=== PATIENT | female | born 1960 | race Caucasian/White ===

== ENCOUNTER 2020-05-20 10:55 | Outpatient (CLI) | payer OTHER, MEDICARE, SELFPAY ==
--- NOTE | ~2020-05-20 | XR_ITS ---
EXAMINATION: HAND-MADAY ARTHRITIS 3+VIEWS DATE: 05/20/2020 11:45 INDICATION: Rheumatoid arthritis TECHNIQUE: Posteroanterior, lateral, and oblique views of the left and of the right hands as well as a ballcatchers view of both hands were obtained. COMPARISON: None. FINDINGS: Bone alignment is normal. No fracture. Mild polyarticular osteoarthritis characterized by nonuniform joint space narrowing and/or small marginal osteophytes at the bilateral triscaphe, first carpometaca rpal and multiple metacarpophalangeal and interphalangeal joints. Subarticular lucency with thin scle rotic margins likely osteoarthritis related degenerative subchondral cyst at the left trapezium. No p eriarticular erosions to suggest an inflammatory arthritis such as rheumatoid. Soft tissues are unrem arkable. IMPRESSION: 1. Typical distribution of mild polyarticular osteoarthritis in both hands. Reviewed, dictated and finalized at location B. UX WEB DEVELOPER
--- NOTE | ~2020-05-20 | XR_ITS ---
EXAMINATION: XR knee LT 3V DATE: 05/20/2020 11:45 INDICATION: Rheumatoid arthritis with rheumatoid factor of multiple sites. TECHNIQUE: 3 views of left knee were obtained. COMPARISON: Left knee radiographs 08/06/2010 FINDINGS: Bone alignment is normal. No fracture. There is moderate osteoarthritis of medial compartme nt and mild osteoarthritis of lateral and patellofemoral compartments. No knee joint effusion. IMPRESSION: 1. Moderate left knee osteoarthritis. Reviewed, dictated and finalized at location A. ICE ATTENDANT
--- NOTE | ~2020-05-20 | XR_ITS ---
EXAMINATION: XR foot RT standing 2V, XR foot LT standing 2V DATE: 05/20/2020 11:45 INDICATION: Rheumatoid arthritis TECHNIQUE: 1. Standing dorsal plantar and lateral views of the right foot were obtained. 2. Standing dorsal plantar and lateral views of the left foot were obtained. COMPARISON: None. FINDINGS: Normal alignment at the bilateral feet. No fractures. Bilateral large Achilles and plantar calcaneal spurs. Additional smaller enthesophytes along the dorsal aspect of the bilateral mid feet. Minimal to mild polyarticular osteoarthritis characterized by nonuniform joint space narrowing and/or tiny eliot inal osteophytes at the left ankle, bilateral first metatarsophalangeal and several tarsal metatarsal and interphalangeal joints. No erosions to suggest an inflammatory arthritis such as rheumatoid. IMPRESSION: 1. Minimal to mild polyarticular osteoarthritis at the bilateral feet and right ankle. No erosions to suggest an inflammatory arthritis such as rheumatoid. 2. Large bilateral Achilles and plantar calcaneal enthesophytes. Reviewed, dictated and finalized at location B. OR SHAREPOINT ARCHITECT IMPRESSION: 1. Minimal to mild polyarticular osteoarthritis at the bilateral feet and right ankle. No erosions to suggest an inflammatory arthritis such as rheumatoid. 2. Large bilateral Achilles and plantar calcaneal enthesophytes.
--- NOTE | ~2020-05-20 | XR_ITS ---
EXAMINATION: XR knee RT 3V DATE: 05/20/2020 11:45 INDICATION: Rheumatoid arthritis with rheumatoid factor of multiple sites. TECHNIQUE: 3 views of right knee were obtained. COMPARISON: None. FINDINGS: Bone alignment is normal. No fracture. There is moderate osteoarthritis of medial compartme nt and mild osteoarthritis of lateral and patellofemoral compartments. There is a small knee joint ef fusion. IMPRESSION: 1. Moderate right knee osteoarthritis. 2. Small right knee joint effusion. Reviewed, dictated and finalized at location A. STRIAL CONVEYOR BELT REPAIRER
--- NOTE | ~2020-05-20 | XR_ITS ---
EXAMINATION: XR hip BI 2V w AP pelvis DATE: 05/20/2020 11:45 INDICATION: Rheumatoid arthritis TECHNIQUE: Anteroposterior view of the pelvis and anteroposterior and frog-leg lateral views of the l eft hip and anteroposterior and frog-leg lateral views of the right hip and were obtained. COMPARISON: None. FINDINGS: Alignment is normal. No fracture or suspected avascular necrosis. Minimal nonuniform joint space narr owing at both hips with marginal osteophytes about the acetabula consistent with mild osteoarthritis. Additional mild osteoarthritis at the bilateral sacral iliac joints. Moderate lumbar spondylosis. No erosions to suggest an inflammatory arthritis such as rheumatoid. Enthesophytes at the bilateral ant erior iliac spines and greater trochanters. Heterotopic ossicle likely at the right buttock projectin g over the soft tissues superolateral to the right hip. Cholecystectomy clips in right upper quadrant . IMPRESSION: 1. Mild bilateral hip and sacroiliac osteoarthritis. No findings to suggest an inflammatory arthritis such as rheumatoid. 2. Moderate lumbar spondylosis. Reviewed, dictated and finalized at location B. L POURER HELPER
== END 2020-05-20 10:56 | disposition home or self-care (01) ==
LOC: ANHIMG 11:04
PROVIDERS: PCP Physician Assistant; Visit Provider Internal Medicine
DX: E55.9 Vitamin D deficiency, unspecified (principal); M05.79 Rheumatoid arthritis with rheumatoid factor of multiple sites without organ or systems involvement; Z11.59 Encounter for screening for other viral diseases; M17.0 Bilateral primary osteoarthritis of knee; M25.461 Effusion, right knee; M19.072 Primary osteoarthritis, left ankle and foot; M19.071 Primary osteoarthritis, right ankle and foot; M77.32 Calcaneal spur, left foot; M77.31 Calcaneal spur, right foot; M19.042 Primary osteoarthritis, left hand; M19.041 Primary osteoarthritis, right hand; M16.0 Bilateral primary osteoarthritis of hip; M47.816 Spondylosis without myelopathy or radiculopathy, lumbar region
CPT/HCPCS: 73130; 73521; 73562; 73620

== ENCOUNTER 2024-05-03 10:00 | Outpatient (CLI) | payer MEDICARE, SELFPAY ==
--- NOTE | ~2024-05-03 | CT_ITS ---
EXAMINATION: CT lung screening DATE: 05/03/2024 10:28 INDICATION: NICOTINE DEPENDENCE TECHNIQUE: Computed tomography (CT) of the chest was performed without intravenous contrast. Addition al 3D reconstructions utilizing coronal maximum intensity projection (MIP) were performed. Automated exposure control and iterative reconstruction technique were employed. The dose-length product was 54 8.89 mGy-cm. COMPARISON: 10/22/2015 FINDINGS: Unilateral left-sided calcified pleural plaques which suggests prior exudative effusion. There is unc hanged chronic linear atelectasis/scarring at the left lower lung. Mild emphysema. Small calcite left upper and lower lobe nodules consistent with old granulomatous disease. No other suspicious pulmonar y nodules, pneumonia, pulmonary edema or pleural effusion. Heart size normal. Atherosclerotic coronar y artery calcific lesion. Thoracic aorta is normal in caliber. No pathologically enlarged thoracic ly mphadenopathy. Change of prior left thyroidectomy. Cholecystectomy clips the gallbladder fossa. Visua lized upper abdomen is otherwise unremarkable. Moderate thoracic spondylosis with bridging osteophyte s at multiple levels consistent with diffuse idiopathic skeletal hyperostosis (DISH). IMPRESSION: 1. Lung-RADS category 1: Negative. Continue annual screening with noncontrast low-dose chest CT in 12 months. Reviewed, dictated and finalized at location A. [employer] IMPRESSION: 1. Lung-RADS category 1: Negative. Continue annual screening with noncontrast l ow-dose chest CT in 12 months.
--- OUTSIDE RECORDS SUMMARY | 2024-05-03 10:17 | XMS_ITS | Referral Summary ---
Author Organization [facility] Address [address] [place] [id number] Care Team Providers Care Laborer Rags Name Role Phone Deandre Fonseca Primary Care Provider + Allergies Active Allergy Reactions Criticality Noted Date Comments Codeine Vomiting Low 05/30/2019 Venlafaxine Other (See comments) Low 05/30/2019 Medications traMADoL (ULTRAM) 50 mg tablet 2 020 Active rivaroxaban (Xarelto) 20 mg tablet daily Active rosuvastatin (CRESTOR) 5 mg tablet rosuvastatin 5 mg tablet TAKE ONE TABLET BY MOUTH EVERY DAY Active potassium chloride ER (potassium chloride ER) 20 mEq CR tablet potassium chloride ER 20 mEq tablet,extended release TAKE ONE CAPSULE BY MOUTH ONCE DAILY Active PARoxetine mesylate,menop. sym, (Brisdelle) 7.5 mg capsule daily Active PARoxetine (PaxiL) 10 mg tablet daily Active pantoprazole DR (PROTONIX) 40 mg EC tablet daily Active losartan-hydroC HLOROthiazide (HYZAAR) 50-12.5 mg per tablet losartan 50 mg-hydrochlorothiazide 12.5 mg tablet Active levothyroxine (SYNTHROID) 175 mcg tablet daily Active levoFLOXacin (LEVAQUIN) 500 mg tablet daily Active hydroCHLOROthia zide (MICROZIDE) 12.5 mg capsule hydrochlorothiazide 12.5 mg capsule Active furosemide (LASIX) 40 mg tablet furosemide 40 mg tablet Take 1 tablet(s) every day by oral route in the morning for 10 days. Active fluticasone propion-salmete roL (Advair Diskus) 250-50 mcg/dose diskus inhaler Advair Diskus 250 mcg-50 mcg/dose powder for inhalation INHALE ONE DOSE BY MOUTH TWICE DAILY RINSE MOUTH Active fluconazole (DIFLUCAN) 150 mg tablet fluconazole 150 mg tablet Take 1 tablet every 72 hours by oral route for 7 days. Active docusate sodium (COLACE) 100 mg capsule every 12 hours Activ e budesonide/form oterol fumarate (SYMBICORT INHAL) Symbicort Active betamethasone dipropionate (DIPROLENE) 0.05 % ointment betamethasone dipropionate 0.05 % topical ointment Active albuterol HFA (Ventolin HFA) 90 mcg/actuation inhaler Ventolin HFA 90 mcg/actuation aerosol inhaler INHALE TWO PUFFS BY MOUTH THREE TIMES DAILY Active adalimumab (Humira) 40 mg/0.8 mL pen injector kit 0.8 mL Active acetaminophen (TYLENOL) 500 mg tablet Take 500 mg by mouth every 6 (six) hours as needed for pain Active Active Problems Problem Noted Date Diagnosed Date Leukopenia 05/28/2019 Immunizations Name Administration Dates Next Due Influenza, Quadrivalent, Split, Intramuscular ,01/03/2017 Influenza, Quadrivalent, Spl it, Preservative Free, Intramuscular 01/09/2018 Social History Tobacco Use Types Packs/Day Years Used Date Smoking Tobacco: Former Cigarettes 1 4 0 04/16/2011 - 04/16/2015 Alcohol Use Standard Drinks/Week Comments Never 0 (1 standard drink = 0.6 oz pur e alcohol) AUDIT-C Answer Date Recorded Q1: How often do you have a drink containing alc ohol? 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 Not on file Not on file Last Filed Vital Signs Vital Sign Reading Time Taken Comments Blood Pressure 142/72 05/30/2019 2:38 PM CDT Pulse 82 05/30/2019 2:38 PM CDT Temperature 36.6 C (97.9 F) 05/30/2019 2:38 PM CDT Respiratory Rate 16 05/30/2019 2:38 PM CDT Oxygen Saturation 98% 05/30/2019 2:38 PM CDT Inhaled Oxygen Concentration - - Weight 156.6 kg (345 lb 3.2 oz) 05/30/2019 2:38 PM CDT Height 168 cm (5' 6.14 ) 05/30/2019 2:38 PM CDT Body Mass Index 55.48 05/30/2019 2:38 PM CDT Plan of Treatment Not on file Insurance MEDICARE [facility] Address: [facility] [address] [place] [address] [facility] Care Teams Laborer Rags Relationship Specialty Start Date End Date Deandre Fonseca PA [address] [place] [address] PCP - General Internal Medicine 05/30/19
--- OUTSIDE RECORDS SUMMARY | 2024-05-03 10:17 | XMS_ITS | Clinical Summary ---
Author Organization [facility] Address [address] [place] [id number] Care Team Providers Care Glass Blower Helper Name Role Phone Deandre Fonseca Primary Care [...] Quadrivalent, Spl it, Preservative Free, Intramuscular 01/09/2018 Surgical History Surgery Date Site/Laterality Comments COLONOSCOPY THYROID SURGERY CHOLECYSTECTOMY TUBAL LIGATION Medical History Medical History Date Comments Hypertension Tuberculosis Hypothyroidism (acquired) Thyroid neoplasm Factor 5 Leiden mutation, heterozygous (HCC) COPD (chronic obstructive pulmonary disease) (HC C) GERD (gastroesophageal reflux disease) Rheumatoid arthritis (HCC) Pulmonary embolus (HCC) DVT (deep venous thrombosis) (CMS/HCC) (HCC) Family History Medical History Relation Name Comments No Known Problems Father No Known Problems Mother Relation Name Status Comments Father Mother Social History Tobacco Use Types Packs/Day Years Used Date Smoking Tobacco: Former Cigarettes 1 4 0 04/16/2011 - 04/16/2015 Alcohol Use Standard Drinks/Week Comments Never 0 (1 standard drink = 0.6 oz pur e alcohol) AUDIT-C Answer Date Recorded Q1: How often do you have a drink containing alc ohol? 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
--- OUTSIDE RECORDS SUMMARY | 2024-05-03 10:17 | XMS_ITS | Data Portability ---
Author Organization [facility] [employer] Main Office Address [address] [place] [address] Assessment No assessment recorded. Plan of Treatment Reminders Order Date Submit Date Provider Last Modified By Organization Details Last Modified Time Details Appointments None recorded. Lab None recorded. Referral None recorded. Procedures cystoscopy (PROC) 2022 023 Not available 4 08:10:00 Surgeries None recorded. Imaging US, bladder 2022 023 [email or web address] [facility] [place], [address] [place] [address], [address], [place], [address], 3 11:16:12 Medication Orders Cipro 500 mg tablet 2022 023 [email or web address] Not available 3 12:45:26 Patient TargetsNo targets recorded. Patient InstructionsNo instructions recorded. Reason for Referral None Reported. Results Created Date Observation Date Name Description Value Unit Range Abnormal Flag Note LastModifiedBy Organization Detail LastModifiedTime 10/05/19 22 10/11/2021 MISCE LLANE OUS TEST misc test see commen t SENT TO REFER ENCE LAB; SEE SEPAR ATE REPOR T Not Available [facility] (Lab) [address] [place] [address], [address], 10/11/2021 09:35:06 10/05/19 22 10/05/2021 THYRO ID PEROX IDASE (TPO) AB thyroid peroxidase (tpo) Ab 15 IU/mL 0-34 Perfo rmed at: CB - [facility] [address] [address] Lab Direc tor: Marciano camarillo PhD, Phone : [phone] Not Available [facility] (Lab) [address] [place], [address], 10/05/2021 09:11:43 10/05/19 22 10/04/2021 HEMOG LOBIN A1C HA1C 5.6 % 4.0-6. 0 Diabe geetha Scree philipp Crite monae: <5.7% Consi stent with absen ce of diabe geetha 5.7-6 .4% Consi stent with incre ased risk for diabe geetha (pred iabet es) >OR=6 .5% Consi stent with diabe geetha REFER ENCE: Diabe geetha Care 2016, 39(Avery ppl.1 ):s13 -s22 Not Available [facility] (Lab) [address] [place], [address], 10/04/2021 21:32:38 10/05/19 22 10/04/2021 FOLAT E, SERUM /PLAS MA folate >20.0 NG/mL 2.76-2 0.0 Not Available [facility] (Lab) [address] [place], [address], 10/04/2021 15:22:49 10/05/19 22 10/04/2021 VITAM IN B12 (SE CON ) vb12 617 pg/mL 239-93 1 Not Available [facility] (Lab) [address] [place], [address], 10/04/2021 15:22:48 10/05/19 22 10/04/2021 TSH thyroid-stim ulating hormone 0.216 uIU/m L 0.465- 4.680 low Not Available [facility] (Lab) [address] [place], [address], 10/04/2021 14:49:15 10/05/19 22 10/04/2021 T3 FREE free T3 3.3 pg/mL 2.77-5 .27 Not Available [facility] (Lab) [address] [place], [address], 10/04/2021 14:36:48 10/05/19 22 10/04/2021 T4 FREE free T4 1.57 NG/dL 0.78-2 .19 Not Available [facility] (Lab) [address] [place], [address], 10/04/2021 14:36:42 10/05/19 22 10/04/2021 VITAM IN D 25-HY DROXY vd25oh 56.7 NG/mL 30-100 Vitam in D Statu s: Defic ient: <20 ng/mL Insuf ficie nt: 20-29 ng/mL Suffi cient : 30-10 0 ng/mL Not Available [facility] (Lab) [address] [place], [address], 10/04/2021 14:33:24 10/05/19 22 10/04/2021 IRON/ TIBC PANEL total iron binding capacity 308 mcg/d L 265-47 5 Not Available [facility] (Lab) [address] [place], [address], 10/04/2021 14:25:50 10/05/19 22 10/04/2021 IRON/ TIBC PANEL % transferrin saturation 30 % 20-55 Not Available [facility] (Lab) [address] [place], [address], 10/04/2021 14:25:50 10/05/19 22 10/04/2021 IRON/ TIBC PANEL unsaturated iron bind capacity 216 mcg/d L 126-38 2 Not Available [facility] (Lab) [address] [place], [address], 10/04/2021 14:25:50 10/05/19 22 10/04/2021 IRON/ TIBC PANEL iron 92 mcg/d L 42-175 Not Available [facility] (Lab) [address] [place], [address], 10/04/2021 14:25:50 10/05/19 22 10/04/2021 LIPID PANEL cholesterol 181 mg/dL 140-19 9 NIH LUMA NSUS RECOM MENDA TION FOR ETHAN STERO L: ADULT CHILD LOW RISK: <200 <170 BORDE RLINE : <200- 239 ----- HIGH RISK: >240 >200 Not Available [facility] (Lab) [address] [place], [address], 10/04/2021 14:20:18 10/05/19 22 10/04/2021 LIPID PANEL triglyceride s 160 mg/dL 0-150 high NIH LUMA NSUS REPOR T RECOM MENDA TION FOR TRIGL YCERI ELIZABETH: ADULT CHILD LOW RISK: <150 ----- BODER LINE: 150-1 99 ----- HIGH RISK: >200 ----- Not Available [facility] (Lab) [address] [place], [address], 10/04/2021 14:20:18 10/05/19 22 10/04/2021 LIPID PANEL HDL cholesterol 51 mg/dL 40- Not Available [facility] (Lab) [address] [place], [address], 10/04/2021 14:20:18 10/05/19 22 10/04/2021 LIPID PANEL LDL cholesterol, calculated 98 mg/dL 0-130 NIH LUMA NSUS REPOR T RECOM MENDA TIONS FOR LDL: ADULT CHILD LOW RISK <130 <110 (OPTI MAL LDL) <100 ----- BORDE RLINE : 130-1 59 ----- HIGH RISK: >160 >130 A TRIGL YCERI DE RESUL T >400 INVAL IDATE S THE CALCU LATIO N FOR LDL FRACT IONAT ION - THE LDL RESUL T WILL NOT BE REPOR MYRNA. Not Available [facility] (Lab) [address] [place], [address], 10/04/2021 14:20:18 10/05/19 22 10/04/2021 COMPR EHENS MAYDA METAB OLIC PANEL sodium 139 mmol/ L 137-14 5 Not Available [facility] (Lab) [address] [place], [address], 10/04/2021 14:20:15 10/05/19 22 10/04/2021 COMPR EHENS MAYDA METAB OLIC PANEL potassium 3.9 mmol/ L 3.5-5. 1 Not Available [facility] (Lab) [address] [place], [address], 10/04/2021 14:20:15 10/05/19 22 10/04/2021 COMPR EHENS MAYDA METAB OLIC PANEL chloride 107 mmol/ L 98-107 Not Available [facility] (Lab) [address] [place], [address], 10/04/2021 14:20:15 10/05/19 22 10/04/2021 COMPR EHENS MAYDA METAB OLIC PANEL carbon dioxide 27 mmol/ L 22-30 Not Available [facility] (Lab) [address] [place], [address], 10/04/2021 14:20:15 10/05/19 22 10/04/2021 COMPR EHENS MAYDA METAB OLIC PANEL anion gap 8.9 mmol/ L 14-22 low Not Available [facility] (Lab) [address] [place], [address], 10/04/2021 14:20:15 10/05/19 22 10/04/2021 COMPR EHENS MAYDA METAB OLIC PANEL glucose 101 mg/dL 70-99 high Not Available [facility] (Lab) [address] [place], [address], 10/04/2021 14:20:15 10/05/19 22 10/04/2021 COMPR EHENS MAYDA METAB OLIC PANEL BUN 11 mg/dL 8-19 Not Available [facility] (Lab) [address] [place], [address], 10/04/2021 14:20:15 10/05/19 22 10/04/2021 COMPR EHENS MAYDA METAB OLIC PANEL creatinine 0.69 mg/dL 0.66-1 .25 Not Available [facility] (Lab) [address] [place], [address], 10/04/2021 14:20:15 10/05/19 22 10/04/2021 COMPR EHENS MAYDA METAB OLIC PANEL GFR >60 Refer ence Range : [place] ge GFR Healt hy Adult : >60 mL/mi n/1.7 3 m2 Chron ic Kidne y Disea se: 15-60 mL/mi n/1.7 3 m2 Kidne y Failu re: <15/m L/min /1.73 m2 www.n iddk. nih.g ov The MDRD study equat ion has not been valid ated in child brayan <18 years of age; pregn ant women ; the elder ly >85 years of age; or in some racia l or ethni c subgr oups, such as Histamy nics. Outsi de the valid ated mena eters , estim ated GFR is less accur ate, requi ring clini alvin judgm ent on a case- by-ca se basis . Clini alvin inter preta tion for other races and ages must be made by the clini cait. The MDRD study equat ion has not been valid ated for the evalu ation of serum creat inine relat ed to nutri benny l statu s or medic ation usage . For perso ns <18 years of age, a pedia tric GFR calcu lator is avail able on the F websi te: https ://adolfo w.javier hahn.o rg/pr ofess ional s/kdo qi/gf r_cal culat or Not Available [facility] (Lab) [address] [place], [address], 10/04/2021 14:20:15 10/05/19 22 10/04/2021 COMPR EHENS MAYDA METAB OLIC PANEL alkaline phosphatase 81 U/L 38-126 Not Available [facility] (Lab) [address] [place], [address], 10/04/2021 14:20:15 10/05/19 22 10/04/2021 COMPR EHENS MAYDA METAB OLIC PANEL alanine aminotransfe rase 26 U/L 0-35 Not Available [facility] (Lab) [address] [place], [address], 10/04/2021 14:20:15 10/05/19 22 10/04/2021 COMPR EHENS MAYDA METAB OLIC PANEL aspartate aminotransfe rase 31 U/L 15-37 Not Available [facility] (Lab) [address] [place], [address], 10/04/2021 14:20:15 10/05/19 22 10/04/2021 COMPR EHENS MAYDA METAB OLIC PANEL bilirubin, total 0.80 mg/dL 0.20-1 .30 Not Available [facility] (Lab) [address] [place], [address], 10/04/2021 14:20:15 10/05/19 22 10/04/2021 COMPR EHENS MAYDA METAB OLIC PANEL calcium 9.1 mg/dL 8.4-10 .2 Not Available [facility] (Lab) [address] [place], [address], 10/04/2021 14:20:15 10/05/19 22 10/04/2021 COMPR EHENS MAYDA METAB OLIC PANEL total protein 6.9 g/dL 6.3-8. 2 Not Available [facility] (Lab) [address] [place], [address], 10/04/2021 14:20:15 10/05/19 22 10/04/2021 COMPR EHENS MAYDA METAB OLIC PANEL albumin 4.1 g/dL 3.4-5. 0 Not Available [facility] (Lab) [address] [place], [address], 10/04/2021 14:20:15 10/05/19 22 10/04/2021 COMPR EHENS MAYDA METAB OLIC PANEL globulin 2.8 g/dL 2.6-4. 2 Not Available [facility] (Lab) [address] [place], [address], 10/04/2021 14:20:15 10/05/19 22 10/04/2021 COMPR EHENS MAYDA METAB OLIC PANEL A/G ratio 1.5 ratio 1.0-2. 0 Not Available [facility] (Lab) [address] [place], [address], 10/04/2021 14:20:15 10/05/19 22 10/04/2021 CBC/C OMPLE TE BLD COUNT W/DIF F white blood cells 3.4 x10'3 /uL 4.2-10 .8 low Not Available [facility] (Lab) [address] [place], [address], 10/04/2021 13:56:21 10/05/19 22 10/04/2021 CBC/C OMPLE TE BLD COUNT W/DIF F red blood cells 4.75 x10'6 /uL 3.80-5 .20 Not Available [facility] (Lab) [address] [place], [address], 10/04/2021 13:56:21 10/05/19 22 10/04/2021 CBC/C OMPLE TE BLD COUNT W/DIF F hemoglobin 13.8 g/dL 12.0-1 5.6 Not Available [facility] (Lab) [address] [place], [address], 10/04/2021 13:56:21 10/05/19 22 10/04/2021 CBC/C OMPLE TE BLD COUNT W/DIF F hematocrit 42.8 % 35.7-4 5.7 Not Available [facility] (Lab) [address] [place], [address], 10/04/2021 13:56:21 10/05/19 22 10/04/2021 CBC/C OMPLE TE BLD COUNT W/DIF F mean red cell volume 90.1 fL 82.0-9 9.0 Not Available [facility] (Lab) [address] [place], [address], 10/04/2021 13:56:21 10/05/19 22 10/04/2021 CBC/C OMPLE TE BLD COUNT W/DIF F mean red cell hemoglobin 29.1 pg 27.0-3 3.0 Not Available [facility] (Lab) [address] [place], [address], 10/04/2021 13:56:21 10/05/19 22 10/04/2021 CBC/C OMPLE TE BLD COUNT W/DIF F mean RBC HGB concentratio n 32.2 g/dL 31.0-3 6.0 Not Available [facility] (Lab) [address] [place], [address], 10/04/2021 13:56:21 10/05/19 22 10/04/2021 CBC/C OMPLE TE BLD COUNT W/DIF F red cell distribution width 13.2 % 11.8-1 5.5 Not Available [facility] (Lab) [address] [place], [address], 10/04/2021 13:56:21 10/05/19 22 10/04/2021 CBC/C OMPLE TE BLD COUNT W/DIF F platelets 171 x10'3 /uL 150-40 0 Not Available [facility] (Lab) [address] [place], [address], 10/04/2021 13:56:21 10/05/19 22 10/04/2021 CBC/C OMPLE TE BLD COUNT W/DIF F mean platelet volume 10.5 fL 9.0-12 .4 Not Available [facility] (Lab) [address] [place], [address], 10/04/2021 13:56:21 10/05/19 22 10/04/2021 CBC/C OMPLE TE BLD COUNT W/DIF F neutrophils 42.0 % 39.0-7 2.0 Not Available [facility] (Lab) [address] [place], [address], 10/04/2021 13:56:21 10/05/19 22 10/04/2021 CBC/C OMPLE TE BLD COUNT W/DIF F lymphocytes 41.3 % 16.0-4 7.0 Not Available [facility] (Lab) [address] [place], [address], 10/04/2021 13:56:21 10/05/19 22 10/04/2021 CBC/C OMPLE TE BLD COUNT W/DIF F monocytes 10.8 % 5.0-12 .0 Not Available [facility] (Lab) [address] [place], [address], 10/04/2021 13:56:21 10/05/19 22 10/04/2021 CBC/C OMPLE TE BLD COUNT W/DIF F eosinophils 4.7 % 1.0-7. 0 Not Available [facility] (Lab) [address] [place], [address], 10/04/2021 13:56:21 10/05/19 22 10/04/2021 CBC/C OMPLE TE BLD COUNT W/DIF F basophils 0.9 % 0.0-2. 0 Not Available [facility] (Lab) [address] [place], [address], 10/04/2021 13:56:21 10/05/19 22 10/04/2021 CBC/C OMPLE TE BLD COUNT W/DIF F immature granulocytes 0.3 % 0.00-0 .50 Not Available [facility] (Lab) [address] [place], [address], 10/04/2021 13:56:21 10/05/19 22 10/04/2021 CBC/C OMPLE TE BLD COUNT W/DIF F neutrophils, absolute count 1.45 x10'3 /uL 1.5-8. 0 low Not Available [facility] (Lab) [address] [place], [address], 10/04/2021 13:56:21 10/05/19 22 10/04/2021 CBC/C OMPLE TE BLD COUNT W/DIF F lymphocytes, absolute count 1.42 x10'3 /uL 1.07-3 .43 Not Available [facility] (Lab) [address] [place], [address], 10/04/2021 13:56:21 10/05/19 22 10/04/2021 CBC/C OMPLE TE BLD COUNT W/DIF F monocytes, absolute count 0.37 x10'3 /uL 0.29-0 .99 Not Available [facility] (Lab) [address] [place], [address], 10/04/2021 13:56:21 10/05/19 22 10/04/2021 CBC/C OMPLE TE BLD COUNT W/DIF F eosinophils, absolute count 0.16 x10'3 /uL 0.02-0 .53 Not Available [facility] (Lab) [address] [place], [address], 10/04/2021 13:56:21 10/05/19 22 10/04/2021 CBC/C OMPLE TE BLD COUNT W/DIF F basophils, absolute count 0.03 x10'3 /uL 0.01-0 .08 Not Available [facility] (Lab) [address] [place], [address], 10/04/2021 13:56:21 10/05/19 22 10/04/2021 CBC/C OMPLE TE BLD COUNT W/DIF F immature granulocytes ,absolute 0.01 x10'3 /uL 0.00-0 .05 Not Available [facility] (Lab) [address] [place], [address], 10/04/2021 13:56:21 10/05/19 22 10/04/2021 CBC/C OMPLE TE BLD COUNT W/DIF F nucleated red blood cells 0.0 % -0 Not Available [facility] (Lab) [address] [place], [address], 10/04/2021 13:56:21 10/05/19 22 10/04/2021 CBC/C OMPLE TE BLD COUNT W/DIF F NRBC# 0.00 x10'3 /uL Not Available [facility] (Lab) [address] [place], [address], 10/04/2021 13:56:21 01/26/20 22 01/31/2022 MISCE LLANE OUS TEST misc test see commen t SENT TO REFER ENCE LAB; SEE SEPAR ATE REPOR T Not Available [facility] (Lab) [address] [place], [address], 01/31/2022 09:47:27 01/26/20 22 01/25/2022 HEMOG LOBIN A1C HA1C 5.3 % 4.0-6. 0 Diabe geetha Scree philipp Crite monae: <5.7% Consi stent with absen ce of diabe geetha 5.7-6 .4% Consi stent with incre ased risk for diabe geetha (pred iabet es) >OR=6 .5% Consi stent with diabe geetha REFER ENCE: Diabe geetha Care 2016, 39(Avery ppl.1 ):s13 -s22 Not Available [facility] (Lab) [address] [place], [address], 01/25/2022 14:43:43 01/26/20 22 01/25/2022 TSH thyroid-stim ulating hormone 5.260 uIU/m L 0.465- 4.680 high Not Available [facility] (Lab) [address] [place], [address], 01/25/2022 12:07:14 01/26/20 22 01/25/2022 T3 FREE free T3 3.0 pg/mL 2.77-5 .27 Not Available [facility] (Lab) [address] [place], [address], 01/25/2022 11:51:13 01/26/20 22 01/25/2022 T4 FREE free T4 1.39 NG/dL 0.78-2 .19 Not Available [facility] (Lab) [address] [place], [address], 01/25/2022 11:51:09 01/26/20 22 01/25/2022 COMPR EHENS MAYDA METAB OLIC PANEL aspartate aminotransfe rase 26 U/L 15-37 Not Available [facility] (Lab) [address] [place], [address], 01/25/2022 11:50:00 01/26/20 22 01/25/2022 COMPR EHENS MAYDA METAB OLIC PANEL bilirubin, total 0.80 mg/dL 0.20-1 .30 Not Available [facility] (Lab) [address] [place], [address], 01/25/2022 11:50:00 01/26/20 22 01/25/2022 COMPR EHENS MAYDA METAB OLIC PANEL calcium 9.5 mg/dL 8.4-10 .2 Not Available [facility] (Lab) [address] [place], [address], 01/25/2022 11:50:00 01/26/20 22 01/25/2022 COMPR EHENS MAYDA METAB OLIC PANEL total protein 7.2 g/dL 6.3-8. 2 Not Available [facility] (Lab) [address] [place], [address], 01/25/2022 11:50:00 01/26/20 22 01/25/2022 COMPR EHENS MAYDA METAB OLIC PANEL albumin 4.2 g/dL 3.4-5. 0 Not Available [facility] (Lab) [address] [place], [address], 01/25/2022 11:50:00 01/26/20 22 01/25/2022 COMPR EHENS MAYDA METAB OLIC PANEL globulin 3.0 g/dL 2.6-4. 2 Not Available [facility] (Lab) [address] [place], [address], 01/25/2022 11:50:00 01/26/20 22 01/25/2022 COMPR EHENS MAYDA METAB OLIC PANEL A/G ratio 1.4 ratio 1.0-2. 0 Not Available [facility] (Lab) [address] [place], [address], 01/25/2022 11:50:00 01/26/20 22 01/25/2022 COMPR EHENS MAYDA METAB OLIC PANEL sodium 140 mmol/ L 137-14 5 Not Available [facility] (Lab) [address] [place], [address], 01/25/2022 11:50:00 01/26/20 22 01/25/2022 COMPR EHENS MAYDA METAB OLIC PANEL potassium 4.4 mmol/ L 3.5-5. 1 Not Available [facility] (Lab) [address] [place], [address], 01/25/2022 11:50:00 01/26/20 22 01/25/2022 COMPR EHENS MAYDA METAB OLIC PANEL chloride 104 mmol/ L 98-107 Not Available [facility] (Lab) [address] [place], [address], 01/25/2022 11:50:00 01/26/20 22 01/25/2022 COMPR EHENS MAYDA METAB OLIC PANEL carbon dioxide 29 mmol/ L 22-30 Not Available [facility] (Lab) [address] [place], [address], 01/25/2022 11:50:00 01/26/20 22 01/25/2022 COMPR EHENS MAYDA METAB OLIC PANEL anion gap 11.4 mmol/ L 14-22 low Not Available [facility] (Lab) [address] [facility] [place], [address], 01/25/2022 11:50:00 01/26/20 22 01/25/2022 COMPR EHENS MAYDA METAB OLIC PANEL glucose 92 mg/dL 70-99 Not Available [facility] (Lab) [address] [facility] [place], [address], 01/25/2022 11:50:00 01/26/20 22 01/25/2022 COMPR EHENS MAYDA METAB OLIC PANEL BUN 10 mg/dL 8-19 Not Available [facility] (Lab) [address] [place], [address], 01/25/2022 11:50:00 01/26/20 22 01/25/2022 COMPR EHENS MAYDA METAB OLIC PANEL creatinine 0.74 mg/dL 0.66-1 .25 Not Available [facility] (Lab) [address] [place], [address], 01/25/2022 11:50:00 01/26/20 22 01/25/2022 COMPR EHENS MAYDA METAB OLIC PANEL GFR >60 Refer ence Range : [place] ge GFR Healt hy Adult : >60 mL/mi n/1.7 3 m2 Chron ic Kidne y Disea se: 15-60 mL/mi n/1.7 3 m2 Kidne y Failu re: <15/m L/min /1.73 m2 www.n iddk. nih.g ov The MDRD study equat ion has not been valid ated in child brayan <18 years of age; pregn ant women ; the elder ly >85 years of age; or in some racia l or ethni c subgr oups, such as Hispa nics. Outsi de the valid ated mena eters , estim ated GFR is less accur ate, requi ring clini alvin judgm ent on a case- by-ca se basis . Clini alvin inter preta tion for other races and ages must be made by the clini cait. The MDRD study equat ion has not been valid ated for the evalu ation of serum creat inine relat ed to nutri benny l statu s or medic ation usage . For perso ns <18 years of age, a pedia tric GFR calcu lator is avail able on the [facility] websi te: https ://adolfo w.javier hahn.o rg/pr ofess ional s/kdo qi/gf r_cal culat or Not Available [facility] (Lab) [address] [place], [address], 01/25/2022 11:50:00 01/26/20 22 01/25/2022 COMPR EHENS MAYDA METAB OLIC PANEL alkaline phosphatase 84 U/L 38-126 Not Available [facility] (Lab) [address] [place], [address], 01/25/2022 11:50:00 01/26/20 22 01/25/2022 COMPR EHENS MAYDA METAB OLIC PANEL alanine aminotransfe rase 19 U/L 0-35 Not Available [facility] (Lab) [address] [place], [address], 01/25/2022 11:50:00 09/02/19 23 09/01/2022 US, blahector er No observ ation record ed. [email or web address] [place] [address] [place] [address], [address], [place], [address], 09/08/2022 08:27:41 Result Notes None recorded. Problems Name Problem SNOMED Code Status Onset Date Resolution Date Notes Provider Name and Address Organization Details Recorded Time Dyspnea 440189397 Active Not Available [facility] 3 18:20:43 Vitamin D deficiency 06178746 Active 2021 Not Available [facility] 3 18:20:43 Hypothyroidis m 12733915 Active 2021 Not Available [facility] 3 18:20:43 Pulmonary embolism 78186932 Active Not Available [facility] 3 18:20:44 Prediabetes 689440670 Active 2021 Not Available [facility] 3 18:20:44 Obstructive sleep apnea syndrome 67236690 Active Not Available [facility] 3 18:20:44 Urinary incontinence 824847332 Active 2022 Marilyn Coronado MA [facility], [facility] [employer] [facility] 10:49:04 Problem Notes None recorded. Procedures Surgical History Date Name Laterality Status Provider Name and Address Organization Details Recorded Time 11/11/19 Cystoscopy (female) completed Andrzej Ayala MD [address] [place] [address], [place] [address], [place], [address], [facility] [place] [employer] [facility] 11/10/2022 10:44:05 06/24/19 Colonoscopy completed Not Available [facility] 05/19/19 18:20:10 thyroidectomy completed Not Available [facility] 05/18/2022 18:20:10 Imaging Results Imaging Date Name Status LastModified by Organiz ation Details LastModified Time 09/01/2022 US, bladder completed [email or web address] [place] [address] [facility], [address], [place], [address], 09/08/2022 08:27:41 Procedure Notes None recorded. Medical Equipment None Reported. Allergies Allergen ID Allergen Name Allergen Category Reaction Reaction Severity Criticality Documentation Date Start Date Code Code System Note Provider Name and Address Organization Details Recorded Time 87944 codeine medicatio n vomiting Not available Not available 05/18/2022 2670 RxNorm Not Available [facility] 3 18:22:18 Medications Name Sig Start Date Stop Date Status Note LastModified by Organization Details LastModified Time losartan 50 mg tablet TAKE 1 TABLET BY MOUTH EVERY DAY IN THE MORNING active Not Available Not Available No t Available furosemide 40 mg tablet Take 1 tablet every day by oral route for 30 days. 09/01 completed Not Available Not Available Not Available levothyroxin e 175 mcg tablet 07/08 completed Not Available Not Available Not Available levothyroxin e 137 mcg tablet TAKE 1 TABLET BY MOUTH EVERY DAY IN THE MORNING active Not Available Not Available No t Available doxycycline hyclate 100 mg capsule TAKE 1 CAPSULE TWICE A DAY BY ORAL ROUTE AFTER MEALS FOR 10 DAYS. 09/01 completed Not Available Not Available Not Available sulfasalazin e 500 mg tablet 09/01 completed Not Available Not Available Not Available albuterol sulfate 2.5 mg/3 mL (0.083 %) solution for nebulization active Not Available Not Available Not Available atorvastatin 10 mg tablet TAKE 1 TABLET BY MOUTH EVERY DAY active Not Available Not Available No t Available Q-Dryl 25 mg capsule TK ONE C PO Q 4 H PRN 07/04 completed Not Available Not Available Not Available phenazopyrid ine 200 mg tablet 09/01 completed Not Available Not Available Not Available prednisone 5 mg tablet 1 po qd 09/01 completed Not Available Not Available Not Available leflunomide 10 mg tablet active Not Available Not Available Not Available metronidazol e 500 mg tablet 09/01 completed Not Available Not Available Not Available leflunomide 20 mg tablet TAKE 1 TABLET BY MOUTH DAILY active Not Available Not Available No t Available tramadol 50 mg tablet TAKE 1 TABLET BY MOUTH TWICE DAILY active Not Available Not Available No t Available triamcinolon e acetonide 0.1 % topical cream 09/01 completed Not Available Not Available Not Available spironolacto ne 25 mg tablet TAKE 1 TABLET BY MOUTH EVERY DAY active Not Available Not Available No t Available acyclovir 800 mg tablet active Not Available Not Available Not Available potassium chloride ER 20 mEq tablet,exten ded release(part /cryst) 09/01 completed Not Available Not Available Not Available methotrexate sodium 2.5 mg tablet 09/01 completed Not Available Not Available Not Available hydrocodone 7.5 mg-acetamino phen 325 mg tablet active Not Available Not Available Not Available pantoprazole 40 mg tablet,delay ed release TAKE 1 TABLET BY MOUTH EVERY DAY active Not Available Not Available No t Available biotin 10,000 mcg capsule Take 1 capsule every day by oral route. 2021 active Not Available Not Available Not Avai lable Cipro 500 mg tablet Take 1 tablet every 12 hours by oral route. 2022 active Not Available Not Available Not Avai lable warfarin 2 mg tablet active Not Available Not Available No t Available warfarin 5 mg tablet active Not Available Not Available No t Available levothyroxin e 150 mcg tablet Take 1 tablet every day by oral route. 10/12 completed Not Available Not Available Not Available docusate sodium 100 mg capsule TAKE 1 CAPSULE BY MOUTH TWICE DAILY NEEDED active Not Available Not Available No t Available diltiazem CD 120 mg capsule,exte nded release 24 hr TAKE 1 CAPSULE BY MOUTH EVERY DAY active Not Available Not Available No t Available folic acid 1 mg tablet 09/01 completed Not Available Not Available Not Available levothyroxin e 200 mcg tablet 07/08 completed Not Available Not Available Not Available warfarin 1 mg tablet active Not Available Not Available No t Available hydroxychlor oquine 200 mg tablet 09/01 completed Not Available Not Available Not Available losartan 50 mg-hydrochlo rothiazide 12.5 mg tablet active Not Available Not Available Not Available losartan 100 mg tablet 09/01 completed Not Available Not Available Not Available metformin ER 500 mg tablet,exten ded release 24 hr Take 1 tablet every day by oral route at dinner for 90 days. active Not Available Not Available No t Available Ventolin HFA 90 mcg/actuatio n aerosol inhaler active Not Available Not Available Not Available ezetimibe 10 mg tablet TAKE 1 TABLET BY MOUTH EVERY DAY IN THE MORNING active Not Available Not Available No t Available Advair HFA 115 mcg-21 mcg/actuatio n aerosol inhaler INHALE TWO puffs BY MOUTH TWICE DAILY active Not Available Not Available No t Available Xarelto 20 mg tablet TAKE 1 TABLET BY MOUTH EVERY DAY active Not Available Not Available No t Available Humira(CF) 40 mg/0.4 mL subcutaneous syringe kit 09/01 completed Not Available Not Available Not Available Humira(CF) Pen 40 mg/0.4 mL subcutaneous kit active Not Available Not Available Not Available Vitals Date Recorded Body mass index (BMI) Body height Oxygen saturation Oxygen saturation in Arterial blood by Pulse oximetry Heart rate Body temperature Body weight Systolic blood pressure Diastolic blood pressure Provider Name and Address Organization Details Last Updated DateTime 3 59.5 kg/m2 160.02 cm 100 % 100 % 84 /min 98 [degF] 838585. 04 g 150 mm[Hg] 100 mm[Hg] Not Available [facility] 3 18:20:15 Date Recorded Body height Heart rate Body temperature Oxygen saturation Oxygen saturation in Arterial blood by Pulse oximetry Systolic blood pressure Diastolic blood pressure Provider Name and Address Organization Details Last Updated DateTime 3 167.64 cm 80 /min 98.7 [degF] 96 % 96 % 173 mm[Hg] 105 mm[Hg] Marilyn Coronado MA [employer] 3 10:44:52 Date Recorded Body weight Provider Name an d Address Organization Details Last Updated DateTime 09/01/2022 695266.38 g ROMMEL Campbell [employer] 09/01/2022 10:47:10 Date Recorded Body height Provider Name an d Address Organization Details Last Updated DateTime 11/10/2022 167.64 cm Marilyn Coronado MA [employer] 11/10/2022 10:05:31 Social History Question Answer Notes LastModified by Organizat ion Details LastModified Time Tobacco Smoking Status Former Smoker Quit 5 yrs ago Not Available [facility] 05/18/2022 18:20:04 What Is Your Level Of Alcohol Consumption? None [id number] Information not available 05/18/2022 What Is Your Level Of Caffeine Consumption? Heavy [id number] Information not available 05/18/2022 What Is Your Occupation? [employer] [id number] Information not available 05/18/2022 When Did You Quit Smoking? 1-5yearssince lastcigarette Information not available 09/01/2022 What Is Your Relationship Status? [id number] Information not available 05/18/2022 Do You Use Any Illicit Or Recreational Drugs? No Information not available 09/01/2022 Has Tobacco Cessation Counseling Been Provided? No Information not available 09/01/2022 Do You Or Have You Ever Used Any Other Forms Of Tobacco Or Nicotine? No Information not available 09/01/2022 Sex: Female Functional Status None recorded. Mental Status None recorded. Family History Relationship Description Onset Age of this Age Resolved Age Notes LastModified by Organization Details LastModified Time Unspecified Relation Heart disease Not available 2022 10:46:14 Unspecified Relation Hypertensive disorder Not available 2022 10:46:27 Unspecified Relation Malignant neoplasm of urinary bladder Not available 2022 10:46:37 Medical History Condition Response DIABETES, TYPE Y HEADACHES/MIGRAINES Y OBESITY Y BLOOD CLOTS Y HYPERTENSION Y HIGH CHOLESTEROL / HYPERLIPIDEMIA Y Gynecological HistoryNo gynecological history recorded. Obstetrics History GPAL:G 0 P 0 0 0 0 Past Encounters Encounter ID Performer Location Encounter Start Date Encounter Closed Date Diagnosis/Indication Diagnosis SNOMED-CT Code Diagnosis ICD10 Code Diagnosis Note [id number] _ATHENA_M IGRATION_ DEFAULT_1 _1 , 07/08/2021 00:00:00 07/08/2021 09:45:34 [id number] [facility] [address] [place] [address] 10/12/2021 00:00:00 10/12/2021 10:08:29 [id number] Andrzej Ayala MD [facility] [address] [address] 09/01/2022 10:09:56 09/01/2022 11:16:12 Urinary incontinence 947023360 R32 Patient given informatio n on urinary incontinen ce and treatment. Will proceed with testing. cysto and Urodynamic s. [id number] Andrzej Ayala MD [facility] [address] [address] 11/10/2022 09:53:30 11/10/2022 10:46:00 Urinary incontinence 633623596 R32 findings c/w OABtrial of Mirabegron .follow up Health Concerns Section Related Observation LastModified by Organization Detai ls LastModified Time None Recorded Concern Status LastModified by Organization Details LastModified Time None Recorded Advance Directives Directive None Recorded Payers Encounter Date Sequence Insurance Name Policy Number Policy Vivas Covered Member ID Vivas Member ID Guarantor Name 09/01/2022 1 [facility] (MEDICARE REPLACEMENT/A DVANTAGE - HMO) [id number] Nory Johansen [id number] Nory Johansen 11/10/2022 1 [facility] (MEDICARE REPLACEMENT/A DVANTAGE - HMO) [id number] Nory Johansen [id number] Nory Johansen Notes Date Note Type Note Provider Name and Address Organization Details Recorded Time 09/01/2022 text/html 61 yo female wit h urinary incontinence both stress and urge. She wears depends. She has one daughter born vaginally. No retention, recurrent uti's or kidney problems. Has multiple medical problems with morbid obesity, DM, recurrent PE s, hypothyroid, lung disease. Andrzej Ayala MD [address] [place] [address], [place], [address], [facility] 09/01/2022 11:14:56 OBGyn Episode No OBEpisode recorded.
== END 2024-05-03 10:01 | disposition home or self-care (01) ==
PROVIDERS: PCP Family Medicine; Visit Provider Family Medicine
DX: Z12.2 Encounter for screening for malignant neoplasm of respiratory organs (principal); Z87.891 Personal history of nicotine dependence
CPT/HCPCS: 71271

== ENCOUNTER 2024-06-20 08:00 | Outpatient (CLI) | payer MEDICARE, SELFPAY ==
--- NOTE | ~2024-06-20 | CT_ITS ---
Clinical Indication: Aortic aneurysm CT Scan of the Chest, Abdomen, and Pelvis with Contrast: Technique: Contiguous sections were acquired throughout the chest, abdomen, and pelvis after intraven ous administration of 100 cc of Omnipaque 350. Dose reduction technique was used on this scan by fridea mcarthuring automated exposure control and iterative reconstruction technique. The dose-length product (DL P) was 1964.67 mGy-cm. Comparison: 05/03/2024 Findings: There is no evidence of any significant mediastinal, hilar or axillary lymphadenopathy. The mediastin al soft tissues appear normal. Ascending aorta measures 4.4 cm in diameter. No aortic dissection. No large central pulmonary embolus identified. There is no evidence of pleural or pericardial effusion. Left calcified pleural plaques are present. The lungs are clear. No pulmonary nodules or infiltrates are noted. There is diffuse hepatic steatosis. Cholecystectomy clips are present. The spleen, pancreas, adrenals and kidneys are within normal limits. No evidence of aortic aneurysm or dissection. There are ather osclerotic calcifications of the aorta. . No lymphadenopathy. No bowel obstruction or bowel wall thickening. There is no evidence to suggest acute appendicitis. There is mild diffuse urinary bladder wall thickening with small bubble of air in the urinary bladder . There is a exophytic left-sided fibroid or left ovarian mass, measuring 3.9 cm in diameter. No asci geetha.. Impression: Ascending aortic aneurysm measures 4.4 cm in diameter. No aortic dissection. Diffuse hepatic steatosis. Cystitis. Exophytic left-sided fibroid versus left ovarian mass. Pelvic ultrasound advised to further evaluate. Calcified left pleural plaques. Reviewed, dictated and finalized at location . Impression: Ascending aortic aneurysm measures 4.4 cm in diameter. No aortic dissection. Diffuse hepatic steatosis. Cystitis. Exophytic left-sided fibroid versus left ovarian mass. Pelvic ultrasound advise d to further evaluate. Calcified left pleural plaques.
--- OUTSIDE RECORDS SUMMARY | 2024-06-20 08:11 | XMS_ITS | Data Portability ---
Author Organization [facility], Main Office Address [address] [place] [address] Assessment No assessment recorded. Plan of Treatment Reminders Order Date Submit Date Provider Last Modified By Organization Details Last Modified Time Details Appointments None recorded. Lab None recorded. Referral None recorded. Procedures cystoscopy (PROC) 2022 023 [email or web address] Not available 4 08:10:00 Surgeries None recorded. Imaging US, bladder 2022 023 [email or web address] [facility], [address] [address], [place], [address], 3 11:16:12 Medication Orders Cipro 500 mg tablet 2022 023 [email or web address] Not available 3 12:45:26 Patient TargetsNo targets [...] [facility] (Lab) [address] [place], [address], 10/11/2021 09:35:06 10/05/19 22 10/05/2021 THYRO ID PEROX IDASE (TPO) AB thyroid peroxidase (tpo) Ab 15 IU/mL 0-34 Perfo rmed at: [facility] [address] [address] Lab Direc tor: Marciano camarillo PhD, Phone : [phone] Not Available [facility] (Lab) [address] [place], [address], 10/05/2021 09:11:43 10/05/19 22 10/04/2021 HEMOG LOBIN [...] [facility] (Lab) [address] [place], [address], 10/04/2021 21:32:38 10/05/19 22 10/04/2021 FOLAT E, SERUM /PLAS MA folate >20.0 NG/mL 2.76-2 0.0 Not Available [facility] (Lab) [address] [place], [address], 10/04/2021 15:22:49 10/05/19 22 10/04/2021 VITAM IN B12 (SE CON ) vb12 617 pg/mL 239-93 1 Not Available [facility] (Lab) [address] [place], [address], 10/04/2021 15:22:48 10/05/19 22 10/04/2021 TSH thyroid-stim ulating hormone 0.216 uIU/m L 0.465- 4.680 low Not Available [facility] (Lab) [address] [place], [address], 10/04/2021 14:49:15 10/05/19 22 10/04/2021 T3 FREE free T3 3.3 pg/mL 2.77-5 .27 Not Available [facility] (Lab) [address] [place], [address], 10/04/2021 14:36:48 10/05/19 22 10/04/2021 T4 FREE free T4 1.57 NG/dL 0.78-2 .19 Not Available [facility] (Lab) [address] [place], [address], 10/04/2021 14:36:42 10/05/19 22 10/04/2021 VITAM IN D 25-HY DROXY vd25oh 56.7 NG/mL 30-100 Vitam in D Statu s: Defic ient: <20 ng/mL Insuf ficie nt: 20-29 ng/mL Suffi cient : 30-10 0 ng/mL Not Available [facility] (Lab) [address] [place], [address], 10/04/2021 14:33:24 10/05/19 22 10/04/2021 IRON/ TIBC PANEL total iron binding capacity 308 mcg/d L 265-47 5 Not Available [facility] (Lab) [address] [place], [address], 10/04/2021 14:25:50 10/05/19 22 10/04/2021 IRON/ TIBC PANEL % transferrin saturation 30 % 20-55 Not Available [facility] (Lab) [address] [place], [address], 10/04/2021 14:25:50 10/05/19 22 10/04/2021 IRON/ TIBC PANEL unsaturated iron bind capacity 216 mcg/d L 126-38 2 Not Available [facility] (Lab) [address] [place], [address], 10/04/2021 14:25:50 10/05/19 22 10/04/2021 IRON/ TIBC PANEL iron 92 mcg/d L 42-175 Not Available [facility] (Lab) [address] [place], [address], 10/04/2021 14:25:50 10/05/19 22 10/04/2021 LIPID PANEL cholesterol 181 mg/dL 140-19 9 NIH LUMA NSUS RECOM MENDA TION FOR ETHAN STERO L: ADULT CHILD LOW RISK: <200 <170 BORDE RLINE : <200- 239 ----- HIGH RISK: >240 >200 Not Available [facility] (Lab) [address] [place], [address], 10/04/2021 14:20:18 10/05/19 22 10/04/2021 LIPID PANEL triglyceride s 160 mg/dL 0-150 high NIH LUMA NSUS REPOR T RECOM MENDA TION FOR TRIGL YCERI ELIZABETH: ADULT CHILD LOW RISK: <150 ----- BODER LINE: 150-1 99 ----- HIGH RISK: >200 ----- Not Available [facility] (Lab) [address] [place], [address], 10/04/2021 14:20:18 10/05/19 22 10/04/2021 LIPID PANEL HDL cholesterol 51 mg/dL 40- Not Available [facility] (Lab) [address] [place], [address], 10/04/2021 14:20:18 10/05/19 22 10/04/2021 LIPID PANEL [...] [facility] (Lab) [address] [place], [address], 10/04/2021 14:20:18 10/05/19 22 10/04/2021 COMPR EHENS MAYDA METAB OLIC PANEL sodium 139 mmol/ L 137-14 5 Not Available [facility] (Lab) [address] [place], [address], 10/04/2021 14:20:15 10/05/19 22 10/04/2021 COMPR EHENS MAYDA METAB OLIC PANEL potassium 3.9 mmol/ L 3.5-5. 1 Not Available [facility] (Lab) [address] [place], [address], 10/04/2021 14:20:15 10/05/19 22 10/04/2021 COMPR EHENS MAYDA METAB OLIC PANEL chloride 107 mmol/ L 98-107 Not Available [facility] (Lab) [address] [place], [address], 10/04/2021 14:20:15 10/05/19 22 10/04/2021 COMPR EHENS MAYDA METAB OLIC PANEL carbon dioxide 27 mmol/ L 22-30 Not Available [facility] (Lab) [address] [place], [address], 10/04/2021 14:20:15 10/05/19 22 10/04/2021 COMPR EHENS MAYDA METAB OLIC PANEL anion gap 8.9 mmol/ L 14-22 low Not Available [facility] (Lab) [address] [place], [address], 10/04/2021 14:20:15 10/05/19 22 10/04/2021 COMPR EHENS MAYDA METAB OLIC PANEL glucose 101 mg/dL 70-99 high Not Available [facility] (Lab) [address] [place], [address], 10/04/2021 14:20:15 10/05/19 22 10/04/2021 COMPR EHENS MAYDA METAB OLIC PANEL BUN 11 mg/dL 8-19 Not Available [facility] (Lab) [address] [place], [address], 10/04/2021 14:20:15 10/05/19 22 10/04/2021 COMPR EHENS MAYDA METAB OLIC PANEL creatinine 0.69 mg/dL 0.66-1 .25 Not Available [facility] (Lab) [address] [place], [address], 10/04/2021 14:20:15 10/05/19 22 10/04/2021 COMPR EHENS MAYDA METAB OLIC PANEL GFR >60 Refer ence Range : [place] GFR Healt hy Adult : >60 [...] or ethni c subgr oups, such as Hishi nics. Outsi de the valid ated mena [...] calcu lator is avail able on the [employer] websi te: https ://adolfo w.kid selma.o rg/pr ofess ional s/kdo qi/gf r_cal culat or Not Available [facility] (Lab) [address] [place], [address], 10/04/2021 14:20:15 10/05/19 22 10/04/2021 COMPR EHENS MAYDA METAB OLIC PANEL alkaline phosphatase 81 U/L 38-126 Not Available [facility] (Lab) [address] [place], [address], 10/04/2021 14:20:15 10/05/19 22 10/04/2021 COMPR EHENS MAYDA METAB OLIC PANEL alanine aminotransfe rase 26 U/L 0-35 Not Available [facility] (Lab) [address] [place], [address], 10/04/2021 14:20:15 10/05/19 22 10/04/2021 COMPR EHENS MAYDA METAB OLIC PANEL aspartate aminotransfe rase 31 U/L 15-37 Not Available [facility] (Lab) [address] [place], [address], 10/04/2021 14:20:15 10/05/19 22 10/04/2021 COMPR EHENS MAYDA METAB OLIC PANEL bilirubin, total 0.80 mg/dL 0.20-1 .30 Not Available [facility] (Lab) [address] [place], [address], 10/04/2021 14:20:15 10/05/19 22 10/04/2021 COMPR EHENS MAYDA METAB OLIC PANEL calcium 9.1 mg/dL 8.4-10 .2 Not Available [facility] (Lab) [address] [place], [address], 10/04/2021 14:20:15 10/05/19 22 10/04/2021 COMPR EHENS MAYDA METAB OLIC PANEL total protein 6.9 g/dL 6.3-8. 2 Not Available [facility] (Lab) [address] [place], [address], 10/04/2021 14:20:15 10/05/19 22 10/04/2021 COMPR EHENS MAYDA METAB OLIC PANEL albumin 4.1 g/dL 3.4-5. 0 Not Available [facility] (Lab) [address] [place], [address], 10/04/2021 14:20:15 10/05/19 22 10/04/2021 COMPR EHENS MAYDA METAB OLIC PANEL globulin 2.8 g/dL 2.6-4. 2 Not Available [facility] (Lab) [address] [place], [address], 10/04/2021 14:20:15 10/05/19 22 10/04/2021 COMPR EHENS MAYDA METAB OLIC PANEL A/G ratio 1.5 ratio 1.0-2. 0 Not Available [facility] (Lab) [address] [place], [address], 10/04/2021 14:20:15 10/05/19 22 10/04/2021 CBC/C OMPLE TE BLD COUNT W/DIF F white blood cells 3.4 x10'3 /uL 4.2-10 .8 low Not Available [facility] (Lab) [address] [place], [address], 10/04/2021 13:56:21 10/05/19 22 10/04/2021 CBC/C OMPLE TE BLD COUNT W/DIF F red blood cells 4.75 x10'6 /uL 3.80-5 .20 Not Available [facility] (Lab) [address] [place], [address], 10/04/2021 13:56:21 10/05/19 22 10/04/2021 CBC/C OMPLE TE BLD COUNT W/DIF F hemoglobin 13.8 g/dL 12.0-1 5.6 Not Available [facility] (Lab) [address] [place], [address], 10/04/2021 13:56:21 10/05/19 22 10/04/2021 CBC/C OMPLE TE BLD COUNT W/DIF F hematocrit 42.8 % 35.7-4 5.7 Not Available [facility] (Lab) [address] [place], [address], 10/04/2021 13:56:21 10/05/19 22 10/04/2021 CBC/C OMPLE TE BLD COUNT W/DIF F mean red cell volume 90.1 fL 82.0-9 9.0 Not Available [facility] (Lab) [address] [place], [address], 10/04/2021 13:56:21 10/05/19 22 10/04/2021 CBC/C OMPLE TE BLD COUNT W/DIF F mean red cell hemoglobin 29.1 pg 27.0-3 3.0 Not Available [facility] (Lab) [address] [place], [address], 10/04/2021 13:56:21 10/05/19 22 10/04/2021 CBC/C OMPLE TE BLD COUNT W/DIF F mean RBC HGB concentratio n 32.2 g/dL 31.0-3 6.0 Not Available [facility] (Lab) [address] [place], [address], 10/04/2021 13:56:21 10/05/19 22 10/04/2021 CBC/C OMPLE TE BLD COUNT W/DIF F red cell distribution width 13.2 % 11.8-1 5.5 Not Available [facility] (Lab) [address] [place], [address], 10/04/2021 13:56:21 10/05/19 22 10/04/2021 CBC/C OMPLE TE BLD COUNT W/DIF F platelets 171 x10'3 /uL 150-40 0 Not Available [facility] (Lab) [address] [place], [address], 10/04/2021 13:56:21 10/05/19 22 10/04/2021 CBC/C OMPLE TE BLD COUNT W/DIF F mean platelet volume 10.5 fL 9.0-12 .4 Not Available [facility] (Lab) [address] [place], [address], 10/04/2021 13:56:21 10/05/19 22 10/04/2021 CBC/C OMPLE TE BLD COUNT W/DIF F neutrophils 42.0 % 39.0-7 2.0 Not Available [facility] (Lab) [address] [place], [address], 10/04/2021 13:56:21 10/05/19 22 10/04/2021 CBC/C OMPLE TE BLD COUNT W/DIF F lymphocytes 41.3 % 16.0-4 7.0 Not Available [facility] (Lab) [address] [place], [address], 10/04/2021 13:56:21 10/05/19 22 10/04/2021 CBC/C OMPLE TE BLD COUNT W/DIF F monocytes 10.8 % 5.0-12 .0 Not Available [facility] (Lab) [address] [place], [address], 10/04/2021 13:56:21 10/05/19 22 10/04/2021 CBC/C OMPLE TE BLD COUNT W/DIF F eosinophils 4.7 % 1.0-7. 0 Not Available [facility] (Lab) [address] [place], [address], 10/04/2021 13:56:21 10/05/19 22 10/04/2021 CBC/C OMPLE TE BLD COUNT W/DIF F basophils 0.9 % 0.0-2. 0 Not Available [facility] (Lab) [address] [place], [address], 10/04/2021 13:56:21 10/05/19 22 10/04/2021 CBC/C OMPLE TE BLD COUNT W/DIF F immature granulocytes 0.3 % 0.00-0 .50 Not Available [facility] (Lab) [address] [place], [address], 10/04/2021 13:56:21 10/05/19 22 10/04/2021 CBC/C OMPLE TE BLD COUNT W/DIF F neutrophils, absolute count 1.45 x10'3 /uL 1.5-8. 0 low Not Available [facility] (Lab) [address] [place], [address], 10/04/2021 13:56:21 10/05/19 22 10/04/2021 CBC/C OMPLE TE BLD COUNT W/DIF F lymphocytes, absolute count 1.42 x10'3 /uL 1.07-3 .43 Not Available [facility] (Lab) [address] [place], [address], 10/04/2021 13:56:21 10/05/19 22 10/04/2021 CBC/C OMPLE TE BLD COUNT W/DIF F monocytes, absolute count 0.37 x10'3 /uL 0.29-0 .99 Not Available [facility] (Lab) [address] [place], [address], 10/04/2021 13:56:21 10/05/19 22 10/04/2021 CBC/C OMPLE TE BLD COUNT W/DIF F eosinophils, absolute count 0.16 x10'3 /uL 0.02-0 .53 Not Available [facility] (Lab) [address] [place], [address], 10/04/2021 13:56:21 10/05/19 22 10/04/2021 CBC/C OMPLE TE BLD COUNT W/DIF F basophils, absolute count 0.03 x10'3 /uL 0.01-0 .08 Not Available [facility] (Lab) [address] [place], [address], 10/04/2021 13:56:21 10/05/19 22 10/04/2021 CBC/C OMPLE TE BLD COUNT W/DIF F immature granulocytes ,absolute 0.01 x10'3 /uL 0.00-0 .05 Not Available [facility] (Lab) [address] [place], [address], 10/04/2021 13:56:21 10/05/19 22 10/04/2021 CBC/C OMPLE TE BLD COUNT W/DIF F nucleated red blood cells 0.0 % -0 Not Available [facility] (Lab) [address] [place], [address], 10/04/2021 13:56:21 10/05/19 22 10/04/2021 CBC/C OMPLE TE BLD COUNT W/DIF F NRBC# 0.00 x10'3 /uL Not Available [facility] (Lab) [address] [place], [address], 10/04/2021 13:56:21 01/26/20 22 01/31/2022 MISCE LLANE OUS TEST misc test see commen t SENT TO REFER ENCE LAB; SEE SEPAR ATE REPOR T Not Available [facility] (Lab) [address] [place], [address], 01/31/2022 09:47:27 01/26/20 22 01/25/2022 HEMOG LOBIN A1C HA1C 5.3 % 4.0-6. 0 Diabe geetha Scree philipp Crite monae: <5.7% Consi stent with absen ce of diabe geetha 5.7-6 .4% Consi stent with incre ased risk for diabe geetha (pred iabet es) >OR=6 .5% Consi stent with diabe geetha REFER ENCE: Diabe geetha Care 2015, 39(Avery ppl.1 ):s13 -s22 Not Available [facility] (Lab) [address] [place], [address], 01/25/2022 14:43:43 01/26/20 22 01/25/2022 TSH thyroid-stim ulating hormone 5.260 uIU/m L 0.465- 4.680 high Not Available [facility] (Lab) [address] [place], [address], 01/25/2022 12:07:14 01/26/20 22 01/25/2022 T3 FREE free T3 3.0 pg/mL 2.77-5 .27 Not Available [facility] (Lab) [address] [place], [address], 01/25/2022 11:51:13 01/26/20 22 01/25/2022 T4 FREE free T4 1.39 NG/dL 0.78-2 .19 Not Available [facility] (Lab) [address] [place], [address], 01/25/2022 11:51:09 01/26/20 22 01/25/2022 COMPR EHENS MAYDA METAB OLIC PANEL aspartate aminotransfe rase 26 U/L 15-37 Not Available [facility] (Lab) [address] [place], [address], 01/25/2022 11:50:00 01/26/20 22 01/25/2022 COMPR EHENS MAYDA METAB OLIC PANEL bilirubin, total 0.80 mg/dL 0.20-1 .30 Not Available [facility] (Lab) [address] [place], [address], 01/25/2022 11:50:00 01/26/20 22 01/25/2022 COMPR EHENS MAYDA METAB OLIC PANEL calcium 9.5 mg/dL 8.4-10 .2 Not Available [facility] (Lab) [address] [place], [address], 01/25/2022 11:50:00 01/26/20 22 01/25/2022 COMPR EHENS MAYDA METAB OLIC PANEL total protein 7.2 g/dL 6.3-8. 2 Not Available [facility] (Lab) [address] [place], [address], 01/25/2022 11:50:00 01/26/20 22 01/25/2022 COMPR EHENS MAYDA METAB OLIC PANEL albumin 4.2 g/dL 3.4-5. 0 Not Available [facility] (Lab) [address] [facility], [address], 01/25/2022 11:50:00 01/26/20 22 01/25/2022 COMPR EHENS MAYDA METAB OLIC PANEL globulin 3.0 g/dL 2.6-4. 2 Not Available [facility] (Lab) [address] [place], [address], 01/25/2022 11:50:00 01/26/20 22 01/25/2022 COMPR EHENS MAYDA METAB OLIC PANEL A/G ratio 1.4 ratio 1.0-2. 0 Not Available [facility] (Lab) [address] [place], [address], 01/25/2022 11:50:00 01/26/20 22 01/25/2022 COMPR EHENS MAYDA METAB OLIC PANEL sodium 140 mmol/ L 137-14 5 Not Available [facility] (Lab) [address] [place], [address], 01/25/2022 11:50:00 01/26/20 22 01/25/2022 COMPR EHENS MAYDA METAB OLIC PANEL potassium 4.4 mmol/ L 3.5-5. 1 Not Available [facility] (Lab) [address] [place], [address], 01/25/2022 11:50:00 01/26/20 22 01/25/2022 COMPR EHENS MAYDA METAB OLIC PANEL chloride 104 mmol/ L 98-107 Not Available [facility] (Lab) [address] [place], [address], 01/25/2022 11:50:00 01/26/20 22 01/25/2022 COMPR EHENS MAYDA METAB OLIC PANEL carbon dioxide 29 mmol/ L 22-30 Not Available [facility] (Lab) [address] [place], [address], 01/25/2022 11:50:00 01/26/20 22 01/25/2022 COMPR EHENS MAYDA METAB OLIC PANEL anion gap 11.4 mmol/ L 14-22 low Not Available [facility] (Lab) [address] [place], [address], 01/25/2022 11:50:00 01/26/20 22 01/25/2022 COMPR EHENS MAYDA METAB OLIC PANEL glucose 92 mg/dL 70-99 Not Available [facility] (Lab) [address] [place], [address], 01/25/2022 11:50:00 01/26/20 22 01/25/2022 COMPR EHENS MAYDA METAB OLIC PANEL BUN 10 mg/dL 8-19 Not Available [facility] (Lab) [address] [place], [address], 01/25/2022 11:50:00 01/26/20 22 01/25/2022 COMPR EHENS MAYDA METAB OLIC PANEL creatinine 0.74 mg/dL 0.66-1 .25 Not Available [facility] (Lab) [address] [place], [address], 01/25/2022 11:50:00 01/26/20 22 01/25/2022 COMPR EHENS MAYDA METAB OLIC PANEL GFR >60 Refer ence Range : [place] GFR Healt hy Adult : >60 [...] calcu lator is avail able on the [facility] websi te: https ://adolfo w.javier hahn.o rg/pr ofess ional s/kdo qi/gf r_cal culat or Not Available [facility] (Lab) [address] [place], [address], 01/25/2022 11:50:00 01/26/20 22 01/25/2022 COMPR EHENS MAYDA METAB OLIC PANEL alkaline phosphatase 84 U/L 38-126 Not Available [facility] (Lab) [address] [place], [address], 01/25/2022 11:50:00 01/26/20 22 01/25/2022 COMPR EHENS MAYDA METAB OLIC PANEL alanine aminotransfe rase 19 U/L 0-35 Not Available [facility] (Lab) [address] [place], [address], 01/25/2022 11:50:00 09/02/19 23 09/01/2022 US, bladd er No observ ation record ed. [email or web address] [facility] [place] [address] [facility] [address], [place], [address], 09/08/2022 08:27:41 Result Notes None recorded. Problems Name Problem SNOMED Code Status Onset Date Resolution Date Notes Provider Name and Address Organization Details Recorded Time Dyspnea 025146111 Active Not Available [facility] 3 18:20:43 Vitamin D deficiency 12955068 Active 2021 Not Available [facility] 3 18:20:43 Hypothyroidis m 09626775 Active 2021 Not Available [facility] 3 18:20:43 Pulmonary embolism 17375398 Active Not Available [facility] 3 18:20:44 Prediabetes 186675111 Active 2021 Not Available [facility] 3 18:20:44 Obstructive sleep apnea syndrome 60930301 Active Not Available [facility] 3 18:20:44 Urinary incontinence 076035455 Active 2022 Marilyn Coronado MA null, [facility] [employer] 10:49:04 Problem Notes None recorded. Procedures Surgical History Date Name Laterality Status Provider Name and Address Organization Details Recorded Time 11/11/19 Cystoscopy (female) completed Andrzej Ayala MD [address] [facility], [facility] [address], [place], [address], [facility] 11/10/2022 10:44:05 06/24/19 Colonoscopy completed Not Available [facility] 05/19/19 18:20:10 thyroidectomy completed Not Available [facility] 05/18/2022 18:20:10 Imaging Results Imaging Date Name Status LastModified by Organiz ation Details LastModified Time 09/01/2022 US, bladder completed [email or web address] [facility] [place] [address] [facility] [address], [place], [address], 09/08/2022 08:27:41 Procedure Notes None recorded. Medical Equipment None Reported. Allergies Allergen ID Allergen Name Allergen Category Reaction Reaction Severity Criticality Documentation Date Start Date Code Code System Note Provider Name and Address Organization Details Recorded Time 73599 codeine medicatio n vomiting Not available Not available 05/18/2022 2670 RxNorm Not Available [facility] 3 18:22:18 Medications Name Sig Start Date [...] and Address Organization Details Last Updated DateTime 2 59.5 kg/m2 160.02 cm 100 % 100 % 84 /min 98 [degF] 189799. 04 g 150 mm[Hg] 100 mm[Hg] Not Available [facility] 3 18:20:15 Date Recorded Body height Heart rate Body temperature Oxygen saturation Oxygen saturation in Arterial blood by Pulse oximetry Systolic blood pressure Diastolic blood pressure Provider Name and Address Organization Details Last Updated DateTime 3 167.64 cm 80 /min 98.7 [degF] 96 % 96 % 173 mm[Hg] 105 mm[Hg] Marilyn Coronado MA [facility] 3 10:44:52 Date Recorded Body weight Provider Name an d Address Organization Details Last Updated DateTime 09/01/2022 049084.38 g Sal Gomez Jocelyn [facility] 09/01/2022 10:47:10 Date Recorded Body height Provider Name an d Address Organization Details Last Updated DateTime 11/10/2022 167.64 cm Marilyn Coronado MA [employer] 11/10/2022 10:05:31 Social History Question Answer Notes LastModified by Organizat ion Details LastModified Time Tobacco Smoking Status Former Smoker Quit 5 yrs ago Not Available [facility] 05/18/2022 18:20:04 What Is Your Level Of Alcohol Consumption? None [id number] Information not available 05/18/2022 What Is Your Level Of Caffeine Consumption? 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 1-5yearssince lastcigarette Information not available 09/01/2022 What Is Your Relationship Status? [id number] Information not available 05/18/2022 Do You Use [...] SNOMED-CT Code Diagnosis ICD10 Code Diagnosis Note [id number] _ATHENA_M IGRATION_ DEFAULT_1 _1 , 07/08/2021 00:00:00 07/08/2021 09:45:34 [id number] [facility] [address] [place] [address] 10/12/2021 00:00:00 10/12/2021 10:08:29 [id number] Andrzej Ayala MD [facility] [address] [place] [address] 09/01/2022 10:09:56 09/01/2022 11:16:12 Urinary incontinence [id number] R32 Patient given informatio n on urinary incontinen ce and treatment. Will proceed with testing. cysto and Urodynamic s. [id number] Andrzej Ayala MD [facility] [address] [place] [id number] 11/10/2022 09:53:30 11/10/2022 10:46:00 Urinary incontinence [id number] R32 findings c/w OABtrial of Mirabegron .follow up Health Concerns Section Related Observation LastModified by Organization Detai ls LastModified Time None Recorded Concern Status LastModified by Organization Details LastModified Time None Recorded Advance Directives Directive None Recorded Payers Encounter Date Sequence Insurance Name Policy Number Policy Vivas Covered Member ID Vivas Member ID Guarantor Name 09/01/2022 1 [facility] (MEDICARE REPLACEMENT/A DVANTAGE - HMO) [id number] Nory Eleno [id number] Nory Johansen 11/10/2022 1 [facility] (MEDICARE REPLACEMENT/A DVANTAGE - HMO) [id number] Nory Johansen [id number] Nory Johansen Notes Date Note Type Note Provider Name and Address Organization Details Recorded Time 09/01/2022 text/html 61 yo female wit h urinary incontinence both stress and urge. She wears depends. She has one daughter born vaginally. No retention, recurrent uti's or kidney problems. Has multiple medical problems with morbid obesity, DM, recurrent PE s, hypothyroid, lung disease. Andrzej Ayala MD [address] [place] [address], [facility] [address], [place], [address], [facility] 09/01/2022 11:14:56 OBGyn Episode No OBEpisode recorded.
--- OUTSIDE RECORDS SUMMARY | 2024-06-20 08:11 | XMS_ITS | Referral Summary ---
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
--- OUTSIDE RECORDS SUMMARY | 2024-06-20 08:12 | XMS_ITS | Clinical Summary ---
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
[2024-06-20 08:43] LABS: Estimated Glomerular Filt Rate > 60
== END 2024-06-20 08:01 | disposition home or self-care (01) ==
PROVIDERS: PCP Family Medicine; Visit Provider Internal Medicine Cardiovascular Disease
DX: I71.21 Aneurysm of the ascending aorta, without rupture (principal); K76.0 Fatty (change of) liver, not elsewhere classified; N30.90 Cystitis, unspecified without hematuria; J92.9 Pleural plaque without asbestos
CPT/HCPCS: 71275; 74174; Q9967

== ENCOUNTER 2024-08-09 14:37 | Outpatient (CLI) | payer MEDICARE, SELFPAY ==
--- NOTE | ~2024-08-09 | US_ITS ---
EXAMINATION: US pelvic complete w TV INDICATION: Pelvic swelling Comparison:No prior studies for comparison. TECHNIQUE: Multiple transabdominal and endovaginal sonographic images of the pelvis performed. FINDINGS: The uterus measures 4.8 x 4.2 x 3.3 cm. The endometrial complex measures 3 mm. The right ovary is not visualized. Left ovary measures 5.4 x 3.6 x 2.6 cm and contains a large septat ed cyst measuring 5.4 x 2.8 x 2.3 cm. There is no free fluid in the pelvis. There are no abnormal ma sses seen on either side. IMPRESSION: 1. Large septated left ovarian cyst measuring 5.4 cm. Differential diagnosis includes functional cyst s, paraovarian cyst and ovarian malignancy. Reviewed, dictated and finalized at location A. IMPRESSION: 1. Large septated left ovarian cyst measuring 5.4 cm. Differential diagnosis in cludes functional cysts, paraovarian cyst and ovarian malignancy.
--- OUTSIDE RECORDS SUMMARY | 2024-08-09 14:42 | XMS_ITS | Referral Summary ---
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
--- OUTSIDE RECORDS SUMMARY | 2024-08-09 14:42 | XMS_ITS | Data Portability ---
Author Organization [facility] Address [address] [facility] [place] [address] Care Team Providers Care Grocery Sacker Name Role Phone BIRGIT JEFFERSON Family Medicine Unavailable Assessment No assessment recorded. Plan of Treatment Reminders Order Date Submit Date Provider Last Modified By Organization Details Last Modified Time Details Appointments ANY 15 2024 08:30A M BIRGIT JEFFERSON MD Not available Not available Not available Lab urinalys is, dipstick 2024 025 [email or web address] In-Office Order, Internal Use Only DO Not Attach Compendium DO Not Attach Compendium, Do Not Delete/merge, [id number] 07/19/2024 12:43:03 HbA1c (hemoglo bin A1c), blood 2023 024 [facility], [address] [facility], [facility], [place], [address], 03/02/2024 10:36:54 albumin/ creatini ne, mass ratio, urine 2023 024 [facility], [address] [facility] [address], [place], [address], 03/02/2024 10:36:49 CMP, serum or plasma 2023 024 [facility], [address] [facility] [address], [place], [address], 03/02/2024 10:36:51 urinalys is, dipstick 2023 024 [email or web address] In-Office Order, Internal Use Only DO Not Attach Compendium DO Not Attach Compendium, Do Not Delete/merge, [id number] 03/01/2024 09:53:37 lipid panel, serum 2023 024 [facility], [address] [place] [address] 2, [place], [address], 03/02/2024 10:36:50 TSH, ultra-se nsitive, serum 2023 024 [facility], [address] [place] [address] 2, [place], [address], 03/02/2024 10:36:52 Hepatiti s C IgG Ab, qual, serum 2023 024 [facility], [address] [place] [address] 2, [place], [address], 04/19/2024 09:40:06 influenz a virus A + B + SARS-CoV -2 (COVID19 ) Ag panel, rapid IA, upper respirat ory specimen 2023 024 CHASSELL In-Office Order, Internal Use Only DO Not Attach Compendium DO Not Attach Compendium, Do Not Delete/merge, [id number] 07/14/2023 12:46:22 Referral None recorded . Procedures None recorded . Surgeries None recorded . Imaging US, pelvis, complete - CT scan showed possible uterine fibroid vs left ovarian mass, about 3.9 cm in diameter 2024 025 [facility] (Imaging), [address] [place] [address] [address], [place], [address], 08/02/2024 04:23:55 LDCT, chest, for lung cancer screenin g - former smoker with about 39-40 pack-yea rs; quit about 7 years ago 2023 024 [facility], [address] [place] [address] [address], [place], [address], 05/22/2024 02:47:47 Medication Orders estradio l 0.01% (0.1 mg/gram) vaginal cream 2024 025 [facility][id number], [address] [place], [place], [id number], 07/19/2024 13:25:31 losartan 50 mg tablet 2023 024 [facility] #73426, [address] [place], [place], [id number], 03/01/2024 09:53:43 tramadol 50 mg tablet 2023 024 [facility] #58946, [address] [place], [place], [id number], 03/01/2024 09:53:46 ezetimib e 10 mg tablet 2023 024 [facility] #63616, [address] [place], [place], [id number], 03/01/2024 09:53:45 atorvast atin 10 mg tablet 2023 025 [facility] #41885, [address] [place], [place], [id number], 05/30/2024 10:10:30 levothyr oxine 137 mcg tablet 2023 024 [facility] #45390, [address] [place], [place], [id number], 03/01/2024 09:53:43 docusate sodium 100 mg capsule 2023 024 [facility] #24345, [address] [place], [place], [id number], 08/31/2023 08:54:19 tramadol 50 mg tablet 2023 024 [facility] #01459, [address] [place], [place], [id number], 08/31/2023 08:54:18 amoxicil mirella 875 mg-potas sium clavulan ate 125 mg tablet 2023 024 [facility] #92163, [address] [place], [place], [id number], 08/31/2023 08:29:23 fluticas one propiona te 50 mcg/actu ation nasal spray,bunn spension 2023 024 [id number], [address] [place], [place], [id number], 07/14/2023 13:22:42 Patient TargetsNo targets recorded. Patient Instructions Encounter Date Encounter Id Patient Instructions Last Modified By Organization Details Last Modified Time 07/14/2023 [id number] upper respirator y infection (cold): care instructions [email or web address] Not available 07/14/2023 12:19:37 08/31/2023 [id number] A healthy lifestyle: care instructions [email or web address] Not available 08/31/2023 16:31:42 03/01/2024 [id number] advance care planning: care instructions Not available 03/01/2024 09:53:37 preventing falls : care instructions [email or web address] Not available 03/01/2024 09:53:36 A healthy lifestyle: care instructions [email or web address] Not available 03/01/2024 09:53:37 AD8 Dementia Screening Interview [email or web address] Not available 03/01/2024 09:53:37 eating healthy foods: care instructions [email or web address] Not available 03/01/2024 09:53:36 Reason for Referral None Reported. Results Created Date Observation Date Name Description Value Unit Range Abnormal Flag Note LastModifiedBy Organization Detail LastModifiedTime 07/14/19 24 07/14/2023 influ evangelina virus A + B + SARS- CoV-2 (COVI D19) Ag panel , rapid IA, upper respi rator y speci men Flu A negati ve Not Available In-Office Order Internal Use Only DO Not Attach Compendium DO Not Attach Compendium, Do Not Delete/merge, [id number] 07/14/2023 12:19:31 07/14/19 24 07/14/2023 influ evangelina virus A + B + SARS- CoV-2 (COVI D19) Ag panel , rapid IA, upper respi rator y speci men Flu B negati ve Not Available In-Office Order Internal Use Only DO Not Attach Compendium DO Not Attach Compendium, Do Not Delete/merge, [id number] 07/14/2023 12:19:31 07/14/19 24 07/14/2023 influ evangelina virus A + B + SARS- CoV-2 (COVI D19) Ag panel , rapid IA, upper respi rator y speci men Rapid SARS CoV 2 Ag, QL IA, respiratory specimen negati ve Not Available In-Office Order Internal Use Only DO Not Attach Compendium DO Not Attach Compendium, Do Not Delete/merge, [id number] 07/14/2023 12:19:31 03/01/20 24 03/02/2024 ALBUM IN/CR EATIN INE RATIO ,URIN E creatinine, urine 13.8 mg/dL notest ab. Not Available [facility] ([facility]) [address] [facility], [place], [address], 03/02/2024 10:36:48 03/01/20 24 03/02/2024 ALBUM IN/CR EATIN INE RATIO ,URIN E albumin, urine 10.9 ug/mL notest ab. Not Available [facility] ([facility]) [address] [facility], [place], [address], 03/02/2024 10:36:48 03/01/20 24 03/02/2024 ALBUM IN/CR EATIN INE RATIO ,URIN E alb/creat ratio 79 mg/g_ creat 0-29 above high normal Fay l: 0 - 29 Moder ately incre ased: 30 - 300 Sever dayana incre ased: >300 Not Available [facility] ([facility]) [address] [facility], [place], [address], 03/02/2024 10:36:48 03/01/20 24 03/02/2024 LIPID PANEL cholesterol, total 180 mg/dL 100-19 9 Not Available [facility] ([facility]) [address] [place], [address], 03/02/2024 10:36:50 03/01/20 24 03/02/2024 LIPID PANEL triglyceride s 141 mg/dL 0-149 Not Available [facility] ([facility]) [address] [place], [address], 03/02/2024 10:36:50 03/01/20 24 03/02/2024 LIPID PANEL HDL cholesterol 48 mg/dL >39 Not Available [facility] ([facility]) [address] [place], [address], 03/02/2024 10:36:50 03/01/20 24 03/02/2024 LIPID PANEL VLDL cholesterol alvin 25 mg/dL 5-40 Not Available [facility] ([facility]) [address] [place], [address], 03/02/2024 10:36:50 03/01/20 24 03/02/2024 LIPID PANEL LDL chol calc ([facility]) 107 mg/dL 0-99 above high normal Not Available [facility] ([facility]) [address] [place], [address], 03/02/2024 10:36:50 03/01/20 24 03/02/2024 COMP. METAB OLIC PANEL (14) glucose 91 mg/dL 70-99 Not Available [facility] ([facility]) [address] [place], [address], 03/02/2024 10:36:51 03/01/20 24 03/02/2024 COMP. METAB OLIC PANEL (14) BUN 13 mg/dL 8-27 Not Available [facility] ([facility]) [address] [place], [address], 03/02/2024 10:36:51 03/01/20 24 03/02/2024 COMP. METAB OLIC PANEL (14) creatinine 0.80 mg/dL 0.57-1 .00 Not Available [facility] ([facility]) [address] [facility], [place], [address], 03/02/2024 10:36:51 03/01/20 24 03/02/2024 COMP. METAB OLIC PANEL (14) eGFR 83 mL/mi n/1.7 3 >59 Not Available [facility] ([facility]) [address] [facility], [place], [address], 03/02/2024 10:36:51 03/01/20 24 03/02/2024 COMP. METAB OLIC PANEL (14) BUN/creatini ne ratio 16 12-28 Not Available [facility] ([facility]) [address] [facility], [place], [address], 03/02/2024 10:36:51 03/01/20 24 03/02/2024 COMP. METAB OLIC PANEL (14) sodium 142 mmol/ L 134-14 4 Not Available [facility] ([facility]) [address] [facility], [place], [address], 03/02/2024 10:36:51 03/01/20 24 03/02/2024 COMP. METAB OLIC PANEL (14) potassium 4.6 mmol/ L 3.5-5. 2 Not Available [facility] ([facility]) [address] [facility], [place], [address], 03/02/2024 10:36:51 03/01/20 24 03/02/2024 COMP. METAB OLIC PANEL (14) chloride 103 mmol/ L 96-106 Not Available [facility] ([facility]) [address] [facility], [place], [address], 03/02/2024 10:36:51 03/01/20 24 03/02/2024 COMP. METAB OLIC PANEL (14) carbon dioxide, total 25 mmol/ L 20-29 Not Available [facility] ([facility]) [address] [facility], [place], [address], 03/02/2024 10:36:51 03/01/20 24 03/02/2024 COMP. METAB OLIC PANEL (14) calcium 9.6 mg/dL 8.7-10 .3 Not Available [facility] ([facility]) [address] [facility], [place], [address], 03/02/2024 10:36:51 03/01/20 24 03/02/2024 COMP. METAB OLIC PANEL (14) protein, total 7.1 g/dL 6.0-8. 5 Not Available [facility] ([facility]) [address] [facility], [place], [address], 03/02/2024 10:36:51 03/01/20 24 03/02/2024 COMP. METAB OLIC PANEL (14) albumin 4.4 g/dL 3.9-4. 9 Not Available [facility] ([facility]) [address] [place], [address], 03/02/2024 10:36:51 03/01/20 24 03/02/2024 COMP. METAB OLIC PANEL (14) globulin, total 2.7 g/dL 1.5-4. 5 Not Available [facility] ([facility]) [address] [facility], [place], [address], 03/02/2024 10:36:51 03/01/20 24 03/02/2024 COMP. METAB OLIC PANEL (14) bilirubin, total 0.7 mg/dL 0.0-1. 2 Not Available [facility] ([facility]) [address] [facility], [place], [address], 03/02/2024 10:36:51 03/01/20 24 03/02/2024 COMP. METAB OLIC PANEL (14) alkaline phosphatase 91 IU/L 44-121 Not Available [facility]) [address] [facility], [place], [address], 03/02/2024 10:36:51 03/01/20 24 03/02/2024 COMP. METAB OLIC PANEL (14) AST (SGOT) 21 IU/L 0-40 Not Available [facility] ([facility]) [address] [facility], [place], [address], 03/02/2024 10:36:51 03/01/20 24 03/02/2024 COMP. METAB OLIC PANEL (14) ALT (SGPT) 20 IU/L 0-32 Not Available [facility] ([facility]) [address] [facility], [place], [address], 03/02/2024 10:36:51 03/01/20 24 03/02/2024 TSH RFX ON ABNOR MAL TO FREE T4 TSH 2.240 uIU/m L 0.450- 4.500 Not Available [facility] ([facility]) [address] [facility], [place], [address], 03/02/2024 10:36:52 03/01/20 24 03/02/2024 HEMOG LOBIN A1C hemoglobin A1C 5.9 % 4.8-5. 6 above high normal Predi abete s: 5.7 - 6.4 Diabe geetha: >6.4 Glyce rachid contr ol for adult s with diabe geetha: <7.0 Not Available [facility] ([facility]) [address] [facility], [place], [address], 03/02/2024 10:36:54 03/01/20 24 03/01/2024 urina lysis , dipst ick Leukocytes Negati ve Not Available In-Office Order Internal Use Only DO Not Attach Compendium DO Not Attach Compendium, Do Not Delete/merge, [id number] 03/01/2024 09:27:58 03/01/20 24 03/01/2024 urina lysis , dipst ick Nitrite negati ve Not Available In-Office Order Internal Use Only DO Not Attach Compendium DO Not Attach Compendium, Do Not Delete/merge, 03/01/2024 09:27:58 03/01/20 24 03/01/2024 urina lysis , dipst ick Urobilinogen .2 Not Available In-Of fice Order Internal Use Only DO Not Attach Compendium DO Not Attach Compendium, Do Not Delete/merge, 03/01/2024 09:27:58 03/01/20 24 03/01/2024 urina lysis , dipst ick Protein Negati ve Not Available In-Office Order Internal Use Only DO Not Attach Compendium DO Not Attach Compendium, Do Not Delete/merge, 03/01/2024 09:27:58 03/01/20 24 03/01/2024 urina lysis , dipst ick pH 6.0 Not Available In-Office Order Internal Use Only DO Not Attach Compendium DO Not Attach Compendium, Do Not Delete/merge, 03/01/2024 09:27:58 03/01/20 24 03/01/2024 urina lysis , dipst ick Blood Negati ve Not Available In-Office Order Internal Use Only DO Not Attach Compendium DO Not Attach Compendium, Do Not Delete/merge, 03/01/2024 09:27:58 03/01/20 24 03/01/2024 urina lysis , dipst ick Specific [place] 1.005 Not Available In-Off ice Order Internal Use Only DO Not Attach Compendium DO Not Attach Compendium, Do Not Delete/merge, 03/01/2024 09:27:58 03/01/20 24 03/01/2024 urina lysis , dipst ick Ketone Negati ve Not Available In-Office Order Internal Use Only DO Not Attach Compendium DO Not Attach Compendium, Do Not Delete/merge, 03/01/2024 09:27:58 03/01/20 24 03/01/2024 urina lysis , dipst ick Bilirubin Negati ve Not Available In-Office Order Internal Use Only DO Not Attach Compendium DO Not Attach Compendium, Do Not Delete/merge, 03/01/2024 09:27:58 03/01/20 24 03/01/2024 urina lysis , dipst ick Glucose Negati ve Not Available In-Office Order Internal Use Only DO Not Attach Compendium DO Not Attach Compendium, Do Not Delete/merge, [id number] 03/01/2024 09:27:58 03/01/20 24 03/01/2024 urina lysis , dipst ick Appearance Clear Not Available In-Offi ce Order Internal Use Only DO Not Attach Compendium DO Not Attach Compendium, Do Not Delete/merge, [id number] 03/01/2024 09:27:58 03/01/20 24 03/01/2024 urina lysis , dipst ick Color Yellow Not Available In-Office Order Internal Use Only DO Not Attach Compendium DO Not Attach Compendium, Do Not Delete/merge, [id number] 03/01/2024 09:27:58 04/18/19 25 04/19/2024 INTER PRETA TION: interpretati on: Commen t Not infec bertram with HCV unles s early or acute infec tion is suspe cted (whic h may be delay ed in an immun ocomp romis ed indiv idual ), or other evide nce exist s to indic ate HCV infec tion. Not Available [facility] ([facility]) [address] [facility], [place], [address], 04/19/2024 09:40:05 04/18/19 25 04/19/2024 HCV ANTIB LILIAN RFX TO QUANT PCR HCV Ab NON REACTI VE nonrea ctive Not Available [facility] ([facility]) [address] [facility], [place], [address], 04/19/2024 09:40:06 07/20/19 25 07/19/2024 urina lysis , dipst ick Leukocytes Negati ve Not Available In-Office Order Internal Use Only DO Not Attach Compendium DO Not Attach Compendium, Do Not Delete/merge, [id number] 07/19/2024 12:30:53 07/20/19 25 07/19/2024 urina lysis , dipst ick Nitrite negati ve Not Available In-Office Order Internal Use Only DO Not Attach Compendium DO Not Attach Compendium, Do Not Delete/merge, 07/19/2024 12:30:53 07/20/1907/19/2024 urina lysis , dipst ick Urobilinogen .2 Not Available In-Of fice Order Internal Use Only DO Not Attach Compendium DO Not Attach Compendium, Do Not Delete/merge, 07/19/2024 12:30:53 07/20/19 25 07/19/2024 urina lysis , dipst ick Protein Negati ve Not Available In-Office Order Internal Use Only DO Not Attach Compendium DO Not Attach Compendium, Do Not Delete/merge, 07/19/2024 12:30:53 07/20/1907/19/2024 urina lysis , dipst ick pH 7.0 Not Available In-Office Order Internal Use Only DO Not Attach Compendium DO Not Attach Compendium, Do Not Delete/merge, 07/19/2024 12:30:53 07/20/19 25 07/19/2024 urina lysis , dipst ick Blood Negati ve Not Available In-Office Order Internal Use Only DO Not Attach Compendium DO Not Attach Compendium, Do Not Delete/merge, 07/19/2024 12:30:53 07/20/19 25 07/19/2024 urina lysis , dipst ick Specific [place] 1.005 Not Available In-Off ice Order Internal Use Only DO Not Attach Compendium DO Not Attach Compendium, Do Not Delete/merge, 07/19/2024 12:30:53 07/20/19 25 07/19/2024 urina lysis , dipst ick Ketone Negati ve Not Available In-Office Order Internal Use Only DO Not Attach Compendium DO Not Attach Compendium, Do Not Delete/merge, 07/19/2024 12:30:53 07/20/19 25 07/19/2024 urina lysis , dipst ick Bilirubin Negati ve Not Available In-Office Order Internal Use Only DO Not Attach Compendium DO Not Attach Compendium, Do Not Delete/merge, [id number] 07/19/2024 12:30:53 07/20/19 25 07/19/2024 urina lysis , dipst ick Glucose Negati ve Not Available In-Office Order Internal Use Only DO Not Attach Compendium DO Not Attach Compendium, Do Not Delete/merge, [id number] 07/19/2024 12:30:53 07/20/19 25 07/19/2024 urina lysis , dipst ick Appearance Clear Not Available In-Offi ce Order Internal Use Only DO Not Attach Compendium DO Not Attach Compendium, Do Not Delete/merge, [id number] 07/19/2024 12:30:53 07/20/19 25 07/19/2024 urina lysis , dipst ick Color Yellow Not Available In-Office Order Internal Use Only DO Not Attach Compendium DO Not Attach Compendium, Do Not Delete/merge, [id number] 07/19/2024 12:30:53 01/08/20 24 01/08/2024 MAMMO , scree philipp, digit al, bilat eral No observ ation record ed. [facility] [address] [place], [address], 01/08/2024 15:20:25 05/22/19 25 05/03/2024 LDCT, chest , for lung cance r raymundo segal No observ ation record ed. [facility] [address], [place], [address], 05/23/2024 09:42:47 06/21/19 25 06/20/2024 CT, angio gram, abdom en + pelvi s, w/ contr ast No observ ation record ed. [email or web address], [place], [address], 07/19/2024 12:17:20 Result Notes None recorded. Problems Name Problem SNOMED Code Status Onset Date Resolution Date Notes Provider Name and Address Organization Details Recorded Time Aneurysm of ascendin g aorta 795951358 Active 2017 4.0 cm in 2019 -> 4.4 cm in 2022 BIRGIT JEFFERSON MD Attn: Milena milligan[address] [facility], [place], [address], [place] [facility] 15:49:15 Acute follicul itis 415593566 Active 2017 Shellymaría elena Morocholroy [place] [facility] 10:06:36 Lethargy 023053739 Active 2017 Shelly Burton [place] [facility] 10:06:37 Eczema 88587947 Active 2017 Shelly [place] [facility] 10:06:37 Cellulit is of lower limb 477109221 Completed 201711/02/2022 BIRGIT JEFFERSON MD Attn: Milena milligan,[address] [facility], [place], [address], [place] [facility] 12:00:58 Acute sinusiti s 54472764 Active 2018 Shelly [place] [facility] 10:06:37 Screenin g for malignan t neoplasm of breast Completed 201804/21/2022 BIRGIT JEFFERSON MD Attn: Accountrebecca milligan,[address] [facility], [place], [address], [place] [facility] 13:19:24 Venous insuffic iency of leg 622059078 Active 2018 Shelly [place] [facility] 10:06:37 Acute urinary tract infectio n 665900673 Completed 201904/14/2022 BIRGIT JEFFERSON MD Attn: Milena g,[address] [facility], [place], [address], [place] [facility] 15:48:37 Leukopen ia 66876496 Active 2019 Shel[place] [facility] 10:06:37 Osteoart hritis of right knee joint 69665252907 9100 Active 2020 moderate see x-ray 05/20/2020 Shelly [place] [facility] 10:06:37 Increase d frequenc y of urinatio n 910678896 Active 2020 BIRGIT JEFFERSON MD Attn: Galorebecca milligan,[address] [facility], [place], [address], [place] [facility] 12:00:21 Ganglion of foot 592784460 Active 2021 Shel[place] [facility] 10:06:37 Thyroidi tis 48970768 Active 2021 [place] [facility] 10:06:36 Administ ration of diphther ia and tetanus vaccine Completed 202104/14/2022 BIRGIT JEFFERSON MD Attn: Milena milligan,[address] [facility], [place], [address], [place] [facility] 15:48:42 Essentia l hyperten morena 39937615 Active 2021 BIRGIT JEFFERSON MD Attn: Milena milligan,[address] [facility], [place], [address], [place] [facility] 15:49:30 Urgent desire to urinate 12510782 Active 2021 Deandre Fonseca PA-C Attn: Milena milligan,[address] [facility], [place], [address], [place] [facility] 12:49:58 Body mass index 40+ - severely obese 868064485 Active 2022 BIRGIT JEFFERSON MD Attn: Milena milligan,[address] [facility], [place], [address], [place] [facility] 12:00:25 Type 2 diabetes mellitus 59293011 Active 2022 BIRGIT JEFFERSON MD Attn: Milena milligan,[address] [facility], [place], [address], [place] [facility] 12:01:36 History of polyp of colon 826904163 Active 2023 BIRGIT JEFFERSON MD Attn: Accountrebecca milligan,[address] [facility], [place], [address], [place] [facility] 4 09:52:19 Hyperlip idemia 05158101 Active BIRGIT JEFFERSON MD Attn: Accountrebecca g,[address] [facility], [place], [address], [place] [facility] 12:01:17 Hyperten sive disorder 72962236 Active BIRGIT JEFFERSON MD Attn: Accountrebecca g,[address] [facility], [place], [address], [place] [facility] 15:49:33 Ankle pain 859553352 Active [place] [facility] 10:06:37 Arthriti s 5318270 Active [place] [facility] 10:06:36 Obesity 176578292 Active [place] [facility] 10:06:36 Disorder of vitamin B12 169131558 Active [place] [facility] 10:06:37 Ringing in ear 022826286 Active [place] [facility] 10:06:36 Allergic rhinitis 40468287 Active BIRGIT JEFFERSON MD Attn: Accountrebecca g,[address] [facility], [place], [address], [place] [facility] 15:48:39 Tobacco user 250646062 Completed 11/02/2022 quit April 16, 2015 BIRGIT JEFFERSON MD Attn: Accountrebecca g,[address] [facility], [place], [address], [place] [facility] 12:01:32 Hyperthy roidism 17478257 Completed 08/09/2016 Deandre Fonseca PA-C Attn: Accountrebecca g,[address] [facility], [place], [address], [place] [facility] 12:22:51 Disorder of vitamin D 997479092 Active [place] [facility] 10:06:37 Hypothyr oidism 73375984 Active thyroide ctomy in 1999. BIRGIT JEFFERSON MD Attn: Milena milligan,[address] [facility], [place], [address], [place] [facility] 12:00:48 Dysuria 81201288 Completed 11/02/2022 BIRGIT JEFFERSON MD Attn: Milena milligan,[address] [facility], [place], [address], [place] [facility] 12:01:12 Edema 087306894 Completed 04/14/2022 BIRGIT JEFFERSON MD Attn: Milena milligan,[address] [facility], [place], [address], [place] [facility] 15:49:26 Rheumato id arthriti s 26126917 Active BIRGIT JEFFERSON MD Attn: Milena milligan,[address] [facility], [place], [address], [place] [facility] 12:00:36 Dyspnea 310397515 Completed 11/02/2022 BIRGIT JEFFERSON MD Attn: Milena milligan,[address] [facility], [place], [address], [place] [facility] 12:01:09 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 [place] [facility] 10:06:37 Cellulit is of lower limb 078614834 Completed 11/02/2022 BIRGIT JEFFERSON MD Attn: Milena milligan,[address] [facility], [place], [address], [place] [facility] 12:00:55 Pulmonar y embolism 27791845 Active [place] [facility] 10:06:37 Deep venous thrombos is of lower extremit y 289936621 Active [place] [facility] 10:06:37 Edema of lower extremit y 987938114 Active [place] [facility] 10:06:37 Chronic obstruct gonzalez pulmonar y disease 48930001 Active [place] [facility] 10:06:37 Low back pain 885189832 Active 2016 Shel[place] [facility] 10:06:36 Administ ration of influenz a vaccine Completed 201604/14/2022 BIRGIT JEFFERSON MD Attn: Milena milligan,[address] [place], [address], [place] [facility] 3 15:48:33 Screenin g for malignan t neoplasm of colon Completed 201604/21/2022 BIRGIT JEFFERSON MD Attn: Milena milligan,[address] [facility], [place], [address], [place] [facility] 3 13:19:26 Problem Notes None recorded. Procedures Surgical History Date Name Laterality Status Provider Name and Address Organization Details Recorded Time 01/08/20 24 Date of Last Mammogram completed Nimo Mullen [place] 03/01/2024 09:04:57 01/11/20 23 colonoscopy completed Nimo Mullen [place] 03/01/2024 09:08:11 04/09/19 23 Date of Last Pap Smear completed Nimo Mullen [place] 03/01/2024 09:04:33 03/21/19 20 colonoscopy completed VANDANA Hogan - [facility] 04/18/2023 09:01:54 01/12/20 18 Endovenous laser vein addon completed Millie Solitario [place] 03/07/2018 09:51:03 Removal of thyroid completed VANDANA Naylor - [facility] 06/23/2014 14:56:15 Cholecystectomy [place] Katja Larson [place] 06/23/2014 14:56:15 Tubal Ligation completed Katja Larson [place] [facility] 06/23/2014 14:56:15 Imaging Results Imaging Date Name Status LastModified by Organiz ation Details LastModified Time 01/08/2024 MAMMO, screening, digital, bilateral completed [facility] [address] [facility], [place], [address], 01/08/2024 15:20:25 05/03/2024 LDCT, chest, for lung cancer screening completed [facility] [address], [place], [address], 05/23/2024 09:42:47 06/20/2024 CT, angiogram, abdomen + pelvis, w/ contrast completed [address], [place], [address], 07/19/2024 12:17:20 Procedure Notes None recorded. Medical Equipment None Reported. Allergies Allergen ID Allergen Name Allergen Category Reaction Reaction Severity Criticality Documentation Date Start Date Code Code System Note Provider Name and Address Organization Details Recorded Time 992228 metformin medicatio n diarrhea moderate Not available 10/29/2021 6809 RxNorm Nimo Mullen [place], [place] [facility] 3 15:49:35 41174 Effexor medicatio n Not available Not available Not available 06/23/2014 68017 2 RxNorm Katja Larson [place], [place] [facility] 5 14:49:02 59878 codeine medicatio n vomiting Not available Not available 06/23/2014 2670 RxNorm Katja Larson [place], [place] [facility] 5 14:49:02 Medications Name Sig Start Date Stop Date Status Note LastModified by Organization Details LastModified Time Prescript ion - Change one PO daily 05/09 completed Not Available Not Available Not Available losartan 50 mg tablet TAKE 1 TABLET BY MOUTH EVERY DAY IN THE MORNING active Not Available Not Available No t Available furosemid e 40 mg tablet Take 1 tablet(s ) every day by oral route in the morning for 10 days. 10/11/ 2019 05/04 /2021 completed Not Available Not Available Not Available metformin 500 mg tablet Take 1 tablet every day by oral route at dinner. 10/29 completed diarrhea , n/ Not Available Not Available Not Available levothyro xine 175 mcg tablet Take 1 tablet(s ) every day by oral route in the morning for 30 days. 08/23 completed overcont rolled Not Available Not Available Not Available levothyro xine 137 mcg tablet TAKE 1 TABLET BY MOUTH EVERY DAY IN THE MORNING active Not Available Not Available No t Available doxycycli ne hyclate 100 mg capsule Take 1 capsule twice a day by oral route after meals for 10 days. 11/29 completed Not Available Not Available Not Available sulfasala zine 500 mg tablet 03/28 completed Not Available Not Available Not Available albuterol sulfate 2.5 mg/3 mL (0.083 %) solution for nebulizat ion 07/09 completed Not Available Not Available Not Available atorvasta tin 10 mg tablet Take 1 tablet every day by oral route for 90 days, for high choleste rol. 05/30 completed gets Charley horses Not Available Not Available Not Available ibuprofen 800 mg tablet Take 1 tablet 3 times a day by oral route with meals for 30 days. active Not Available Not Available No t Available fluconazo le 150 mg tablet Take 1 tablet every 72 hours by oral route for 7 days. 07/21 completed Not Available Not Available Not Available hydrocodo ne 5 mg-acetam inophen 325 mg tablet active Not Available Not Available Not Available lovastati n 40 mg tablet 03/28 completed Not Available Not Available Not Available prednison e 5 mg tablet 07/09 completed Not Available Not Available Not Available Pyridium 200 mg tablet Take 1 tablet 3 times a day by oral route for 3 days. 03/22 completed Not Available Not Available Not Available clindamyc in HCl 150 mg capsule Take 1 capsule every 6 hours by oral route for 7 days. 05/09 completed Not Available Not Available Not Available leflunomi de 10 mg tablet Take 1 tablet every day by oral route. 03/07 completed increase d to 20 mg Not Available Not Available Not Available metronida zole 500 mg tablet Take 1 tablet twice a day by oral route for 7 days. 03/22 completed Not Available Not Available Not Available ciproflox acin 500 mg tablet Take 1 tablet every 12 hours by oral route for 10 days. 12/30 completed Not Available Not Available Not Available sulfameth oxazole 800 mg-trimet hoprim 160 mg tablet Take 1 tablet every 12 hours by oral route. 07/04 completed Not Available Not Available Not Available peg-elect rolyte solution 420 gram oral solution MIX AND DRINK 1/2 OF THE JUG AT 5PM ON 01/09. DRINK THE OTHER 1/2 OF THE JUG AT 5AM ON 01/10. 08/30 completed Not Available Not Available Not Available leflunomi de 20 mg tablet TAKE 1 TABLET BY MOUTH DAILY active Not Available Not Available No t Available tramadol 50 mg tablet TAKE 1 TABLET BY MOUTH TWICE DAILY active Not Available Not Available No t Available triamcino lone acetonide 0.1 % topical cream APPLY A THIN LAYER TO THE AFFECTED AREA(S) BY TOPICAL ROUTE 2 TIMES PER DAY active Not Available Not Available No t Available spironola ctone 25 mg tablet TAKE 1 TABLET BY MOUTH EVERY DAY active Not Available Not Available No t Available levothyro xine 25 mcg tablet Take 1 tablet(s ) every day by oral route in the morning for 30 days. 08/27 completed Not Available Not Available Not Available tetracycl ine 250 mg capsule Take 1 capsule every 6 hours by oral route after meals for 10 days. 11/29 completed Not Available Not Available Not Available Kenalog 40 mg/mL suspensio n for injection Take 40 mg by injectio n route. 03/28 completed Not Available Not Available Not Available potassium chloride ER 20 mEq tablet,ex tended release(p art/cryst ) TAKE ONE TABLET BY MOUTH EVERY DAY 11/29 completed Not Available Not Available Not Available methotrex ate sodium 2.5 mg tablet 07/09 completed Not Available Not Available Not Available levothyro xine 50 mcg tablet Take 1 tablet every day by oral route in the morning for 30 days. 03/28 completed Not Available Not Available Not Available pantopraz ole 40 mg tablet,de layed release TAKE 1 TABLET BY MOUTH EVERY DAY 03/07 completed Not Available Not Available Not Available triamcino lone acetonide 0.1 % topical ointment APPLY A THIN LAYER TO THE AFFECTED AREA(S) BY TOPICAL ROUTE 2 TIMES PER DAY 2021 active Not Available Not Available Not Avai lable warfarin 2 mg tablet Take 2 tablets every day by oral route in the morning for 30 days. active Not Available Not Available No t Available warfarin 5 mg tablet active Not Available Not Available Not Available levothyro xine 150 mcg tablet Take 1 tablet every day by oral route in the morning for 30 days. 10/29 completed changed to 137 Not Available Not Available Not Available Advair Diskus 250 mcg-50 mcg/dose powder for inhalatio n INHALE ONE DOSE BY MOUTH TWICE DAILY RINSE MOUTH 07/21 completed Not Available Not Available Not Available hydrochlo rothiazid e 12.5 mg capsule Take 1 capsule every day by oral route in the morning for 30 days. active Not Available Not Available No t Available docusate sodium 100 mg capsule TAKE 1 CAPSULE BY MOUTH TWICE DAILY NEEDED active Not Available Not Available No t Available diltiazem CD 120 mg capsule,e xtended release 24 hr TAKE 1 CAPSULE BY MOUTH DAILY active Not Available Not Available No t Available folic acid 1 mg tablet 07/09 completed Not Available Not Available Not Available monteluka st 10 mg tablet Take 1 tablet every day by oral route in the morning for 30 days. 07/04 completed Not Available Not Available Not Available levothyro xine 200 mcg tablet Take 1 tablet every day by oral route for 30 days. 09/11 completed overcont rolled , decrease d to 175 mcg.... Not Available Not Available Not Available bisacodyl 5 mg tablet,de layed release TAKE 6 TABLETS BY MOUTH AT 8AM ON 01/09 completed Not Available Not Available Not Available warfarin 1 mg tablet Take 1 tablet every day by oral route for 30 days. active Not Available Not Available No t Available hydroxych loroquine 200 mg tablet 07/09 completed Not Available Not Available Not Available levofloxa raphael 500 mg tablet Take 1 tablet every 24 hours by oral route for 10 days. 08/26 completed Not Available Not Available Not Available estradiol 0.01% (0.1 mg/gram) vaginal cream Insert 2g vaginall y every night for 14 nights, then insert 1g vaginall y twice weekly (M, Th) for maintena nce dose. 2024 active Not Available Not Available Not Avai lable losartan 50 mg-hydroc hlorothia zide 12.5 mg tablet Take 1 tablet(s ) every day by oral route in the morning for 30 days. active Not Available Not Available No t Available betametha sone dipropion ate 0.05 % topical ointment active Not Available Not Available Not Available Paxil 10 mg tablet Take 1 tablet every day by oral route. 2014 active Not Available Not Available Not Avai lable losartan 100 mg tablet Take 1 tablet every day by oral route in the morning for 30 days. 10/29 completed too strong Not Available Not Available Not Available fluticaso ne propionat e 50 mcg/actua tion nasal spray,deepika pension SHAKE LIQUID AND USE 1 SPRAY IN EACH NOSTRIL EVERY DAY active Not Available Not Available No t Available metformin ER 500 mg tablet,ex tended release 24 hr TAKE 1 TABLET BY MOUTH EVERY DAY AT DINNER 11/02 completed weaned off of metformi n with last A1c <6% Not Available Not Available Not Available naproxen 500 mg tablet active Not Available Not Available Not Available amoxicill in 875 mg-potass ium clavulana te 125 mg tablet TAKE 1 TABLET BY MOUTH EVERY 12 HOURS FOR 7 DAYS 08/30 completed Not Available Not Available Not Available Ventolin HFA 90 mcg/actua tion aerosol inhaler INHALE TWO PUFFS BY MOUTH THREE TIMES DAILY 2021 active Not Available Not Available Not Avai lable simethico ne 80 mg chewable tablet Take 1 tablet every 6 hours by oral route. 07/21 completed Not Available Not Available Not Available ezetimibe 10 mg tablet TAKE 1 TABLET BY MOUTH EVERY DAY active Not Available Not Available No t Available Humira 40 mg/0.8 mL subcutane ous syringe kit Inject 0.8 mL every 2 weeks by subcutan eous route for 30 days. 03/01 completed Not Available Not Available Not Available rosuvasta tin 5 mg tablet TAKE ONE TABLET BY MOUTH EVERY DAY 07/21 completed Not Available Not Available Not Available Spiriva with HandiHale r 18 mcg and inhalatio n capsules Inhale 1 capsule every day by inhalati on route at bedtime for 30 days. 05/09 completed Not Available Not Available Not Available solifenac in 5 mg tablet TAKE 1 TABLET BY MOUTH DAILY active Not Available Not Available No t Available biotin active otc Not Available Not Availa ble Not Available Tylenol active otc Not Available Not Avail able Not Available Vitamin D3 active otc 5,000 iu Not Available Not Available Not Available Vitamin B12 active otc 2500mg 1 a day Not Available Not Available Not Available Advair HFA 115 mcg-21 mcg/actua tion aerosol inhaler INHALE TWO puffs BY MOUTH TWICE DAILY 03/01 completed Not Available Not Available Not Available Symbicort 160 mcg-4.5 mcg/actua tion HFA aerosol inhaler Inhale 2 puffs twice a day by inhalati on route for 30 days. 02/16 completed Not Available Not Available Not Available Symbicort 07/21 completed Not Available Not Available Not Available diclofena c 1 % topical gel APPLY 2 GRAM TO THE AFFECTED AREA(S) BY TOPICAL ROUTE 4 TIMES PER DAY 03/28 completed Not Available Not Available Not Available levothyro xine 137 mcg capsule Take 1 capsule every day by oral route in the morning for 30 days. 03/22 completed Not Available Not Available Not Available Xarelto 20 mg tablet TAKE 1 TABLET BY MOUTH DAILY active Not Available Not Available No t Available Brisdelle 7.5 mg capsule Take 1 capsule every day by oral route. 2014 active Not Available Not Available Not Avai lable potassium chloride ER 20 mEq tablet,ex tended release TAKE ONE CAPSULE BY MOUTH ONCE DAILY 11/29 completed Not Available Not Available Not Available Ozempic 0.25 mg or 0.5 mg (2 mg/1.5 mL) subcutane ous pen injector Inject 0.5 mg every week by subcutan eous route. 05/30 completed Not Available Not Available Not Available Humira(CF ) Pen 40 mg/0.4 mL subcutane ous kit active Not Available Not Available Not Available Ozempic 0.25 mg or 0.5 mg (2 mg/3 mL) subcutane ous pen injector INJECT 0.5 MG UNDER THE SKIN ONCE A WEEK 05/30 completed did not tolerate medicati on Not Available Not Available Not Available Vitals Date Recorded Body height Oxygen saturation Oxygen saturation in Arterial blood by Pulse oximetry Heart rate Body temperature Body mass index (BMI) Body weight Systolic blood pressure Diastolic blood pressure Provider Name and Address Organization Details Last Updated DateTime 4 162.56 cm 98 % 98 % 74 /min 97.7 [degF] 50.5 kg/m2 668992. 16 g 145 mm[Hg] 90 mm[Hg] Kerrie Drummond [facility] 4 12:23:44 Date Recorded Body height Body mass index (BMI) Body weight Body temperature Heart rate Oxygen saturation Oxygen saturation in Arterial blood by Pulse oximetry Systolic blood pressure Diastolic blood pressure Provider Name and Address Organization Details Last Updated DateTime 4 162.56 cm 52.2 kg/m2 164253. 43 g 97.9 [degF] 73 /min 97 % 97 % 115 mm[Hg] 71 mm[Hg] Nimo [facility] 4 08:28:51 Date Recorded Body height Body mass index (BMI) Body weight Oxygen saturation Oxygen saturation in Arterial blood by Pulse oximetry Heart rate Body temperature Systolic blood pressure Diastolic blood pressure Provider Name and Address Organization Details Last Updated DateTime 4 162.56 cm 53.8 kg/m2 893644. 46 g 97 % 97 % 76 /min 97.7 [degF] 138 mm[Hg] 78 mm[Hg] Nimo [facility] 4 08:52:36 Date Recorded Body height Body mass index (BMI) Body weight Oxygen saturation Oxygen saturation in Arterial blood by Pulse oximetry Heart rate Respiratory rate Body temperature Systolic blood pressure Diastolic blood pressure Provider Name and Address Organization Details Last Updated DateTime 5 162.56 cm 55.8 kg/m2 197938. 87 g 97 % 97 % 76 /min 16 /min 97.5 [degF] 139 mm[Hg] 84 mm[Hg] Kerrie Horton [place] [facility] 5 09:33:09 Date Recorded Body height Body mass index (BMI) Body weight Oxygen saturation Oxygen saturation in Arterial blood by Pulse oximetry Heart rate Body temperature Systolic blood pressure Diastolic blood pressure Provider Name and Address Organization Details Last Updated DateTime 5 162.56 cm 57.6 kg/m2 496300. 24 g 96 % 96 % 82 /min 97.6 [degF] 145 mm[Hg] 82 mm[Hg] Nimo Mullen [place] [facility] 5 11:56:16 Social History Question Answer Notes LastModified by Organizat ion Details LastModified Time Tobacco Smoking Status Former Smoker Quit 04/16/15 Joann Franks MA [facility], [place] - [facility] 09/04/2017 12:12:51 Do You Have An Advance Directive? No Information not available 12/15/2014 Are You Blind Or Do You Have Difficulty Seeing? No Information not available 05/21/2020 Is Blood Transfusion Acceptable In An Emergency? Yes Information not available 12/15/2014 What Is Your Level Of Caffeine Consumption? Heavy Information not available 06/23/2014 How Much Tobacco Do You Chew? None Information not available 06/23/2014 In The 14 Days Before Symptom Onset, Have You Had Close Contact With A Laboratory-confir med COVID-19 While That Case Was Ill? No Information not available 03/22/2022 In The 14 Days Before Symptom Onset, Have You Had Close Contact With A Person Who Is Under Investigation For COVID-19 While That Person Was Ill? No Information not available 03/22/2022 Have You Been To An Area Known To Be High Risk For COVID-19? No Information not available 03/22/2022 Are You Deaf Or Do You Have Serious Difficulty Hearing? No Information not available 05/21/2020 What Type Of Diet Are You Following? REGULAR Information not available 06/23/2014 Education 10 Information no t available 06/23/2014 Are There Any Guns Present In Your Home? No Information not available 05/21/2020 Hard Of Hearing Or Deaf In One Or Both Ears? No Information not available 06/23/2014 Legally Blind In One Or Both Eyes? No Information no t available 06/23/2014 Live Alone Or With Others? With Others Information not available 12/15/2014 Marital Status Informatio n not available 06/23/2014 What Was The Date Of Your Most Recent Tobacco Screening? 07/19/2024 Information not available 07/19/2024 How Many Children Do You Have? 1 Information not available 12/15/2014 Performs Monthly Self-breast Exam? Yes Information no t available 12/15/2014 Do You Use Protection During Sex? No Information not available 12/15/2014 What Is Your Relationship Status? Information not available 03/07/2023 Do You Use Your Seat Belt Or Car Seat Routinely? Yes Information not available 05/21/2020 Seat Belts Used Routinely Yes Information not available 12/15/2014 Are You Sexually Active? No Information not available 03/22/2022 Do You Have Smoke And Carbon Monoxide Detectors In Your Home? Yes Information not available 05/21/2020 Are You Passively Exposed To Smoke? No Information no t available 05/21/2020 How Much Tobacco Do You Smoke? No Information not available 11/02/2020 General Stress Level Medium Information not available 06/23/2014 Do You Use Sunscreen Routinely? Yes Information not available 12/15/2014 Has Tobacco Cessation Counseling Been Provided? No Information not available 03/22/2022 On What Date Was Tobacco Cessation Counseling Provided? 04/18/2023 Information not available 04/18/2023 Sex: Female Functional Status Question Answer Note LastModified by Organizat ion Details LastModified Time Do you use any illicit or recreational drugs? No Information not available 07/21/2020 Do you or have you ever used any other forms of tobacco or nicotine? No Information not available 03/22/2022 What is your level of alcohol consumption? None Information not available 06/23/2014 Are you currently employed? No Information not available 03/22/2022 Are you able to care for yourself? Yes Information not available 05/21/2020 What is your exercise level? None Information not available 06/23/2014 Mental Status Question Answer Note LastModified by Organization D etails LastModified Time Do you feel stressed (tense, restless, nervous, or anxious, or unable to sleep at night)? [id number] Information not available 03/07/2023 Family History Relationship Description Onset Age of this Age Resolved Age Notes LastModified by Organization Details LastModified Time Father Malignant neoplasm of lung [email or web address] Not available 12/15 15:12:32 Father Malignant neoplasm of brain [email or web address] Not available 12/15 15:12:32 Mother Localized scleroderma [email or web address] Not available 15:12:32 Medical History Condition Response Coronary Artery Disease N Other N Atrial Fibrillation N High Blood Pressure Y Breast Cancer N Lung Disease N Depression N COPD Y Blood Clots Y Breast Problem N Anesthesia Complications N Headaches/Migraines N Anxiety Disorder N Muscle, Joint, or Bone Problems Y Arthritis Y Infertility N Polyps N Acid Reflux (GERD) N Cancer N Stroke N ADHD N Endometriosis N High Cholesterol N Liver Disease N Rheumatoid Arthritis Y Fibromyalgia N Schizophrenia N Headaches N Kidney Disease N Heart Problems N Thyroid Problems Y Kidney or Bladder Problems Y GI Problems N Acne N Have you had a mammogram in the last yea r? Y Eating Disorder N Skin Problems N Anemia N Heart Attack (DE) N Diabetes N Ovarian Cancer N Blood Transfusions N Seizures/Epilepsy N Have you had a colonoscopy in the last 1 0 years? Y Abuse/Domestic Violence N Asthma N Allergies Y Substance Abuse N Hepatitis N Heart Disease N Pre-Eclampsia N Hypertension Y Heart Failure N Osteoporosis N Gynecological History Statement/Question Response Date of Last Mammogram 01/08/2024 Date of LMP Menses Monthly N Date of Last Pap Smear 04/09/2022 Age at Menarche 10 Current Control Method Menopause Age at First Child 20 Obstetrics History GPAL:G 3 P 0 3 0 1 Type Value Multiple Births 0 Full Term 0 Induced 0 Spontaneous 0 Premature 3 Living 1 Ectopics 0 Total 3 Immunizations Vaccine Type Date Status Note Provider Nam e and Address Organization Details Recorded Time SARS-COV-2 (COVID-19) vaccine, UNSPECIFIED 1 completed BIRGIT JEFFERSON MD Attn: [address] [place], [place], [address] [place] [address], [facility] - [facility] 05/30/2024 10:03:57 SARS-COV-2 (COVID-19) vaccine, UNSPECIFIED 1 completed BIRGIT JEFFERSON MD Attn: [address] [place], [place], [address] [place] [address], [facility] - [facility] 05/30/2024 10:03:57 Hep A, adult 0 completed BIRGIT JEFFERSON MD Attn: [employer]ing,[address] [place], [place], [address] [place] [address] - [facility] 05/31/2023 09:08:01 Hep A, adult 9 completed BIRGIT JEFFERSON MD Attn: [employer]ing[address] [place], [address] [place] [address] - [facility] 05/31/2023 09:08:01 COVID-19, mRNA, LNP-S, PF, kimberly-sucrose, 30 mcg/0.3 mL 3 completed BIRGIT JEFFERSON MD Attn: [employer],[address] [place], [address] [place] [address], [facility] - [facility] 05/31/2023 09:08:21 COVID-19, mRNA, LNP-S, PF, kimberly-sucrose, 30 mcg/0.3 mL 4 completed BIRGIT JEFFERSON MD Attn: [employer]ing,[address] [place], [address] [place] [address], [facility] - [facility] 03/01/2024 09:23:28 Influenza, MDCK, trivalent, PF 4 completed BIRGIT JEFFERSON MD Attn: [employer]ing,[address] [place], [address] [place] [address], [place] - [facility] 03/01/2024 09:23:28 Influenza, split virus, quadrivalent, preservative 7 completed Not Available [facility] 04/06/2019 02:46:04 Influenza, split virus, quadrivalent, PF 8 completed Not Available [facility] 04/06/2019 02:44:20 Influenza, split virus, quadrivalent, preservative 9 completed Not Available [facility] 04/06/2019 02:38:14 Influenza, split virus, quadrivalent, preservative 0 completed Leann Cow[place] [facility] 01/21/2020 17:01:21 Influenza, split virus, quadrivalent, preservative 1 completed Leann [place] [facility] 01/06/2021 12:30:44 COVID-19, mRNA, LNP-S, PF, 30 mcg/0.3 mL dose 1 completed April Gruber [place] [facility] 02/17/2021 11:57:16 Tdap 2 completed Leann [place] [facility] 06/30/2021 09:57:05 Influenza, split virus, quadrivalent, preservative 2 completed Deandre Fonseca PA-C Attn: [address] [place], [address], [place] [facility] 12/30/2021 15:15:31 COVID-19, mRNA, LNP-S, PF, 30 mcg/0.3 mL dose, kimberly-sucrose 2 completed April Gr[place] [facility] 02/28/2022 09:48:24 Pneumococcal conjugate PCV20, polysaccharide USH525 conjugate, adjuvant, PF 4 completed Nimo Mullen [place] [facility] 03/01/2024 09:55:17 Past Encounters Encounter ID Performer Location Encounter Start Date Encounter Closed Date Diagnosis/Indication Diagnosis SNOMED-CT Code Diagnosis ICD10 Code Diagnosis Note [id number] DEXTER Ruiz (Adult Med) [address] [place] [phone] 06/23/2014 14:23:43 06/23/2014 17:39:58 Allergic rhinitis [id number] Ankle pain 030018736 Arthritis 0887692 Disorder o f vitamin B12 645280080 Disorder of vitamin D 826731891 Hyperlipidemia 26135927 Hyperthyroidism 77503138 Obesity 934752580 Ringing in ear 002352205 Hypothyroidism 95158217 Adult heal th examination 296793126 Dysuria [id number] MD Isac Gleason (Adult Med) [address] [place] [address] [phone] 08/29/2014 14:45:28 08/29/2014 15:57:20 Adult health examination 034320486 Allergic rhinitis 90333326 Ankle pain 103571349 Arthritis 1298704 Disorder o f vitamin B12 351277561 Disorder of vitamin D 873278676 Dysuria 56183375 Hyperlipidemia 25612734 Hypertensive disorder 45472413 Hypothyroidism 32690477 Obesity 632710904 Edema 476966629 [id number] DEXTER Ruiz (Adult Med) [address] [place] [address] [phone] 0 11/07/2014 14:34:29 11/07/2014 17:39:38 Adult health examination 769317095 Allergic rhinitis 17228483 Arthritis 7102989 Disorder o f vitamin B12 207259065 Disorder of vitamin D 248471265 Dysuria 95233483 Hyperlipidemia 88405679 Hypertensive disorder 19602533 Hypothyroidism 14966196 Rheumatoid arthritis 13918867 see labs CCP & RF: 10/24/14 Dyspnea 858128859 Ankle pain 117541521 Edema 086706386 [id number] MD Isac Srinivasan ([employer]) [address] [place] [address] [phone] 0 12/15/2014 14:35:25 12/15/2014 17:37:42 Screening for malignant neoplasm of breast 139467685 Menopausal syndrome 502839218 [id number] MD Isac Gleason (Adult Med) [address] [place] [address] [phone] 0 01/12/2015 14:26:21 01/12/2015 15:33:44 Adult health examination 727807308 Z00.00 Allergic rhinitis 780021 04 J30.9 Ankle pain 014300695 M25 .579 Arthritis 7845302 M19.90 Disorder o f vitamin B12 568602916 D51.1 Disorder of vitamin D 38 0174946 E55.9 Dyspnea 960458532 R06.00 Hyperlipidemia 12396599 E78.5 Hypertensive disorder 38 703046 I10 Hypothyroidism 61183927 E03.9 Obesity 443766270 E66.9 Rheumatoid arthritis 698 20777 M06.9 see labs CCP & RF: 10/24/14 Ringing in ear 158529452 H93.19 Tobacco user 018608338 Z 72.0 [id number] DEXTER Ruiz (Adult Med) [address] [place] [address] [phone] 0 03/16/2015 15:18:56 03/16/2015 16:28:29 Cellulitis of lower limb 042977891 L03.119 [id number] DEXTER Ruiz (Adult Med) [address] [place] [address] [phone] 0 04/27/2015 09:23:36 04/27/2015 10:10:21 Pulmonary embolism 11761839 I26.99 Deep venou s thrombosis of lower extremity 704976256 I82.402 [id number] DEXTER Ruiz (Adult Med) [address] [place] [address] [id number] 0 05/15/2015 09:33:24 05/15/2015 10:29:05 Cellulitis of lower limb 170266662 L03.119 Disorder of vitamin D 38 0345469 E55.9 Edema 087165127 R60.9 Hyperlipidemia 44228445 E78.5 Dyspnea 350680973 R06.00 Deep venou s thrombosis of lower extremity 903571371 I82.402 [id number] DEXTER Ruiz (Adult Med) [address] [place] [address] [phone] 0 06/12/2015 09:43:13 06/12/2015 10:48:40 Deep venous thrombosis of lower extremity 198428774 I82.402 Disorder o f vitamin B12 148558379 D51.1 Disorder of vitamin D 38 7555795 E55.9 Dyspnea 243918983 R06.00 Hyperlipidemia 82911715 E78.5 Obesity 064856139 E66.9 Pulmonary embolism 87107 003 I26.99 Rheumatoid arthritis 698 77538 M06.9 see labs CCP & RF: 10/24/14 Tobacco user 684783985 Z 72.0 off tobacco 2 months and 1 day [id number] DEXTER Ruiz (Adult Med) [address] [place] [address] [phone] 0 07/17/2015 10:04:10 07/17/2015 10:50:35 Rheumatoid arthritis 44385685 M06.9 see labs CCP & RF: 10/24/14 Edema of l ower extremity 507794044 R60.0 Allergic rhinitis 096365 04 J30.9 Deep venou s thrombosis of lower extremity 039089876 I82.402 Disorder o f vitamin B12 589840927 D51.1 Disorder of vitamin D 38 8503789 E55.9 Pulmonary embolism 72316 003 I26.99 Hypothyroidism 17977204 E03.9 [id number] MD Isac Gleason (Adult Med) [address] [place] [address] [phone] 0 09/17/2015 09:28:16 09/17/2015 10:24:48 Allergic rhinitis 53717697 J30.9 Deep venou s thrombosis of lower extremity 965868733 I82.402 Disorder o f vitamin B12 553930097 D51.1 Disorder of vitamin D 38 1449252 E55.9 Hyperlipidemia 97250223 E78.5 Edema of l ower extremity 102814979 R60.0 Obesity 116456525 E66.9 Pulmonary embolism 67715 003 I26.99 Rheumatoid arthritis 698 84544 M06.9 see labs CCP & RF: 10/24/14 Hypothyroidism 85332927 E03.9 Screening for malignant neoplasm of colon 077208464 Z12.11 Chronic ob structive pulmonary disease 14960920 J44.9 [id number] MD Isac Gleason (Adult Med) [address] [place] [address] [phone] 0 11/12/2015 09:38:41 11/13/2015 10:06:50 Chronic obstructive pulmonary disease 36947285 J44.9 Disorder o f vitamin B12 341561745 E53.8 Disorder of vitamin D 38 5931810 E55.9 Edema of l ower extremity 599913235 R60.0 Hyperlipidemia 55507735 E78.5 Hypothyroidism 59222885 E03.9 Obesity 352972866 E66.9 Pulmonary embolism 21282 003 I26.99 Rheumatoid arthritis 698 69460 M06.9 see labs CCP & RF: 10/24/14 Tobacco user 811049701 Z 72.0 off tobacco 2 months and 1 day; off tobacco since [id number] MD Isac Gleason (Adult Med) [address] [place] [address] [phone] 0 05/16/2016 09:34:01 05/16/2016 10:09:23 Chronic obstructive pulmonary disease 63601739 J44.9 Edema 392412180 R60.9 Hypothyroidism 80993453 E03.9 Hyperlipidemia 24972683 E78.5 Rheumatoid arthritis 698 24498 M06.9 see labs CCP & RF: 10/24/14 Edema of l ower extremity 728301446 R60.0 [id number] MD Isac Gleason (Adult Med) [address] [place] [address] [phone] 0 07/11/2016 09:34:13 07/11/2016 10:25:50 Rheumatoid arthritis 57627501 M06.9 see labs CCP & RF: 10/24/14 Pulmonary embolism 86472 003 I26.99 Hyperlipidemia 49281350 E78.5 Obesity 599600315 E66.9 Hypothyroidism 09040632 E03.9 Deep venou s thrombosis of lower extremity 503867536 I82.402 Disorder o f vitamin B12 097879138 E53.8 Disorder of vitamin D 38 4144408 E55.9 Hypertensive disorder 38 330536 I10 Chronic ob structive pulmonary disease 39739446 J44.9 Dyspnea 834620397 R06.00 Edema of l ower extremity 770704932 R60.0 [id number] DEXTER Ruiz (Adult Med) [address] [place] [address] [phone] 0 08/22/2016 10:13:42 08/22/2016 11:06:10 Edema 993186946 R60.9 Low back pain 940863563 M54.5 Chronic ob structive pulmonary disease 99776663 J44.9 Hypothyroidism 48281016 E03.9 [id number] Maisha Conroy MD [facility] (Adult Med) [address] [place] [address] [phone] 0 10/24/2016 09:34:52 10/24/2016 17:12:40 Hypothyroidism 04002004 E03.9 [id number] Maisha Conroy MD [facility] (Adult Med) [address] [place] [address] [phone] 0 01/03/2017 09:46:12 01/03/2017 10:36:20 Hypothyroidism 78113296 E03.9 Disorder o f vitamin B12 005422991 E53.8 Disorder of vitamin D 38 6924831 E55.9 Edema 915611643 R60.9 Arthritis 6007837 M19.90 Tobacco user 809344946 Z 72.0 Administra tion of influenza vaccine 69655486 Z23 Screening for malignant neoplasm of colon 399382158 Z12.11 [id number] Maisha Conroy MD [facility] (Adult Med) [address] [place] [address] [phone] 0 03/28/2017 09:37:35 03/28/2017 10:11:01 Obesity 702169440 E66.9 Hypothyroidism 78202075 E03.9 Cellulitis of lower limb 193305411 L03.119 Hyperlipidemia 36718551 E78.5 Edema 781181065 R60.9 Rheumatoid arthritis 698 29842 M06.9 see labs CCP & RF: 10/24/14 [id number] Maisha Conroy MD [facility] (Adult Med) [address] [place] [address] [phone] 0 05/23/2017 09:18:23 05/23/2017 10:08:05 Acute folliculitis 398569565 L73.9 Hypothyroidism 27592484 E03.9 Hyperlipidemia 87609564 E78.5 Pulmonary embolism 28552 003 I26.99 Rheumatoid arthritis 698 10900 M06.9 see labs CCP & RF: 10/24/14 Obesity 547021271 E66.9 Lethargy 823236566 R53.8 3 Disorder of vitamin D 38 8354637 E55.9 Deep venou s thrombosis of lower extremity 250169528 I82.563 [id number] Maisha Conroy MD [facility] (Adult Med) [address] [place] [address] [phone] 0 07/04/2017 09:29:51 07/04/2017 12:59:49 Cellulitis of lower limb 996708758 L03.119 Hyperlipidemia 74876867 E78.5 Eczema 14315289 L30.9 Chronic ob structive pulmonary disease 96002609 J44.9 Pulmonary embolism 72779 003 I26.99 Rheumatoid arthritis 698 94495 M06.9 see labs CCP & RF: 10/24/14 Obesity 484243480 E66.9 Disorder of vitamin D 38 0842762 E55.9 Disorder o f vitamin B12 148749857 E53.8 Hypertensive disorder 38 335971 I10 [id number] Maisha Conroy MD [facility] (Adult Med) [address] [place] [address] [phone] 0 09/04/2017 11:26:52 09/05/2017 09:22:27 Rheumatoid arthritis 07922033 M06.9 see labs CCP & RF: 10/24/14 Hyperlipidemia 74656957 E78.5 Hypothyroidism 71123251 E03.9 Pulmonary embolism 80804 003 I26.99 Low back pain 285348000 M54.5 Tobacco user 943703646 Z 72.0 Chronic ob structive pulmonary disease 85093344 J44.9 Arthritis 2438633 M19.90 Disorder of vitamin D 38 6112813 E55.9 Deep venou s thrombosis of lower extremity 049008211 I82.440 [id number] Maisha Conroy MD [facility] (Adult Med) [address] [place] [address] [phone] 0 10/12/2017 10:05:18 10/16/2017 10:59:39 Cellulitis of lower limb 099398532 L03.119 Aneurysm o f ascending aorta 278990633 I71.2 Low back pain 470637218 M54.5 Tobacco user 214546921 Z 72.0 Chronic ob structive pulmonary disease 98198683 J44.9 Hypertensive disorder 38 913809 I10 Disorder o f vitamin B12 627334173 E53.8 Disorder of vitamin D 38 6347568 E55.9 Obesity 388393637 E66.9 Hyperlipidemia 53239573 E78.5 Pulmonary embolism 64697 003 I26.99 Rheumatoid arthritis 698 49480 M06.9 see labs CCP & RF: 10/24/14 [id number] MD Isac Gleason (Adult Med) [address] [place] [address] [phone] 0 11/06/2017 09:24:42 11/06/2017 10:20:03 Chronic obstructive pulmonary disease 57742363 J44.9 Deep venou s thrombosis of lower extremity 614243822 I82.402 Hypothyroidism 23251464 E03.9 Obesity 475167972 E66.9 Hyperlipidemia 06963015 E78.5 Pulmonary embolism 20324 003 I26.99 Rheumatoid arthritis 698 34891 M06.9 see labs CCP & RF: 10/24/14 Hypertensive disorder 38 835808 I10 Cellulitis of lower limb 983070652 L03.066 [id number] [facility] [address] [place] [address] [phone] 0 01/09/2018 11:54:16 01/09/2018 13:07:01 Hyperlipidemia 91446038 E78.5 Edema of l ower extremity 708477130 R60.0 Hypertensive disorder 38 956737 I10 Hypothyroidism 11627034 E03.9 Rheumatoid arthritis 698 59644 M06.9 see labs CCP & RF: 10/24/14 Disorder of vitamin D 38 4762689 E55.9 Administra tion of influenza vaccine 86634189 Z23 Aneurysm o f ascending aorta 903108062 I71.2 Chronic ob structive pulmonary disease 07906719 J44.9 Dyspnea 312075945 R06.00 Pulmonary embolism 76302 003 I26.99 Obesity 191778200 E66.9 Deep venou s thrombosis of lower extremity 426607340 I82.402 Disorder o f vitamin B12 917033442 E53.8 Arthritis 4156132 M19.90 [id number] MD Isac Gleason (Adult Med) [address] [place] [address] [phone] 0 03/07/2018 09:31:53 03/07/2018 10:15:43 Chronic obstructive pulmonary disease 59458809 J44.9 Dyspnea 487470430 R06.00 Screening for malignant neoplasm of colon 922473646 Z12.11 Low back pain 521710458 M54.5 Edema of l ower extremity 026053386 R60.0 Tobacco user 550813487 Z 72.0 Arthritis 5883737 M19.90 Hypertensive disorder 38 329961 I10 Disorder of vitamin D 38 7713010 E55.9 Deep venou s thrombosis of lower extremity 949452355 I82.402 Hypothyroidism 14203334 E03.9 Obesity 850238000 E66.9 Hyperlipidemia 23154135 E78.5 Pulmonary embolism 14076 003 I26.99 [id number] Maisha Conroy MD [facility] (Adult Med) [address] [place] [address] [phone] 0 05/09/2018 09:18:26 05/11/2018 09:02:08 Acute sinusitis 53779469 J01.90 Hypothyroidism 79176243 E03.9 Rheumatoid arthritis 698 77992 M06.9 see labs CCP & RF: 10/24/14 Disorder o f vitamin B12 988310473 E53.8 Disorder of vitamin D 38 6758882 E55.9 Hyperlipidemia 50131417 E78.5 Obesity 281802275 E66.9 Screening for malignant neoplasm of breast 325967794 Z12.31 Aneurysm o f ascending aorta 535327993 I71.2 Low back pain 584016381 M54.5 Edema of l ower extremity 092469745 R60.0 Chronic ob structive pulmonary disease 32816832 J44.9 Tobacco user 039059466 Z 72.0 Cellulitis of lower limb 420222701 L03.119 Hypertensive disorder 38 060438 I10 Arthritis 2783346 M19.90 [id number] Maisha Conroy MD [facility] (Adult Med) [address] [place] [address] [phone] 0 07/09/2018 09:52:36 07/09/2018 10:30:35 Acute sinusitis 75416159 J01.90 Hypothyroidism 35114842 E03.9 Aneurysm o f ascending aorta 968991733 I71.2 Low back pain 272120456 M54.5 Tobacco user 334350064 Z 72.0 Chronic ob structive pulmonary disease 31945490 J44.9 Disorder of vitamin D 38 4125213 E55.9 Deep venou s thrombosis of lower extremity 729474363 I82.402 Obesity 787490430 E66.9 Hyperlipidemia 68930380 E78.5 Pulmonary embolism 95459 003 I26.99 Allergic rhinitis 175673 04 J30.9 Rheumatoid arthritis 698 82952 M06.9 see labs CCP & RF: 10/24/14 [id number] MD Isac Gleason (Adult Med) [address] [place] [address] [phone] 0 09/07/2018 09:47:28 09/10/2018 08:53:07 Edema of lower extremity 667709472 R60.0 Rheumatoid arthritis 698 62433 M06.9 see labs CCP & RF: 10/24/14 Acute sinusitis 65646490 J01.90 Hypothyroidism 79583643 E03.9 Aneurysm o f ascending aorta 757424521 I71.2 Low back pain 669977355 M54.5 Tobacco user 213068914 Z 72.0 Chronic ob structive pulmonary disease 52228860 J44.9 Arthritis 6483522 M19.90 Hyperlipidemia 41183355 E78.5 Hypertensive disorder 38 684975 I10 Disorder o f vitamin B12 787364192 E53.8 Disorder of vitamin D 38 6477920 E55.9 Deep venou s thrombosis of lower extremity 363322084 I82.402 Obesity 595324674 E66.9 Pulmonary embolism 32343 003 I26.99 Allergic rhinitis 108448 04 J30.9 [id number] DEXTER Ruiz (Adult Med) [address] [place] [address] [phone] 0 11/05/2018 17:00:34 11/05/2018 17:33:18 Edema of lower extremity 444818505 R60.0 Disorder o f vitamin B12 696116167 E53.8 Disorder of vitamin D 38 7619114 E55.9 Hypothyroidism 74816329 E03.9 Aneurysm o f ascending aorta 488329540 I71.2 Low back pain 244954550 M54.5 Chronic ob structive pulmonary disease 63413258 J44.9 Arthritis 2636318 M19.90 Deep venou s thrombosis of lower extremity 345565140 I82.402 Pulmonary embolism 66301 003 I26.99 Allergic rhinitis 557311 04 J30.9 Rheumatoid arthritis 698 16325 M06.9 see labs CCP & RF: 10/24/14 [id number] Maisha Conroy MD [facility] (Adult Med) [address] [place] [address] [phone] 0 12/28/2018 09:47:56 12/28/2018 10:43:04 Rheumatoid arthritis 83133805 M06.9 see labs CCP & RF: 10/24/14 Edema of l ower extremity 237060108 R60.0 Deep venou s thrombosis of lower extremity 755996025 I82.402 Administra tion of influenza vaccine 93835801 Z23 [id number] [facility] [address] [place] [address] [phone] 0 02/27/2019 09:29:39 02/27/2019 10:16:50 Hyperlipidemia 39229545 E78.5 Low back pain 716548689 M54.5 Obesity 741788435 E66.9 Rheumatoid arthritis 698 14668 M06.9 see labs CCP & RF: 10/24/14 Pulmonary embolism 67506 003 I26.99 Hypothyroidism 23641523 E03.9 Disorder of vitamin D 38 0245072 E55.9 Disorder o f vitamin B12 969233399 E53.8 Chronic ob structive pulmonary disease 07132033 J44.9 Screening for malignant neoplasm of colon 278090215 Z12.11 Allergic rhinitis 283688 04 J30.9 Aneurysm o f ascending aorta 881055081 I71.2 Deep venou s thrombosis of lower extremity 665643308 I82.402 Hypertensive disorder 38 920636 I10 [id number] ROSY LEWIS [facility] (Adult Med) [address] [place] [address] [phone] 0 04/02/2019 14:34:34 04/03/2019 11:51:15 Constipation 74415959 K59.00 Hx of recent screening colonoscop y in the past 1-2 weeks, all normal besides 4 polyps which were removed. Developed severe constipati on since, has not had a bowel movement in over 7 days. The past 2-3 days she admits to nausea and vomiting.S tates she has still been able to pass gas and drink plenty of fluids.Fee ls overall sick and fatigued.O n PE: appears pale and fatigued. HR 108. NL BP. increased bowel sounds.DDx : severe constipati on vs obstructio n- Spoke with Darian Fonseca and he agreed it is best to send her to the ER for evaluation and imaging- Patient and her plan to go to [facility] upon leaving office [id number] MD Isac Gleason (Adult Med) [address] [place] [address] [phone] 04/12/2019 10:46:49 04/16/2019 11:59:35 Hypothyroidism 00174220 E03.9 Rheumatoid arthritis 698 73693 M06.9 see labs CCP & RF: 10/24/14 Acute urin jessica tract infection 845632092 N39.0 Leukopenia 18244437 D72. 819 Allergic rhinitis 194549 04 J30.9 Arthritis 6151342 M19.90 Chronic ob structive pulmonary disease 43718306 J44.9 Deep venou s thrombosis of lower extremity 634233154 I82.402 Disorder o f vitamin B12 023780530 E53.8 Disorder of vitamin D 38 7607909 E55.9 Hyperlipidemia 99193124 E78.5 Pulmonary embolism 31650 003 I26.99 Venous ins ufficiency of leg 744026479 I87.2 [id number] [facility] [address] [place] [address] [phone] 0 04/30/2019 09:17:11 04/30/2019 10:00:49 Cellulitis of lower limb 822308684 L03.119 Edema of l ower extremity 312716615 R60.0 Hyperlipidemia 35692986 E78.5 Hypothyroidism 84500796 E03.9 Leukopenia 07641286 D72. 819 Low back pain 493649844 M54.5 Pulmonary embolism 51766 003 I26.99 Aneurysm o f ascending aorta 828140672 I71.2 Allergic rhinitis 509006 04 J30.9 Chronic ob structive pulmonary disease 00853011 J44.9 [id number] MD Isac Gleason (Adult Med) [address] [place] [address] [phone] 0 05/29/2019 11:20:21 05/29/2019 11:48:29 Screening for malignant neoplasm of breast 153345808 Z12.31 Obesity 944696375 E66.9 Pulmonary embolism 55837 003 I26.99 Hypothyroidism 79023436 E03.9 Hyperlipidemia 77360078 E78.5 Allergic rhinitis 973741 04 J30.9 Aneurysm o f ascending aorta 623670577 I71.2 Chronic ob structive pulmonary disease 93500408 J44.9 Deep venou s thrombosis of lower extremity 907530176 I82.402 Disorder of vitamin D 38 6916572 E55.9 Rheumatoid arthritis 698 62594 M06.9 see labs CCP & RF: 10/24/14 Venous ins ufficiency of leg 885069619 I87.2 [id number] Maisha Conroy MD [facility] (Adult Med) [address] [place] [address] [phone] 0 08/01/2019 08:04:32 08/01/2019 10:29:42 Constipation 65060254 K59.00 Allergic rhinitis 649815 04 J30.9 Aneurysm o f ascending aorta 441580921 I71.2 Chronic ob structive pulmonary disease 80695479 J44.9 Deep venou s thrombosis of lower extremity 265401631 I82.402 Disorder of vitamin D 38 6751481 E55.9 Hyperlipidemia 58361974 E78.5 Hypertensive disorder 38 460903 I10 Hypothyroidism 45455291 E03.9 Low back pain 962083320 M54.5 Pulmonary embolism 14771 003 I26.99 Tobacco user 570866846 Z 72.0 Venous ins ufficiency of leg 535140588 I87.2 Rheumatoid arthritis 698 18096 M06.9 see labs CCP & RF: 10/24/14 [id number] Maisha Conroy MD [facility] (Adult Med) [address] [place] [address] [phone] 0 09/26/2019 09:47:57 09/26/2019 10:30:21 Rheumatoid arthritis 30429548 M06.9 see labs CCP & RF: 10/24/14 Hypothyroidism 20350550 E03.9 Allergic rhinitis 448422 04 J30.9 Aneurysm o f ascending aorta 707586576 I71.2 Deep venou s thrombosis of lower extremity 307109212 I82.402 Chronic ob structive pulmonary disease 59234960 J44.9 Disorder o f vitamin B12 293340045 E53.8 Disorder of vitamin D 38 3704592 E55.9 Hyperlipidemia 93867953 E78.5 Hypertensive disorder 38 850093 I10 Low back pain 722016486 M54.5 Pulmonary embolism 06540 003 I26.99 Venous ins ufficiency of leg 388959338 I87.2 [id number] Maisha Conroy MD [facility] (Adult Med) [address] [place] [address] [phone] 0 11/27/2019 07:55:08 12/03/2019 05:57:18 Edema of lower extremity 762125966 R60.0 Rheumatoid arthritis 698 38780 M06.9 see labs CCP & RF: 10/24/14 Allergic rhinitis 246986 04 J30.9 Aneurysm o f ascending aorta 307466757 I71.2 Disorder o f vitamin B12 078372377 E53.8 Disorder of vitamin D 38 2758546 E55.9 Hyperlipidemia 99646224 E78.5 Hypertensive disorder 38 819711 I10 Hypothyroidism 09321628 E03.9 Leukopenia 07011714 D72. 819 Arthritis 6423879 M19.90 Chronic ob structive pulmonary disease 02084707 J44.9 Deep venou s thrombosis of lower extremity 950086311 I82.402 Pulmonary embolism 00400 003 I26.99 Venous ins ufficiency of leg 657888089 I87.2 [id number] Maisha Conroy MD [facility] (Adult Med) [address] [place] [address] [phone] 0 01/21/2020 08:03:24 01/21/2020 10:48:32 Edema of lower extremity 082649999 R60.0 Administra tion of influenza vaccine 28248352 Z23 Aneurysm o f ascending aorta 015014371 I71.2 Arthritis 0238613 M19.90 Chronic ob structive pulmonary disease 14254691 J44.9 Deep venou s thrombosis of lower extremity 149390079 I82.402 Disorder o f vitamin B12 011722894 E53.8 Disorder of vitamin D 38 7768808 E55.9 Hyperlipidemia 32478746 E78.5 Hypothyroidism 60308678 E03.9 Low back pain 304360529 M54.5 Pulmonary embolism 56244 003 I26.99 Rheumatoid arthritis 698 47721 M06.9 see labs CCP & RF: 10/24/14 Venous ins ufficiency of leg 627797055 I87.2 Allergic rhinitis 252024 04 J30.9 Hypertensive disorder 38 195449 I10 Leukopenia 30460289 D72. 776 [id number] Maisha Conroy MD [facility] (Adult Med) [address] [place] [address] [phone] 0 03/23/2020 09:04:10 03/23/2020 11:54:07 Rheumatoid arthritis 62199616 M06.9 see labs CCP & RF: 10/24/14 Hypothyroidism 85930843 E03.9 Arthritis 6810336 M19.90 Chronic ob structive pulmonary disease 85172318 J44.9 Deep venou s thrombosis of lower extremity 148912780 I82.402 Disorder o f vitamin B12 058738297 E53.8 Disorder of vitamin D 38 4386657 E55.9 Edema 066191841 R60.9 Hypertensive disorder 38 794170 I10 Leukopenia 03479416 D72. 819 Low back pain 689118413 M54.5 Tobacco user 749342523 Z 72.0 Venous ins ufficiency of leg 029579313 I87.2 [id number] Maisha Conroy MD [facility] (Adult Med) [address] [place] [address] [phone] 0 05/21/2020 08:06:33 05/21/2020 09:48:49 Chronic obstructive pulmonary disease 01489599 J44.9 Acute sinusitis 26134421 J01.90 Allergic rhinitis 734904 04 J30.9 Rheumatoid arthritis 698 25902 M06.9 see labs CCP & RF: 10/24/14 Arthritis 3885503 M19.90 Deep venou s thrombosis of lower extremity 263719941 I82.402 Disorder o f vitamin B12 061308784 E53.8 Disorder of vitamin D 38 9441256 E55.9 Hyperlipidemia 37693783 E78.5 Hypertensive disorder 38 381485 I10 Hypothyroidism 82471940 E03.9 Low back pain 431983721 M54.5 Pulmonary embolism 69493 003 I26.99 Venous ins ufficiency of leg 517228331 I87.2 [id number] Maisha Conroy MD [facility] (Adult Med) [address] [place] [address] [phone] 0 07/21/2020 08:10:46 07/21/2020 12:40:13 Hyperlipidemia 27148158 E78.5 Depression screening 171 494584 Z13.31 Allergic rhinitis 092275 04 J30.9 Aneurysm o f ascending aorta 071773732 I71.2 Chronic ob structive pulmonary disease 27955967 J44.9 Deep venou s thrombosis of lower extremity 324248102 I82.402 Disorder o f vitamin B12 432643008 E53.8 Disorder of vitamin D 38 4429372 E55.9 Hypertensive disorder 38 500846 I10 Hypothyroidism 66131681 E03.9 Low back pain 324285113 M54.5 Obesity 756101022 E66.9 Pulmonary embolism 11077 003 I26.99 Rheumatoid arthritis 698 26908 M06.9 see labs CCP & RF: 10/24/14 Tobacco user 431817758 Z 72.0 Venous ins ufficiency of leg 160020170 I87.2 [id number] Maisha Conroy MD [facility] (Adult Med) [address] [place] [address] [phone] 0 08/21/2020 09:42:33 08/21/2020 12:29:38 Rheumatoid arthritis 17092565 M06.9 see labs CCP & RF: 10/24/14 Acute sinusitis 62349856 J01.90 Cellulitis of lower limb 125329523 L03.119 Allergic rhinitis 534668 04 J30.9 Pulmonary embolism 42088 003 I26.99 Osteoarthr itis of right knee joint 6136524153 91614 M17.11 Obesity 389008295 E66.9 Low back pain 825739874 M54.5 Hypothyroidism 19050658 E03.9 Hypertensive disorder 38 695392 I10 Hyperlipidemia 31427168 E78.5 Disorder of vitamin D 38 1090228 E55.9 Disorder o f vitamin B12 361386632 E53.8 Aneurysm o f ascending aorta 264488437 I71.2 Chronic ob structive pulmonary disease 89457399 J44.9 [id number] Maisha Conroy MD [facility] (Adult Med) [address] [place] [address] [phone] 0 09/23/2020 11:51:39 09/23/2020 12:54:02 Allergic rhinitis 16563373 J30.9 Arthritis 2519004 M19.90 Chronic ob structive pulmonary disease 28654973 J44.9 Deep venou s thrombosis of lower extremity 594940078 I82.402 Disorder o f vitamin B12 242021179 E53.8 Disorder of vitamin D 38 4741112 E55.9 Hyperlipidemia 33222454 E78.5 Hypertensive disorder 38 816731 I10 Hypothyroidism 89975855 E03.9 Low back pain 788764962 M54.5 Pulmonary embolism 04394 003 I26.99 Rheumatoid arthritis 698 81592 M06.9 see labs CCP & RF: 10/24/14 Venous ins ufficiency of leg 666625813 I87.2 Tobacco user [id number] Z 72.0 [id number] Maisha Conroy MD [facility] (Adult Med) [address] [place] [address] [phone] 0 11/02/2020 10:39:01 11/02/2020 12:34:01 Allergic rhinitis 84351607 J30.9 Arthritis 6245521 M19.90 Chronic ob structive pulmonary disease 35274617 J44.9 Deep venou s thrombosis of lower extremity 301127156 I82.402 Disorder o f vitamin B12 456975466 E53.8 Disorder of vitamin D 38 1259159 E55.9 Hyperlipidemia 74012315 E78.5 Hypertensive disorder 38 607854 I10 Hypothyroidism 41180260 E03.9 Low back pain 126162495 M54.5 Pulmonary embolism 99263 003 I26.99 Rheumatoid arthritis 698 94078 M06.9 see labs CCP & RF: 10/24/14 Venous ins ufficiency of leg 000776114 I87.2 Tobacco user [id number] Z 72.0 Cellulitis of lower limb 754814903 L03.119 Increased frequency of urination 489153847 R35.0 [id number] Maisha Conroy MD [facility] (Adult Med) [address] [place] [address] [phone] 0 12/03/2020 10:26:26 12/03/2020 11:07:55 Acute urinary tract infection 555560019 N39.0 Allergic rhinitis 277196 04 J30.9 Disorder o f vitamin B12 630128330 E53.8 Disorder of vitamin D 38 7816188 E55.9 Hyperlipidemia 89822915 E78.5 Hypertensive disorder 38 648047 I10 Hypothyroidism 11111855 E03.9 Low back pain 079047878 M54.5 Rheumatoid arthritis 698 71483 M06.9 see labs CCP & RF: 10/24/14 Pulmonary embolism 19095 003 I26.99 Venous ins ufficiency of leg 403866803 I87.2 Tobacco user [id number] Z 72.0 [id number] Maisha Conroy MD [facility] (Adult Med) [address] [place] [address] [phone] 0 01/06/2021 11:39:54 01/07/2021 12:06:29 Rheumatoid arthritis 54731248 M06.9 see labs CCP & RF: 10/24/14 Constipation 65169255 K5 9.00 Acute urin jessica tract infection 669803683 N39.0 Administra tion of influenza vaccine 77932137 Z23 Chronic ob structive pulmonary disease 82114280 J44.9 Dysuria 03626809 R30.9 Hyperlipidemia 86170900 E78.5 Hypertensive disorder 38 588972 I10 Hypothyroidism 89079221 E03.9 Increased frequency of urination 964602765 R35.0 Obesity 192983049 E66.9 Pulmonary embolism 72602 003 I26.99 Tobacco user [id number] Z 72.0 Venous ins ufficiency of leg 808317306 I87.2 [id number] Maisha Conroy MD [facility] (Adult Med) [address] [place] [address] [phone] 0 02/17/2021 10:39:50 02/17/2021 12:50:25 Rheumatoid arthritis 14337405 M06.9 see labs CCP & RF: 10/24/14 Acute urin jessica tract infection 358951986 N39.0 Aneurysm o f ascending aorta 740908995 I71.2 Chronic ob structive pulmonary disease 65940205 J44.9 Deep venou s thrombosis of lower extremity 889708150 I82.402 Hyperlipidemia 59655645 E78.5 Hypertensive disorder 38 392708 I10 Hypothyroidism 82257476 E03.9 Low back pain 833334244 M54.50 Pulmonary embolism 22059 003 I26.99 Venous ins ufficiency of leg 992057419 I87.2 Allergic rhinitis 948839 04 J30.9 Arthritis 2727094 M19.90 Disorder of vitamin D 38 2687153 E55.9 Disorder o f vitamin B12 932806151 E53.8 [id number] ROSY LEWIS (Peds) [address] [place] [address] [phone] 0 02/17/2021 11:23:34 02/18/2021 08:15:00 Administration of SARS-CoV-2 mRNA vaccine 4102517436 Z23 [id number] MD Isac Gleason (Adult Med) [address] [place] [address] [phone] 0 04/12/2021 10:25:28 04/12/2021 11:41:31 Rheumatoid arthritis 50821895 M06.9 see labs CCP & RF: 10/24/14 Eczema 55639688 L30.9 Allergic rhinitis 977832 04 J30.9 Aneurysm o f ascending aorta 851444309 I71.2 Arthritis 9000864 M19.90 Chronic ob structive pulmonary disease 96878893 J44.9 Deep venou s thrombosis of lower extremity 054444460 I82.402 Disorder o f vitamin B12 597698187 E53.8 Disorder of vitamin D 38 5843838 E55.9 Hyperlipidemia 37237972 E78.5 Hypertensive disorder 38 585246 I10 Hypothyroidism 96097329 E03.9 Obesity 652946106 E66.9 Pulmonary embolism 94728 003 I26.99 Tobacco user 018031024 Z 72.0 Venous ins ufficiency of leg 911745480 I87.2 [id number] MD Isac Gleason (Adult Med) [address] [place] [address] [phone] 0 05/21/2021 09:48:53 05/21/2021 10:47:49 Disorder of vitamin B12 115157563 E53.8 Disorder of vitamin D 38 1913207 E55.9 Hyperlipidemia 50637273 E78.5 Hypertensive disorder 38 398937 I10 Hypothyroidism 15195693 E03.9 Pulmonary embolism 62245 003 I26.99 Venous ins ufficiency of leg 274472388 I87.2 Leukopenia 40991200 D72. 819 Osteoarthr itis of right knee joint 4431347257 62716 M17.11 Rheumatoid arthritis 698 32637 M06.9 see labs CCP & RF: 10/24/14 Allergic rhinitis 122203 04 J30.9 Aneurysm o f ascending aorta 678069379 I71.2 Arthritis 0312137 M19.90 Chronic ob structive pulmonary disease 04166341 J44.9 Deep venou s thrombosis of lower extremity 447301903 I82.402 Low back pain 546517937 M54.50 Tobacco user 070754139 Z 72.0 [id number] Maisha Conroy MD [facility] (Adult Med) [address] [place] [address] [phone] 0 06/23/2021 09:27:45 06/24/2021 11:23:21 Administration of diphtheria and tetanus vaccine 60616088 Z23 Allergic rhinitis 649507 04 J30.9 Aneurysm o f ascending aorta 412301271 I71.2 Arthritis 1647961 M19.90 Chronic ob structive pulmonary disease 83439775 J44.9 Deep venou s thrombosis of lower extremity 821131956 I82.402 Disorder o f vitamin B12 019831779 E53.8 Disorder of vitamin D 38 1352382 E55.9 Hyperlipidemia 30552487 E78.5 Hypertensive disorder 38 750984 I10 Hypothyroidism 39658485 E03.9 Leukopenia 02637926 D72. 819 Low back pain 102839941 M54.50 Osteoarthr itis of right knee joint 8351363161 68744 M17.11 Pulmonary embolism 86625 003 I26.99 Rheumatoid arthritis 698 85955 M06.9 see labs CCP & RF: 10/24/14 Thyroiditis 99252362 E06 .9 Venous ins ufficiency of leg 862052353 I87.2 [id number] Maisha Conroy MD [facility] (Adult Med) [address] [place] [address] [phone] 0 08/23/2021 10:17:45 08/24/2021 11:21:06 Hypothyroidism 77858601 E03.9 Rheumatoid arthritis 698 92843 M06.9 see labs CCP & RF: 10/24/14 Allergic rhinitis 034520 04 J30.9 Aneurysm o f ascending aorta 372720865 I71.2 Arthritis 3506434 M19.90 Chronic ob structive pulmonary disease 68423856 J44.9 Deep venou s thrombosis of lower extremity 522080744 I82.402 Disorder o f vitamin B12 413951939 E53.8 Hyperlipidemia 26164414 E78.5 Low back pain 591875878 M54.50 Obesity 558364323 E66.9 Pulmonary embolism 27732 003 I26.99 Venous ins ufficiency of leg 783977991 I87.2 Disorder of vitamin D 38 8764073 E55.9 [id number] MD Isac Gleason (Adult Med) [address] [place] [address] [phone] 0 09/24/2021 11:05:51 09/27/2021 09:27:34 Essential hypertension 08261861 I10 Screening for malignant neoplasm of breast 004332228 Z12.31 [id number] Maisha Conroy MD [facility] (Adult Med) [address] [place] [address] [phone] 0 10/29/2021 12:17:21 11/01/2021 13:38:58 Chronic obstructive pulmonary disease 01215523 J44.9 Essential hypertension 20647176 I10 Hypothyroidism 91614490 E03.9 Allergic rhinitis 382019 04 J30.9 Aneurysm o f ascending aorta 744845582 I71.2 Arthritis 5083844 M19.90 Deep venou s thrombosis of lower extremity 256647582 I82.402 Disorder o f vitamin B12 564721283 E53.8 Disorder of vitamin D 38 5946872 E55.9 Hyperlipidemia 07424576 E78.5 Low back pain 897352740 M54.50 Obesity 505596445 E66.9 Osteoarthr itis of right knee joint 9962185820 41464 M17.11 Pulmonary embolism 96208 003 I26.99 Rheumatoid arthritis 698 83757 M06.9 see labs CCP & RF: 10/24/14 Venous ins ufficiency of leg 850907172 I87.2 [id number] MD Isac Gleason (Adult Med) [address] [place] [address] [phone] 0 11/29/2021 12:29:29 12/20/2021 18:47:47 Urgent desire to urinate 22412001 R39.15 Edema of l ower extremity 641751154 R60.0 Essential hypertension 51791371 I10 Chronic ob structive pulmonary disease 04762076 J44.9 Arthritis 5428670 M19.90 Acute sinusitis 46250709 J01.90 Bacterial vaginosis 4197 45892 N76.0 Urinary incontinence 165 756212 R32 Rheumatoid arthritis 698 88888 M06.9 see labs CCP & RF: 10/24/14 [id number] MD Isac Gleason (Adult Med) [address] [place] [address] [phone] 0 12/30/2021 09:18:29 12/31/2021 16:01:41 Acute sinusitis 38383169 J01.90 Allergic rhinitis 007774 04 J30.9 Arthritis 2265018 M19.90 Chronic ob structive pulmonary disease 24741830 J44.9 Disorder o f vitamin B12 216738896 E53.8 Eczema 00574890 L30.9 Edema of l ower extremity 929128919 R60.0 Essential hypertension 11638628 I10 Hyperlipidemia 47054339 E78.5 Increased frequency of urination 204810990 R35.0 Obesity 820350749 E66.9 Pulmonary embolism 43829 003 I26.99 Rheumatoid arthritis 698 21820 M06.9 see labs CCP & RF: 10/24/14 Thyroiditis 27096703 E06 .9 Tobacco user 105787314 Z 72.0 Constipation 06887308 K5 9.00 Administra tion of influenza vaccine 83301286 Z23 [id number] MD Isac Amezquita (Adult Med) [address] [place] [address] [phone] 0 02/16/2022 11:32:32 02/18/2022 12:02:58 Low back pain 535886764 M54.50 Cont tramadol [id number] ROSY LEWIS (Peds) [address] [place] [address] [phone] 02/28/2022 09:27:17 03/02/2022 08:57:58 Administration of SARS-CoV-2 mRNA vaccine 9146696415 Z23 [id number] MD [facility] ([facility]) [address] [place] [address] 03/22/2022 15:26:53 03/23/2022 11:14:14 Screening for malignant neoplasm of cervix 733987659 Z12.4 - Due for co-testing ; collected today Hypothyroidism 41073111 E03.9 - Last TSH wnl on 10/29/21- Continue follow up with endocrinol ogy Screening for malignant neoplasm of respiratory tract 818857432 Z12.2 Z87.891 - Former smoker with 39 pack-years ; quit smoking in 2016 (7 years ago)- Does meet criteria for annual low-dose CT chest; ordered today Prediabetes 902636838 R7 3.03 - Last A1c 5.7% on 10/29/21- Continue follow up with endocrinol ogy Essential hypertension 21201122 I10 - BP not at goal today- Continue follow up with cardiology History of polyp of colon 037299952 Z86.010 - History of polyps removed at colonoscop y on 03/21/2019; recommende d 3 year follow up [id number] MD Chelle [facility] ([facility]) [address] [place] [address] 08/08/2022 15:49:54 08/09/2022 14:28:20 Increased frequency of urination 605609437 R35.0 R39.15 N39.3 - Suspect overactive bladder in addition to pelvic floor dysfunctio n- UA abnormal with trace LE; f/u UA/M with reflex to culture and treat as indicated by results- Discussed bladder training, pelvic floor exercises, and options for specialist management , including evaluation by a urologist for post-void residual and possible urodynamic testing and evaluation and treatment by a pelvic floor physical therapist- Patient interested in referrals to pelvic floor PT and urology; referrals placed today- Provided handouts from [employer] and exercises from the [employer] to start doing while waiting for PT referral Body mass index 40+ - severely obese 449161401 Z68.43 - Provided patient with chair exercises today- Continue no-sugar or sugar substitute drinks Constipation 90398379 K5 9.00 - Stable with nightly docusate; refilled today Rheumatoid arthritis 698 68165 M06.9 - Refilled anthony tramadol Hypothyroidism 13258258 E03.9 - Last TSH wnl on 10/29/21- f/u TSH w/ reflex free T4- Continue follow up with endocrinol ogy; may need new referral due to current endocrinol ogist frequently having to reschedule appointmen ts with patient Type 2 catia betes mellitus 85067277 E11.9 - Would like to come off of metformin if possible- f/u A1c [id number] MD Louis GELLER ([facility] [facility]) [address] [place] [address] 11/02/2022 10:11:15 11/03/2022 16:14:11 Screening for malignant neoplasm of breast 924531235 Z12.31 - Due for screening mammogram; ordered today Rheumatoid arthritis 698 46661 M06.9 - Refilled home tramadol- Follows with specialist at [facility]- Will be restarting Humira soon Increased frequency of urination 362344413 R35.0 R39.15 N39.3 - 08/08/22: Suspect overactive bladder in addition to pelvic floor dysfunctio n. Referred to urology and pelvic floor PT.- 11/02/22: Has cystoscopy scheduled for next week. Urodynamic testing with urology continues to get reschedule d. Continue following with urologist. Patient has declined pelvic floor PT until urology workup is completed. Type 2 catia betes mellitus 09952333 E11.9 - Last A1c 5.5% on 08/08/22. Weaned off of metformin as of visit on 11/02/22.- LDL: On ezetimibe only. Lipid panel ordered 11/02/22.- Nephropath y screening: serum labs and microalbum in testing ordered 11/02/22- Retinopath y screening: patient to schedule ophtho follow up- Neuropathy screening: to be performed at visit in 3 months Body mass index 40+ - severely obese 282211800 Z68.42 - Down 7 pounds from visit in July- Continue lifestyle changes as previously discussed [id number] MD Louis GELLER ([facility] [facility]) [address] [place] [address] 03/07/2023 08:46:31 03/08/2023 11:36:17 Rheumatoid arthritis 27689475 M06.9 - No need for home tramadol refills at this time. Back on Humira; continue following with rheumatolo gist at [facility] - will appreciate recommenda tions. Advised to lose additional weight by rheumatolo gist. Increased frequency of urination 701667721 R35.0 R39.15 N39.3 - 08/08/22: Suspect overactive bladder in addition to pelvic floor dysfunctio n. Referred to urology and pelvic floor PT.- 11/02/22: Has cystoscopy scheduled for next week. Urodynamic testing with urology continues to get reschedule d. Continue following with urologist. Patient has declined pelvic floor PT until urology workup is completed. - 03/07/23: Transferre d urologist due to previous urologist transferri ng to a different office. Sees ROSY Salinas, at [facility] now. Was told she has a small bladder. Type 2 catia betes mellitus 25357882 E11.9 - Last A1c 5.5% on 08/08/22. Weaned off of metformin as of visit on 11/02/22 with updated A1c 5.4%- LDL: On ezetimibe with LDL 137 on 11/02/22; restarted atorvastat in. f/u new lipid panel- Nephropath y screening: wnl on 11/02/22- Retinopath y screening: reports negative screening done prior to 02/2023- Neuropathy screening: performed 03/07/23 Body mass index 40+ - severely obese 478984541 Z68.42 - Continue lifestyle changes as previously discussed. Will monitor weight while on Ozempic.- Exercise limited by pain from rheumatoid arthritis Muscle pain 26276207 M79 .10 - Cramping at night since starting atorvastat in- f/u BMP and total CK to evaluate for statin-rel ated myopathy vs electrolyt e abnormalit y contributi ng to muscle cramping [id number] MD Louis GELLER ([facility] [facility]) [address] [place] [address] 04/18/2023 08:42:04 04/19/2023 10:05:36 Type 2 diabetes mellitus 49439893 E11.9 - On Ozempic, now increasing to 0.5 mg weekly- Last A1c 5.4% on 11/02/22- LDL: At goal with LDL 98 on 03/07/23 on ezetemibe and atorvastat in- Nephropath y screening: wnl on 11/02/22- Retinopath y screening: reports negative screening done prior to 02/2023- Neuropathy screening: performed 03/07/23 Rheumatoid arthritis 698 36479 M06.9 - Back on Humira; continue following with rheumatizzy cifuentes at [facility] - will appreciate recommenda tions. Advised to lose additional weight by silvia cifuentes. Body mass index 40+ - severely obese 244842096 Z68.42 - Continue lifestyle changes as previously discussed. Will monitor weight while on Ozempic.- Exercise limited by pain from rheumatoid arthritis [id number] MD Louis GELLER ([employer] [facility]) [address] [place] [address] 05/31/2023 08:31:17 06/16/2023 09:55:19 Type 2 diabetes mellitus 61866043 E11.9 - Did not tolerate Ozempic due to GI side effects; discontinu ed 05/31/23- Last A1c 5.4% on 11/02/22- LDL: At goal with LDL 98 on 03/07/23 on ezetemibe and atorvastat in- Nephropath y screening: wnl on 11/02/22- Retinopath y screening: reports negative screening done prior to 02/2023- Neuropathy screening: performed 03/07/23 Body mass index 40+ - severely obese 987988730 Z68.42 - Continue lifestyle changes as previously discussed. Advised adequate protein intake and continued daily walks.- Exercise limited by pain from rheumatoid arthritis [id number] MD Louis GELLER ([employer] [facility]) [address] [place] [address] 07/14/2023 12:11:33 07/19/2023 19:21:10 Acute upper respiratory infection 83154468 J06.9 - Discussed supportive care at home with emphasis on maintainin g adequate hydration - Provided anticipato ry guidance for when to call office and/or seek emergency treatment - Follow up as needed Essential hypertension 35664413 I10 - BP not at goal today- Continue follow up with cardiology Acute sinusitis 17146897 J01.90 - History and exam most suggestive of acute sinusitis- Will treat with abx: amox-clav 875-125 BID x7d- Recommende d nasal irrigation and fluticason e nasal spray for further symptom management - RTC if no improvemen t in symptoms with abx [id number] MD Louis GELLER ([employer]) [address] [place] [address] 08/31/2023 08:18:08 08/31/2023 21:21:54 Rheumatoid arthritis 79216107 M06.9 - Back on Humira; continue following with silvia cifuentes at [facility] - will appreciate recommenda tions. Advised to lose additional weight by silvia cifuentes.- Refilled home tramadol 50 mg BID Constipation 15881245 K5 9.00 - Stable with nightly docusate; refilled today Obesity 014867218 E66.01 Z68.43 - Continue lifestyle changes as previously discussed. Patient not interested in making further dietary changes as of 08/31/23.- Exercise limited by pain from rheumatoid arthritis [id number] MD Louis GELLER ([employer]) [address] [place] [address] 03/01/2024 08:44:15 03/06/2024 14:50:11 Adult health examination 802360696 Z00.00 - Health Risk Assessment collected and reviewed Advance care planning 71 4084749 Z71.89 - Discussed importance of completing advanced care directives , including healthcare power of automobile insurance claim examiner paperwork and POLST form. Provided copy of POLST forms and reviewed documents with patient.- Return to clinic after discussing wishes for care to sign POLST and to get copies of documents scanned into chart Primary he [facility] care team falls assessment done 460585160 Z76.89 - High risk for falls based on STEADI Fall Risk questionna jealni and interview with patient- Provided handout on preventing falls, safety at home Screening for cardiovascular system disease 167385917 Z13.6 - Advised regular physical activity and nutritious diet. Handout on healthy foods provided. Infection screening 4214 32588 Z11.9 - Low risk of STIs- Immunizati on record reviewed and relevant vaccines recommende d Screening for cancer 158 35870 Z12.9 - Reviewed USPSTF A&B recommenda tions for cancer screenings ; tests/refe rrals ordered as indicated Administra tion of viral vaccine 85280489 Z23 Administra tion of pneumococcal vaccine 85989809 Z23 History of polyp of colon 682254416 Z86.0100 - Reports normal colonoscop y in 2022 with recommende d 5 year follow up. Will obtain outside report to confirm. Obesity 519989080 Z68.43 E66.813 - Continue lifestyle changes as previously discussed. Patient not interested in making further dietary changes as of 08/31/23.- Exercise limited by pain from rheumatoid arthritis Dysuria 86183921 R30.0 - Discussed negative dipstick results with patient; no concern for UTI at this time Screening for malignant neoplasm of respiratory tract 899645948 Z12.2 Z87.891 - Former smoker with 39 pack-years ; quit smoking in 2016 (7 years ago)- Does meet criteria for annual low-dose CT chest; ordered today Hepatitis C screening 41 3664632 Z11.59 - Once in lifetime screening per USPSTF recommenda tions Essential hypertension 15740833 I10 - Chronic, controlled - Follows with cardiology - Continue losartan 50 mg daily Hyperlipidemia 96814250 E78.5 - Chronic, controlled - Continue ezetimibe 10 mg daily- Patient has not had atorvastat in filled since 90d supply in September. Will send in refills now, as patient should be on moderate-i ntensity statin for history of diabetes. Hypothyroidism 62455405 E03.9 - Chronic, controlled . Last TSH wnl on 10/29/21 and 07/2022.- Continue levothyrox ine 137 mcg daily pending normal repeat TSH Rheumatoid arthritis 698 99389 M06.9 - On Humira and leflunomid e; continue following with rheumatolo gist at [facility] - will appreciate recommenda tions. Advised to lose additional weight by rheumatolo gist but patient not interested in doing this.- Refilled home tramadol 50 mg BID Type 2 catia betes mellitus 78595454 E11.9 - Chronic, diet-contr olled. Last A1c 5.4% on 11/02/22.- Annual labs ordered 03/01/24.- Did not tolerate Ozempic due to GI side effects.- LDL: At goal with LDL 98 on 03/07/23 on ezetimibe and atorvastat in- Nephropath y screening: wnl on 11/02/22- Retinopath y screening: reports negative screening done prior to 02/2023- Neuropathy screening: performed 03/07/23; RTC in 3 months for DM2 foot exam [id number] [facility] [address] [place] [address] 05/30/2024 09:21:21 05/31/2024 14:24:23 Type 2 diabetes mellitus 91387325 E11.21 - Did not tolerate Ozempic in past due to GI side effects- 05/30/24: Discussed LDL goal <70 in diabetes. Management as below in separate problem for hyperlipid emia Medication regimen- Diabetes meds: N/A - diet-contr olled- Statin: did not tolerate pravastati n, atorvastat in, and rosuvastat in; on ezetimibe Lab review- A1c: 5.9% (02/2024)- Serum creatinine : 0.80 (02/2024)- eGFR: 83 (02/2024)- LDL: 107 (02/2024)- Urine albumin/cr eatinine ratio: 79 (03/01/24) Complicati on screening exams- Last foot exam: done 05/30/24- Last eye exam: saw optometris t 11/28/23 but no documentat ion of diabetes retinopath y screening Vaccines- COVID: UTD, 01/17/24- Flu: UTD, 01/02/24- Pneumococc al: UTD, 03/01/24- RSV (if age 60+): ordered to pharmacy 03/01/24- Tdap (if not up to date): UTD, 06/23/21- Shingles (if age 50+): due- Hepatitis B: due Venous ins ufficiency of leg 149504117 I87.2 - Advised patient to use compressio n stockings first thing in the morning to reduce edema Hyperlipidemia 50945430 E78.5 - Chronic, not at goal. Recommende d LDL less than 70 for patient with diabetes.- Continue ezetimibe 10 mg daily- Per chart review, patient has tried multiple statins (pravastat in, atorvastat in, and rosuvastat in). Most recently, patient has used atorvastat in and reports cramping in her legs at night with this medication . Discussed trying a PCSK9 inhibitor to further reduce LDL, but patient prefers to discuss with cardiologvaleria kent, who she sees within the next couple of weeks. Peripheral vascular disease 247301227 I73.9 - Home assessment through insurance using [employer] shows mild/moder ate disease bilaterall y (0.89-0.30 )- Patient on Xarelto for history of DVT/PE Depression screening 171 345821 Z13.31 - Negative PHQ-9 [id number] BIRGIT JEFFERSON MD [facility] ([facility] US[facility]) [address] [place] [address] 07/19/2024 11:15:14 07/22/2024 14:36:25 Pelvic mass 76916365 R19.00 - 3.[address] scan, unclear if an exophytic mass of the uterus vs an ovarian mass- F/u pelvic ultrasound to further characteri ze this lesion Increased frequency of urination 956800140 R35.0 - 08/08/22: Suspect overactive bladder in addition to pelvic floor dysfunctio n. Referred to urology and pelvic floor PT.- 11/02/22: Has cystoscopy scheduled for next week. Urodynamic testing with urology continues to get reschedule d. Continue following with urologist. Patient has declined pelvic floor PT until urology workup is completed. - 03/07/23: Transferre d urologist due to previous urologist transferri ng to a different office. Sees ROSY Salinas, at [facility] now. Was told she has a small bladder.- 07/19/24: Reviewed urologist note from September 2023. Patient uses solifenaci n for symptoms. Reviewed negative dipstick results with the patient. Genitourin jessica syndrome of menopause [id number] 7042674 N95.8 - Suspect pain with urination and some of the urinary frequency symptoms may be related to GSM- Will treat empiricall y with a vaginal estrogen Lumbar sprain [id number] [id number] - Right-side d lumbar paraspinal muscle hypertonic ity and pain likely due to sprain vs spasm- Recommende d physical therapy, but patient declined- Return to clinic if symptoms do not improve on its own Health Concerns Section Related Observation LastModified by Organization Detai ls LastModified Time None Recorded Concern Status LastModified by Organization Details LastModified Time None Recorded Advance Directives Directive N: Payers Encounter Date Sequence Insurance Name Policy Number Policy Vivas Covered Member ID Vivas Member ID Guarantor Name 07/14/2023 1 [facility] (MEDICARE REPLACEMENT/A DVANTAGE - HMO) [id number] Nory I Eleno [id number] [place] 08/31/2023 1 [facility] (MEDICARE REPLACEMENT/A DVANTAGE - HMO) [id number] Nory I [place] [id number] Grazyna Eleno 03/01/2024 1 [facility] (MEDICARE REPLACEMENT/A DVANTAGE - HMO) [id number] Nory I [place] [id number] Grazyna Eleno 05/30/2024 1 [facility] (MEDICARE REPLACEMENT/A DVANTAGE - HMO) [id number] Nory I [place] [id number] Grazyna [place] 07/19/2024 1 [facility] (MEDICARE REPLACEMENT/A DVANTAGE - HMO) [id number] Nory I [place] [id number] Grazyna Eleno Notes Date Note Type Note Provider Name and Address Organization Details Recorded Time 07/14/2023 text/html URI symptoms- Sy mptoms started last Monday with sneezing. Took Benadryl for supposed allergy flare up- Developed fevers to 101.5F on Monday night- Has productive cough (used Robitussin), runny nose, sinus pain- No ear pressure or pain. Right ear was ringing, but this has improved- Has needed inhalers; felt like she needed to get more air in. This is the first time she has used it in 6-9 months. Denies wheezing or chest pain.- Also has RUQ abdominal cramping that wraps around to back. Does not hurt worse after eating. Improves after hot shower.- Has some discomfort with urination. Has stress urinary incontinence with coughing. No urinary urgency or frequency. BIRGIT JEFFERSON MD Attn: Accounting,[address] [facility], [place], [address], [place] [facility] 07/18/2023 22:34:14 08/31/2023 text/html Weight loss- Has gained weight since stopping Ozemepic, as patient states she has decided not to watch what she eats- Has been trying to go on walks more and spend time in the garden since the weather is better - Tours [employer] Dr. Newton moving offices to [facility] in [place] BIRGIT JEFFERSON MD Attn: Accounting,[address], [place], [address], [place] [facility] 08/31/2023 16:32:28 03/01/2024 text/html Medicare Annual Wellness VisitHealth Risk Assessment (HRA) form: completed by {{patient* family careg iver}} and reviewed The following were reviewed and updated in chart:- Past Medical History- Past Surgical History- Medications (OTC and Rx)- Allergies- Family History- Social History Immunizations:- Influenza: {{due UTD*}}- COVID: {{due UTD*}}- RSV (age 60+ with risk factors, age 75+): {{due* UTD}}- Tdap (if not done in past 10 years): {{due UTD*}}- Pneumococcal: {{due* UTD}} - PCV20 recommended- Shingles (age 50+): {{due* UTD}} - will consider at another date USPSTF A and B recommendationsCVD risk- AAA screening - one-time [place] (men who have ever smoked, age 65-75): {{due UTD N/A*}}- CVD prevention - healthy diet and physical activity counseling: {{due* UTD N/A}}- HTN screening: see vitals- Prediabetes, DM2 screening (ages 35-70 with overweight or obesity): {{due* UTD N/A}}- Statin use for primary prevention of CVD - if 10-year CVD risk 10%+ (ages 40-75): {{due UTD* N/A}} - on atorvastatin 10 mg daily- Weight loss to prevent obesity-related morbidity/mortality: {{due* UTD N/A}} Infection risk- STI counseling - if increased risk for infection: {{due UTD N/A*}} - not sexually active- Syphilis screening - if increased risk for infection: {{due UTD N/A*}}- HepB screening - if increased risk for infection: {{due UTD N/A*}}- HepC screening - once in lifetime: {{due* UTD N/A}}- HIV screening (up to age 65 + increased risk for infection): {{due UTD* N/A}} - neg in 2015- PrEP - if increased risk of HIV: {{due UTD N/A*}}- Latent TB screening - if increased risk for infection: {{due UTD N/A*}} Cancer screening- Breast cancer screening (ages 40-74) - mammo every 2 years: {{due UTD* N/A}} - BI-RADS 1 (12/2023)- Cervical cancer screening - co-testing every 5 years (ages 30-65): {{due UTD* N/A}} - NILM, neg hr-HPV (03/2022)- Colon cancer screening - colonoscopy vs stool-based testing (ages 45-75): {{due UTD* N/A}} - polyps removed during colonoscopy in 2019 with 3 year follow up recommended; states had it done in 2022 with 5 year follow up due to no polyps- Lung cancer screening - annual LDCT chest (ages 50-80 with 20 pack-year smoking history AND current smoking or quit within past 15 years): {{due* UTD N/A}} - former smoker, 1 ppd from age 16 till 2016 (39 years) = 39 pack-years Mental health- Depression screening: see PHQ-2/PHQ-9- Anxiety screening (under age 65): {{due UTD* N/A}} - done today Substance use- Tobacco use screening + cessation counseling: see scanned HRA- Unhealthy alcohol use screening + counseling: see scanned HRA- Unhealthy drug use screening: see scanned HRA Bone health- Fall prevention - recommend exercise (age 65+): {{due UTD N/A*}} - age- Osteoporosis screening - DEXA (women ages 65+): {{due UTD N/A*}} - age UTI concerns- Dysuria for past couple of weeks- Has chronic bladder issues, which causes baseline urinary frequency BIRGIT JEFFERSON MD Attn: Accounting,[address] [facility], [place], [address], [facility] 03/01/2024 17:43:03 05/30/2024 text/html Diabetes follow upSymptoms- Vision problems: {{yes no*}}- Numbness/tingling: {{yes no*}}- Hypoglycemia: {{yes no*}}- Chest pain: {{yes no*}}- Nausea, vomiting, diarrhea: {{yes no*}}- Ulcerations or sores: {{yes no*}}- Pain in legs when walking: {{yes no*}}- Had someone from insurance come to the house yesterday and had A1c checked, which was 4.4%- Also had leg circulation testing done BIRGIT JEFFERSON MD Attn: Accounting,[address] [place], [address], [facility] 05/30/2024 12:36:14 07/19/2024 text/html Abnormal CT scan - Here with daughter Dodie to discuss recent CT results, which showed some abnormalities in the pelvis. Patient and family concerned due to family history of endometriosis in her daughter and multiple relatives with hysterectomies.- Has issues with urination - strong stream plus has increased frequency. If she sits on the toilet long enough, will feel like she needs to pee again.- Has some pain with urination but does not really describe as burning- Wondering if her urinary symptoms are related to the pelvic mass- Follows with Urology, who says she has a very small bladder and is treating her with solifenacin Back pain- Has right-sided pain with movement- Thought she might've pulled something due to pain getting worse- Pain starts in right lower back and radiates down right leg BIRGIT JEFFERSON MD Attn: Accounting,[address] [place], [address], [facility] 07/19/2024 17:39:00 OBGyn Episode Ob Episode Information Episode Created Date Number of Fetuses Patient Bloodtype Patient rh Status Prepregnancy Weight lbs Domestic Partner Domestic Partner Phone Father Name Bearingizer Status 03/22/19 23 1 CLOSED Fetus Data First Name Last Name Admitted to NICU Weight (g) Sex Living Outcome Pediatric Complications Fetus ID Race Codes Race Delivery Type 2522.87 [id number] [place] [id number] Vaginal Bacilio Calculation Initial Bacilio Date Initial Exam Date Initial Exam Provider Initial Ultrasound Date Last Menstrual Period Date Ultra Sound Weeks Gestation 0 Eighteen To Twenty Week Bacilio Update Ultra Sound Date Fundal Height At Umbil Quickening Date Ultra Sound Latest Weeks Gestation Final Bacilio Confirmed By Final Bacilio Confirmed Date Final Bacilio Date Ultra Sound Latest Days Gestation 0 0 Menstrual History Last Menstrual Date Menses Monthly On Bcp Conception Prior Menses Frequency Hcg Plus Date Menarche Onset Age Delivery Information Delivery Date Delivery Type Labor Anesthesia Weeks Gestation Incision Type Labor Labor Length Hrs Delivered By Post Complications Tubal Sterilization Discharge Date Comments 1 Discharge Information Feeding Method Contraceptive Method Maternal HG B and HCT Levels Ob Episode Information Episode Created Date Number of Fetuses Patient Bloodtype Patient rh Status Prepregnancy Weight lbs Domestic Partner Domestic Partner Phone Father Name Bearingizer Status 03/22/19 23 1 CLOSED Fetus Data First Name Last Name Admitted to NICU Weight (g) Sex Living Outcome Pediatric Complications Fetus ID Race Codes Race Delivery Type 595.112 704 [place] [id number] Vaginal Bacilio Calculation Initial Bacilio Date Initial Exam Date Initial Exam Provider Initial Ultrasound Date Last Menstrual Period Date Ultra Sound Weeks Gestation 0 Eighteen To Twenty Week Bacilio Update Ultra Sound Date Fundal Height At Umbil Quickening Date Ultra Sound Latest Weeks Gestation Final Bacilio Confirmed By Final Bacilio Confirmed Date Final Bacilio Date Ultra Sound Latest Days Gestation 0 0 Menstrual History Last Menstrual Date Menses Monthly On Bcp Conception Prior Menses Frequency Hcg Plus Date Menarche Onset Age Delivery Information Delivery Date Delivery Type Labor Anesthesia Weeks Gestation Incision Type Labor Labor Length Hrs Delivered By Post Complications Tubal Sterilization Discharge Date Comments 0 Discharge Information Feeding Method Contraceptive Method Maternal HG B and HCT Levels Ob Episode Information Episode Created Date Number of Fetuses Patient Bloodtype Patient rh Status Prepregnancy Weight lbs Domestic Partner Domestic Partner Phone Father Name Bearingizer Status 03/22/19 23 1 CLOSED Fetus Data First Name Last Name Admitted to NICU Weight (g) Sex Living Outcome Pediatric Complications Fetus ID Race Codes Race Delivery Type [id number] M Prematur e [id number] Bacilio Calculation Initial Bacilio Date Initial Exam Date Initial Exam Provider Initial Ultrasound Date Last Menstrual Period Date Ultra Sound Weeks Gestation 0 Eighteen To Twenty Week Bacilio Update Ultra Sound Date Fundal Height At Umbil Quickening Date Ultra Sound Latest Weeks Gestation Final Bacilio Confirmed By Final Bacilio Confirmed Date Final Bcailio Date Ultra Sound Latest Days Gestation 0 0 Menstrual History Last Menstrual Date Menses Monthly On Bcp Conception Prior Menses Frequency Hcg Plus Date Menarche Onset Age Delivery Information Delivery Date Delivery Type Labor Anesthesia Weeks Gestation Incision Type Labor Labor Length Hrs Delivered By Post Complications Tubal Sterilization Discharge Date Comments 2 Discharge Information Feeding Method Contraceptive Method Maternal HG B and HCT Levels
--- OUTSIDE RECORDS SUMMARY | 2024-08-09 14:43 | XMS_ITS | Clinical Summary ---
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
--- OUTSIDE RECORDS SUMMARY | 2024-08-09 14:43 | XMS_ITS | Data Portability ---
Author Organization [facility] [employer], Main Office Address [address] [place] [address] Assessment No assessment recorded. Plan of Treatment Reminders Order Date Submit Date Provider Last Modified By Organization Details Last Modified Time Details Appointments None recorded. Lab None recorded. Referral None recorded. Procedures cystoscopy (PROC) 2022 023 [email or web address] Not available 4 08:10:00 Surgeries None recorded. Imaging US, bladder 2022 023 [email or web address] [facility], [id number], [address], 3 11:16:12 Medication Orders Cipro 500 mg tablet 2022 023 [email or web address] Not available 3 12:45:26 Patient TargetsNo targets recorded. Patient InstructionsNo instructions recorded. Reason for Referral None Reported. Results Created Date Observation Date Name Description Value Unit Range Abnormal Flag Note LastModifiedBy Organization Detail LastModifiedTime 10/05/19 22 10/11/2021 MISCE LLANE OUS TEST misc test see commen t SENT TO REFER ENCE LAB; SEE SEPAR ATE REPOR T Not Available [facility] (Lab) [address] [place], [address], 10/11/2021 09:35:06 10/05/19 22 10/05/2021 THYRO ID PEROX IDASE (TPO) AB thyroid peroxidase (tpo) Ab 15 IU/mL 0-34 Perfo rmed at: CB - [facility] [address] [address] Lab Direc tor: Marciano camarillo PhD, Phone : [phone] Not Available [facility] (Lab) [address] [place], [address], 10/05/2021 09:11:43 10/05/19 22 10/04/2021 HEMOG LOBIN A1C HA1C 5.6 % 4.0-6. 0 Diabe geetha Scree philipp Crite monae: <5.7% Consi stent with absen ce of diabe geetha 5.7-6 .4% Consi stent with incre ased risk for diabe geetha (pred iabet es) >OR=6 .5% Consi stent with diabe geetha REFER ENCE: Diabe geetha Care 2016, 39(Avery ppl.1 ):s13 -s22 Not Available [facility] (Lab) [address] [place], [address], 10/04/2021 21:32:38 10/05/19 22 10/04/2021 FOLAT E, SERUM /PLAS MA folate >20.0 NG/mL 2.76-2 0.0 Not Available [facility] (Lab) [address] [place], [address], 10/04/2021 15:22:49 10/05/19 22 10/04/2021 VITAM IN B12 (SE CON ) vb12 617 pg/mL 239-93 1 Not Available [facility] (Lab) [address] [place], [address], 10/04/2021 15:22:48 10/05/19 22 10/04/2021 TSH thyroid-stim ulating hormone 0.216 uIU/m L 0.465- 4.680 low Not Available [facility] (Lab) [address] [place], [address], 10/04/2021 14:49:15 10/05/19 22 10/04/2021 T3 FREE free T3 3.3 pg/mL 2.77-5 .27 Not Available [facility] (Lab) [address] [place], [address], 10/04/2021 14:36:48 10/05/19 22 10/04/2021 T4 FREE free T4 1.57 NG/dL 0.78-2 .19 Not Available [facility] (Lab) [address] [place], [address], 10/04/2021 14:36:42 10/05/19 22 10/04/2021 VITAM IN D 25-HY DROXY vd25oh 56.7 NG/mL 30-100 Vitam in D Statu s: Defic ient: <20 ng/mL Insuf ficie nt: 20-29 ng/mL Suffi cient : 30-10 0 ng/mL Not Available [facility] (Lab) [address] [place], [address], 10/04/2021 14:33:24 10/05/19 22 10/04/2021 IRON/ TIBC PANEL total iron binding capacity 308 mcg/d L 265-47 5 Not Available [facility] (Lab) [address] [place], [address], 10/04/2021 14:25:50 10/05/19 22 10/04/2021 IRON/ TIBC PANEL % transferrin saturation 30 % 20-55 Not Available [facility] (Lab) [address] [place], [address], 10/04/2021 14:25:50 10/05/19 22 10/04/2021 IRON/ TIBC PANEL unsaturated iron bind capacity 216 mcg/d L 126-38 2 Not Available [facility] (Lab) [address] [place], [address], 10/04/2021 14:25:50 10/05/19 22 10/04/2021 IRON/ TIBC PANEL iron 92 mcg/d L 42-175 Not Available [facility] (Lab) [address] [place], [address], 10/04/2021 14:25:50 10/05/19 22 10/04/2021 LIPID PANEL cholesterol 181 mg/dL 140-19 9 NIH LUMA NSUS RECOM MENDA TION FOR ETHAN STERO L: ADULT CHILD LOW RISK: <200 <170 BORDE RLINE : <200- 239 ----- HIGH RISK: >240 >200 Not Available [facility] (Lab) [address] [place], [address], 10/04/2021 14:20:18 10/05/19 22 10/04/2021 LIPID PANEL triglyceride s 160 mg/dL 0-150 high NIH LUMA NSUS REPOR T RECOM MENDA TION FOR TRIGL YCERI ELIZABETH: ADULT CHILD LOW RISK: <150 ----- BODER LINE: 150-1 99 ----- HIGH RISK: >200 ----- Not Available [facility] (Lab) [address] [place], [address], 10/04/2021 14:20:18 10/05/19 22 10/04/2021 LIPID PANEL HDL cholesterol 51 mg/dL 40- Not Available [facility] (Lab) [address] [place], [address], 10/04/2021 14:20:18 10/05/19 22 10/04/2021 LIPID PANEL [...] WILL NOT BE REPOR MYRNA. Not Available [facility] (Lab) [address] [place], [address], 10/04/2021 14:20:18 10/05/19 22 10/04/2021 COMPR EHENS MAYDA METAB OLIC PANEL sodium 139 mmol/ L 137-14 5 Not Available [facility] (Lab) [address] [place], [address], 10/04/2021 14:20:15 10/05/19 22 10/04/2021 COMPR EHENS MAYDA METAB OLIC PANEL potassium 3.9 mmol/ L 3.5-5. 1 Not Available [facility] (Lab) [address] [place], [address], 10/04/2021 14:20:15 10/05/19 22 10/04/2021 COMPR EHENS MAYDA METAB OLIC PANEL chloride 107 mmol/ L 98-107 Not Available [facility] (Lab) [address] [place], [address], 10/04/2021 14:20:15 10/05/19 22 10/04/2021 COMPR EHENS MAYDA METAB OLIC PANEL carbon dioxide 27 mmol/ L 22-30 Not Available [facility] (Lab) [address] [place], [address], 10/04/2021 14:20:15 10/05/19 22 10/04/2021 COMPR EHENS MAYDA METAB OLIC PANEL anion gap 8.9 mmol/ L 14-22 low Not Available [facility] (Lab) [address] [place], [address], 10/04/2021 14:20:15 10/05/19 22 10/04/2021 COMPR EHENS MAYDA METAB OLIC PANEL glucose 101 mg/dL 70-99 high Not Available [facility] (Lab) [address] [place], [address], 10/04/2021 14:20:15 10/05/19 22 10/04/2021 COMPR EHENS MAYDA METAB OLIC PANEL BUN 11 mg/dL 8-19 Not Available [facility] (Lab) [address] [place], [address], 10/04/2021 14:20:15 10/05/19 22 10/04/2021 COMPR EHENS MAYDA METAB OLIC PANEL creatinine 0.69 mg/dL 0.66-1 .25 Not Available [facility] (Lab) [address] [place], [address], 10/04/2021 14:20:15 10/05/19 22 10/04/2021 COMPR EHENS MAYDA METAB OLIC PANEL GFR >60 Refer ence Range : Banks ge GFR Healt hy Adult : >60 [...] or ethni c subgr oups, such as Hispr nics. Outsi de the valid ated mena [...] s/kdo qi/gf r_cal culat or Not Available [facility] (Lab) [address] [place], [address], 10/04/2021 14:20:15 10/05/19 22 10/04/2021 COMPR EHENS MAYDA METAB OLIC PANEL alkaline phosphatase 81 U/L 38-126 Not Available [facility] (Lab) [address] [place], [address], 10/04/2021 14:20:15 10/05/19 22 10/04/2021 COMPR EHENS MAYDA METAB OLIC PANEL alanine aminotransfe rase 26 U/L 0-35 Not Available [facility] (Lab) [address] [place], [address], 10/04/2021 14:20:15 10/05/19 22 10/04/2021 COMPR EHENS MAYDA METAB OLIC PANEL aspartate aminotransfe rase 31 U/L 15-37 Not Available [facility] (Lab) [address] [place], [address], 10/04/2021 14:20:15 10/05/19 22 10/04/2021 COMPR EHENS MAYDA METAB OLIC PANEL bilirubin, total 0.80 mg/dL 0.20-1 .30 Not Available [facility] (Lab) [address] [place], [address], 10/04/2021 14:20:15 10/05/19 22 10/04/2021 COMPR EHENS MAYDA METAB OLIC PANEL calcium 9.1 mg/dL 8.4-10 .2 Not Available [facility] (Lab) [address] [place], [address], 10/04/2021 14:20:15 10/05/19 22 10/04/2021 COMPR EHENS MAYDA METAB OLIC PANEL total protein 6.9 g/dL 6.3-8. 2 Not Available [facility] (Lab) [address] [place], [address], 10/04/2021 14:20:15 10/05/19 22 10/04/2021 COMPR EHENS MAYDA METAB OLIC PANEL albumin 4.1 g/dL 3.4-5. 0 Not Available [facility] (Lab) [address] [place], [address], 10/04/2021 14:20:15 10/05/19 22 10/04/2021 COMPR EHENS MAYDA METAB OLIC PANEL globulin 2.8 g/dL 2.6-4. 2 Not Available [facility] (Lab) [address] [place], [address], 10/04/2021 14:20:15 10/05/19 22 10/04/2021 COMPR EHENS MAYDA METAB OLIC PANEL A/G ratio 1.5 ratio 1.0-2. 0 Not Available [facility] (Lab) [address] [place], [address], 10/04/2021 14:20:15 10/05/19 22 10/04/2021 CBC/C OMPLE TE BLD COUNT W/DIF F white blood cells 3.4 x10'3 /uL 4.2-10 .8 low Not Available [facility] (Lab) [address] [place], [address], 10/04/2021 13:56:21 10/05/19 22 10/04/2021 CBC/C OMPLE TE BLD COUNT W/DIF F red blood cells 4.75 x10'6 /uL 3.80-5 .20 Not Available [facility] (Lab) [address] [place], [address], 10/04/2021 13:56:21 10/05/19 22 10/04/2021 CBC/C OMPLE TE BLD COUNT W/DIF F hemoglobin 13.8 g/dL 12.0-1 5.6 Not Available [facility] (Lab) [address] [place], [address], 10/04/2021 13:56:21 10/05/19 22 10/04/2021 CBC/C OMPLE TE BLD COUNT W/DIF F hematocrit 42.8 % 35.7-4 5.7 Not Available [facility] (Lab) [address] [place], [address], 10/04/2021 13:56:21 10/05/19 22 10/04/2021 CBC/C OMPLE TE BLD COUNT W/DIF F mean red cell volume 90.1 fL 82.0-9 9.0 Not Available [facility] (Lab) [address] [place], [address], 10/04/2021 13:56:21 10/05/19 22 10/04/2021 CBC/C OMPLE TE BLD COUNT W/DIF F mean red cell hemoglobin 29.1 pg 27.0-3 3.0 Not Available [facility] (Lab) [address] [place], [address], 10/04/2021 13:56:21 10/05/19 22 10/04/2021 CBC/C OMPLE TE BLD COUNT W/DIF F mean RBC HGB concentratio n 32.2 g/dL 31.0-3 6.0 Not Available [facility] (Lab) [address] [place], [address], 10/04/2021 13:56:21 10/05/19 22 10/04/2021 CBC/C OMPLE TE BLD COUNT W/DIF F red cell distribution width 13.2 % 11.8-1 5.5 Not Available [facility] (Lab) [address] [place], [address], 10/04/2021 13:56:21 10/05/19 22 10/04/2021 CBC/C OMPLE TE BLD COUNT W/DIF F platelets 171 x10'3 /uL 150-40 0 Not Available [facility] (Lab) [address] [place], [address], 10/04/2021 13:56:21 10/05/19 22 10/04/2021 CBC/C OMPLE TE BLD COUNT W/DIF F mean platelet volume 10.5 fL 9.0-12 .4 Not Available [facility] (Lab) [address] [place], [address], 10/04/2021 13:56:21 10/05/19 22 10/04/2021 CBC/C OMPLE TE BLD COUNT W/DIF F neutrophils 42.0 % 39.0-7 2.0 Not Available [facility] (Lab) [address] [place], [address], 10/04/2021 13:56:21 10/05/19 22 10/04/2021 CBC/C OMPLE TE BLD COUNT W/DIF F lymphocytes 41.3 % 16.0-4 7.0 Not Available [facility] (Lab) [address] [place], [address], 10/04/2021 13:56:21 10/05/19 22 10/04/2021 CBC/C OMPLE TE BLD COUNT W/DIF F monocytes 10.8 % 5.0-12 .0 Not Available [facility] (Lab) [address] [place], [address], 10/04/2021 13:56:21 10/05/19 22 10/04/2021 CBC/C OMPLE TE BLD COUNT W/DIF F eosinophils 4.7 % 1.0-7. 0 Not Available [facility] (Lab) [address] [place], [address], 10/04/2021 13:56:21 10/05/19 22 10/04/2021 CBC/C OMPLE TE BLD COUNT W/DIF F basophils 0.9 % 0.0-2. 0 Not Available [facility] (Lab) [address] [place], [address], 10/04/2021 13:56:21 10/05/19 22 10/04/2021 CBC/C OMPLE TE BLD COUNT W/DIF F immature granulocytes 0.3 % 0.00-0 .50 Not Available [facility] (Lab) [address] [place], [address], 10/04/2021 13:56:21 10/05/19 22 10/04/2021 CBC/C OMPLE TE BLD COUNT W/DIF F neutrophils, absolute count 1.45 x10'3 /uL 1.5-8. 0 low Not Available [facility] (Lab) [address] [place], [address], 10/04/2021 13:56:21 10/05/19 22 10/04/2021 CBC/C OMPLE TE BLD COUNT W/DIF F lymphocytes, absolute count 1.42 x10'3 /uL 1.07-3 .43 Not Available [facility] (Lab) [address] [place], [address], 10/04/2021 13:56:21 10/05/19 22 10/04/2021 CBC/C OMPLE TE BLD COUNT W/DIF F monocytes, absolute count 0.37 x10'3 /uL 0.29-0 .99 Not Available [facility] (Lab) [address] [place], [address], 10/04/2021 13:56:21 10/05/19 22 10/04/2021 CBC/C OMPLE TE BLD COUNT W/DIF F eosinophils, absolute count 0.16 x10'3 /uL 0.02-0 .53 Not Available [facility] (Lab) [address] [place], [address], 10/04/2021 13:56:21 10/05/19 22 10/04/2021 CBC/C OMPLE TE BLD COUNT W/DIF F basophils, absolute count 0.03 x10'3 /uL 0.01-0 .08 Not Available [facility] (Lab) [address] [place], [address], 10/04/2021 13:56:21 10/05/19 22 10/04/2021 CBC/C OMPLE TE BLD COUNT W/DIF F immature granulocytes ,absolute 0.01 x10'3 /uL 0.00-0 .05 Not Available [facility] (Lab) [address] [place], [address], 10/04/2021 13:56:21 10/05/19 22 10/04/2021 CBC/C OMPLE TE BLD COUNT W/DIF F nucleated red blood cells 0.0 % -0 Not Available [facility] (Lab) [address] [place], [address], 10/04/2021 13:56:21 10/05/19 22 10/04/2021 CBC/C OMPLE TE BLD COUNT W/DIF F NRBC# 0.00 x10'3 /uL Not Available [facility] (Lab) [address] [place], [address], 10/04/2021 13:56:21 01/26/20 22 01/31/2022 MISCE LLANE OUS TEST misc test see commen t SENT TO REFER ENCE LAB; SEE SEPAR ATE REPOR T Not Available [facility] (Lab) [address] [place], [address], 01/31/2022 09:47:27 01/26/20 22 01/25/2022 HEMOG LOBIN A1C HA1C 5.3 % 4.0-6. 0 Diabe geetha Scree philipp Crite monae: <5.7% Consi stent with absen ce of diabe geetha 5.7-6 .4% Consi stent with incre ased risk for diabe geetha (pred iabet es) >OR=6 .5% Consi stent with diabe geetha REFER ENCE: Diabe geetha Care 2015, 39(Avery ppl.1 ):s13 -s22 Not Available [facility] (Lab) [address] [place], [address], 01/25/2022 14:43:43 01/26/20 22 01/25/2022 TSH thyroid-stim ulating hormone 5.260 uIU/m L 0.465- 4.680 high Not Available [facility] (Lab) [address] [place], [address], 01/25/2022 12:07:14 01/26/20 22 01/25/2022 T3 FREE free T3 3.0 pg/mL 2.77-5 .27 Not Available [facility] (Lab) [address] [place], [address], 01/25/2022 11:51:13 01/26/20 22 01/25/2022 T4 FREE free T4 1.39 NG/dL 0.78-2 .19 Not Available [facility] (Lab) [address] [place], [address], 01/25/2022 11:51:09 01/26/20 22 01/25/2022 COMPR EHENS MAYDA METAB OLIC PANEL aspartate aminotransfe rase 26 U/L 15-37 Not Available [facility] (Lab) [address] [place], [address], 01/25/2022 11:50:00 01/26/20 22 01/25/2022 COMPR EHENS MAYDA METAB OLIC PANEL bilirubin, total 0.80 mg/dL 0.20-1 .30 Not Available [facility] (Lab) [address] [place], [address], 01/25/2022 11:50:00 01/26/20 22 01/25/2022 COMPR EHENS MAYDA METAB OLIC PANEL calcium 9.5 mg/dL 8.4-10 .2 Not Available [facility] (Lab) [address] [place], [address], 01/25/2022 11:50:00 01/26/20 22 01/25/2022 COMPR EHENS MAYDA METAB OLIC PANEL total protein 7.2 g/dL 6.3-8. 2 Not Available [facility] (Lab) [address] [place], [address], 01/25/2022 11:50:00 01/26/20 22 01/25/2022 COMPR EHENS MAYDA METAB OLIC PANEL albumin 4.2 g/dL 3.4-5. 0 Not Available [facility] (Lab) [address] [facility] [place], [address], 01/25/2022 11:50:00 01/26/20 22 01/25/2022 COMPR EHENS MAYDA METAB OLIC PANEL globulin 3.0 g/dL 2.6-4. 2 Not Available [facility] (Lab) [address] [place], [address], 01/25/2022 11:50:00 01/26/20 22 01/25/2022 COMPR EHENS MAYDA METAB OLIC PANEL A/G ratio 1.4 ratio 1.0-2. 0 Not Available [facility] (Lab) [address] [place], [address], 01/25/2022 11:50:00 01/26/20 22 01/25/2022 COMPR EHENS MAYDA METAB OLIC PANEL sodium 140 mmol/ L 137-14 5 Not Available [facility] (Lab) [address] [place], [address], 01/25/2022 11:50:00 01/26/20 22 01/25/2022 COMPR EHENS MAYDA METAB OLIC PANEL potassium 4.4 mmol/ L 3.5-5. 1 Not Available [facility] (Lab) [address] [place], [address], 01/25/2022 11:50:00 01/26/20 22 01/25/2022 COMPR EHENS MAYDA METAB OLIC PANEL chloride 104 mmol/ L 98-107 Not Available [facility] (Lab) [address] [place], [address], 01/25/2022 11:50:00 01/26/20 22 01/25/2022 COMPR EHENS MAYDA METAB OLIC PANEL carbon dioxide 29 mmol/ L 22-30 Not Available [facility] (Lab) [address] [place], [address], 01/25/2022 11:50:00 01/26/20 22 01/25/2022 COMPR EHENS MAYDA METAB OLIC PANEL anion gap 11.4 mmol/ L 14-22 low Not Available [facility] (Lab) [address] [place], [address], 01/25/2022 11:50:00 01/26/20 22 01/25/2022 COMPR EHENS MAYDA METAB OLIC PANEL glucose 92 mg/dL 70-99 Not Available [facility] (Lab) [address] [place], [address], 01/25/2022 11:50:00 01/26/20 22 01/25/2022 COMPR EHENS MAYDA METAB OLIC PANEL BUN 10 mg/dL 8-19 Not Available [facility] (Lab) [address] [place], [address], 01/25/2022 11:50:00 01/26/20 22 01/25/2022 COMPR EHENS MAYDA METAB OLIC PANEL creatinine 0.74 mg/dL 0.66-1 .25 Not Available [facility] (Lab) [address] [place], [address], 01/25/2022 11:50:00 01/26/20 22 01/25/2022 COMPR EHENS MAYDA METAB OLIC PANEL GFR >60 Refer ence Range : Banks ge GFR Healt hy Adult : >60 [...] calcu lator is avail able on the [facility] websi te: [email or web address] :[email or web address] ional s/kdo qi/gf r_cal culat or Not Available [facility] (Lab) [address] [place], [address], 01/25/2022 11:50:00 01/26/20 22 01/25/2022 COMPR EHENS MAYDA METAB OLIC PANEL alkaline phosphatase 84 U/L 38-126 Not Available [facility] (Lab) [address] [place], [address], 01/25/2022 11:50:00 01/26/20 22 01/25/2022 COMPR EHENS MAYDA METAB OLIC PANEL alanine aminotransfe rase 19 U/L 0-35 Not Available [facility] (Lab) [address] [place], [address], 01/25/2022 11:50:00 09/02/19 23 09/01/2022 US, bladd er No observ ation record ed. [email or web address] [address] [facility] [address], [place], [address], 09/08/2022 08:27:41 06/21/19 25 06/20/2024 imagi ng/di agnos tic resul t No observ ation record ed. [facility] [address], [place], [address], 06/20/2024 15:35:13 Result Notes None recorded. Problems Name Problem SNOMED Code Status Onset Date Resolution Date Notes Provider Name and Address Organization Details Recorded Time Dyspnea 265654532 Active Not Available [facility] 3 18:20:43 Vitamin D deficiency 21638058 Active 2021 Not Available [facility] 3 18:20:43 Hypothyroidis m 24653363 Active 2021 Not Available [facility] 3 18:20:43 Pulmonary embolism 90853828 Active Not Available [facility] 3 18:20:44 Prediabetes 483668162 Active 2021 Not Available [facility] 3 18:20:44 Obstructive sleep apnea syndrome 05736695 Active Not Available [facility] 3 18:20:44 Urinary incontinence 607174649 Active 2022 Marilyn Coronado MA [facility] [place] [employer] [facility] [employer] 10:49:04 Problem Notes None recorded. Procedures Surgical History Date Name Laterality Status Provider Name and Address Organization Details Recorded Time 11/11/19 Cystoscopy (female) completed Andrzej Ayala MD [address], [place], [address], [facility] [employer] 11/10/2022 10:44:05 06/24/19 Colonoscopy completed Not Available [facility] 05/19/19 18:20:10 thyroidectomy completed Not Available [facility] 05/18/2022 18:20:10 Imaging Results Imaging Date Name Status LastModified by Organiz ation Details LastModified Time 09/01/2022 US, bladder completed [email or web address] [facility] [address] [facility] [address], [place], [address], 09/08/2022 08:27:41 06/20/2024 imaging/diag nostic result active [facility] [address], [place], [address], 06/20/2024 15:35:13 Procedure Notes None recorded. Medical Equipment None Reported. Allergies Allergen ID Allergen Name Allergen Category Reaction Reaction Severity Criticality Documentation Date Start Date Code Code System Note Provider Name and Address Organization Details Recorded Time 96179 codeine medicatio n vomiting Not available Not available 05/18/2022 2670 RxNorm Not Available [facility] 18:22:18 Medications Name Sig Start Date Stop [...] % 100 % 84 /min 98 [degF] 918539. 04 g 150 mm[Hg] 100 mm[Hg] Not Available [facility] 3 18:20:15 Date Recorded Body height Heart rate Body temperature Oxygen saturation Oxygen saturation in Arterial blood by Pulse oximetry Systolic blood pressure Diastolic blood pressure Provider Name and Address Organization Details Last Updated DateTime 3 167.64 cm 80 /min 98.7 [degF] 96 % 96 % 173 mm[Hg] 105 mm[Hg] Marilyn Coronado MA [employer] 3 10:44:52 Date Recorded Body weight Provider Name an d Address Organization Details Last Updated DateTime 09/01/2022 867176.38 g ROMMEL Campbell [email or web address] [facility] [employer] 09/01/2022 10:47:10 Date Recorded Body height Provider Name an d Address Organization Details Last Updated DateTime 11/10/2022 167.64 cm Marilyn Coronado MA [email or web address] [facility] [employer] 11/10/2022 10:05:31 Social History Question Answer Notes LastModified by Organizat ion Details LastModified Time Tobacco Smoking Status Former Smoker Quit 5 yrs ago Not Available [facility] 05/18/2022 18:20:04 What Is Your Level Of Caffeine Consumption? Heavy [id number] Information not available 05/18/2022 When Did You Quit Smoking? 1-5yearssin celastcistephane ette Information not available 09/01/2022 What Is Your Relationship Status? [id number] Information not available 05/18/2022 Has Tobacco Cessation Counseling Been Provided? No Information not available 09/01/2022 Sex: Female Functional Status Question Answer Note LastModified by Organizat ion Details LastModified Time Do you use any illicit or recreational drugs? No Information not available 09/01/2022 Do you or have you ever used any other forms of tobacco or nicotine? No Information not available 09/01/2022 What is your level of alcohol consumption? 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 Family History Relationship Description Onset Age of this Age Resolved Age Notes LastModified by Organization Details LastModified Time Unspecified Relation Heart disease Not available 2022 10:46:14 Unspecified Relation Hypertensive disorder Not available 2022 10:46:27 Unspecified Relation Malignant neoplasm of urinary bladder Not available 2022 10:46:37 Medical History Condition Response DIABETES, TYPE Y HIGH CHOLESTEROL / HYPERLIPIDEMIA Y BLOOD CLOTS Y HEADACHES/MIGRAINES Y HYPERTENSION Y OBESITY Y Gynecological HistoryNo gynecological history recorded. Obstetrics History GPAL:G 0 P 0 0 0 0 Past Encounters Encounter ID Performer Location Encounter Start Date Encounter Closed Date Diagnosis/Indication Diagnosis SNOMED-CT Code Diagnosis ICD10 Code Diagnosis Note [id number] Yamila Luna MD _[facility] IGR[facility]_ DEFAULT_1 _1 , 07/08/2021 00:00:00 07/08/2021 09:45:34 [id number] MD ANNE Conde_[facility] [facility] [place] [address] [place] [address] 10/12/2021 00:00:00 10/12/2021 10:08:29 [id number] MD ANNE [facility] [id number] [place] [address] 09/01/2022 10:09:56 09/01/2022 11:16:12 Urinary incontinence [id number] R32 Patient given informatio n on urinary incontinen ce and treatment. Will proceed with testing. cysto and Urodynamic s. [id number] Andrzej Ayala MD [facility] [address] [facility] [address] [place] [address] 11/10/2022 09:53:30 11/10/2022 10:46:00 Urinary incontinence [id number] R32 findings c/w [facility] .follow up Health Concerns Section Related Observation LastModified by Organization Detai ls LastModified Time None Recorded Concern Status LastModified by Organization Details LastModified Time None Recorded Advance Directives Directive None Recorded Payers Encounter Date Sequence Insurance Name Policy Number Policy Vivas Covered Member ID Vivas Member ID Guarantor Name 09/01/2022 1 [facility] (MEDICARE REPLACEMENT/A DVANTAGE - HMO) [id number] Nory Johansen [id number] Nory Johansen 11/10/2022 1 [facility] (MEDICARE REPLACEMENT/A DVANTAGE - HMO) [id number] Nory Johansen [id number] Nory Johansen Notes Date Note Type Note Provider Name and Address Organization Details Recorded Time 09/01/2022 text/html 61 yo female wit h urinary incontinence both stress and urge. She wears depends. She has one daughter born vaginally. No retention, recurrent uti's or kidney problems. Has multiple medical problems with morbid obesity, DM, recurrent PE s, hypothyroid, lung disease. Andrzej Ayala MD [address] [facility], [address], [place], [address], [facility] 09/01/2022 11:14:56 OBGyn Episode No OBEpisode recorded.
== END 2024-08-09 14:38 | disposition home or self-care (01) ==
PROVIDERS: PCP Family Medicine; Visit Provider Obstetrics & Gynecology
DX: R19.00 Intra-abdominal and pelvic swelling, mass and lump, unspecified site (principal); N83.202 Unspecified ovarian cyst, left side
CPT/HCPCS: 76830; 76856

== ENCOUNTER 2024-08-14 09:34 | Outpatient (CLI) | payer MEDICARE, SELFPAY ==
--- OUTSIDE RECORDS SUMMARY | 2024-08-14 09:39 | XMS_ITS | Data Portability ---
Author Organization [facility] [employer], Main Office Address [address] [place] [address] Assessment No assessment recorded. Plan of Treatment Reminders Order Date Submit Date Provider Last Modified By Organization Details Last Modified Time Details Appointments None recorded. Lab None recorded. Referral None recorded. Procedures cystoscopy (PROC) 2022 023 [email or web address] Not available 4 08:10:00 Surgeries None recorded. Imaging US, bladder 2022 023 [email or web address] [facility], [id number], [place], [address], 3 11:16:12 Medication Orders Cipro 500 mg tablet 2022 023 [email or web address] Not available 3 12:45:26 Patient TargetsNo targets recorded. Patient InstructionsNo instructions recorded. Reason for Referral None Reported. Results Created Date Observation Date Name Description Value Unit Range Abnormal Flag Note LastModifiedBy Organization Detail LastModifiedTime 10/05/19 22 10/11/2021 MISCE LLANE OUS TEST misc test see commen t SENT TO REFER ENCE LAB; SEE SEPAR ATE REPOR T Not Available [facility] (Lab) [address] [place], [address], 10/11/2021 09:35:06 10/05/19 22 10/05/2021 THYRO ID PEROX IDASE (TPO) AB thyroid peroxidase (tpo) Ab 15 IU/mL 0-34 Perfo rmed at: CB [facility] [address] [address] Lab Direc tor: Marciano camarillo PhD, Phone : [phone] Not Available [facility] (Lab) [address] [place], [address], 10/05/2021 09:11:43 10/05/19 22 10/04/2021 HEMOG LOBIN A1C HA1C 5.6 % 4.0-6. 0 Diabe geetha Scree philipp Crite monae: <5.7% Consi stent with absen ce of diabe geetha 5.7-6 .4% Consi stent with incre ased risk for diabe geetha (pred iabet es) >OR=6 .5% Consi stent with diabe geetha REFER ENCE: Diabe geetha Care 2016, 39(Avery ppl.1 ):s13 -s22 Not Available [facility] (Lab) [address] [place], [address], 10/04/2021 21:32:38 10/05/19 22 10/04/2021 FOLAT E, SERUM /PLAS MA folate >20.0 NG/mL 2.76-2 0.0 Not Available [facility] (Lab) [address] [place], [address], 10/04/2021 15:22:49 10/05/19 22 10/04/2021 VITAM IN B12 (SE CON ) vb12 617 pg/mL 239-93 1 Not Available [facility] (Lab) [address] [place], [address], 10/04/2021 15:22:48 10/05/19 22 10/04/2021 TSH thyroid-stim ulating hormone 0.216 uIU/m L 0.465- 4.680 low Not Available [facility] (Lab) [address] [place], [address], 10/04/2021 14:49:15 10/05/19 22 10/04/2021 T3 FREE free T3 3.3 pg/mL 2.77-5 .27 Not Available [facility] (Lab) [address] [place], [address], 10/04/2021 14:36:48 10/05/19 22 10/04/2021 T4 FREE free T4 1.57 NG/dL 0.78-2 .19 Not Available [facility] (Lab) [address] [place], [address], 10/04/2021 14:36:42 10/05/19 22 10/04/2021 VITAM IN D 25-HY DROXY vd25oh 56.7 NG/mL 30-100 Vitam in D Statu s: Defic ient: <20 ng/mL Insuf ficie nt: 20-29 ng/mL Suffi cient : 30-10 0 ng/mL Not Available [facility] (Lab) [address] [place], [address], 10/04/2021 14:33:24 10/05/19 22 10/04/2021 IRON/ TIBC PANEL total iron binding capacity 308 mcg/d L 265-47 5 Not Available [facility] (Lab) [address] [place], [address], 10/04/2021 14:25:50 10/05/19 22 10/04/2021 IRON/ TIBC PANEL % transferrin saturation 30 % 20-55 Not Available [facility] (Lab) [address] [place], [address], 10/04/2021 14:25:50 10/05/19 22 10/04/2021 IRON/ TIBC PANEL unsaturated iron bind capacity 216 mcg/d L 126-38 2 Not Available [facility] (Lab) [address] [place], [address], 10/04/2021 14:25:50 10/05/19 22 10/04/2021 IRON/ TIBC PANEL iron 92 mcg/d L 42-175 Not Available [facility] (Lab) [address] [place], [address], 10/04/2021 14:25:50 10/05/19 22 10/04/2021 LIPID PANEL cholesterol 181 mg/dL 140-19 9 NIH LUMA NSUS RECOM MENDA TION FOR ETHAN STERO L: ADULT CHILD LOW RISK: <200 <170 BORDE RLINE : <200- 239 ----- HIGH RISK: >240 >200 Not Available [facility] (Lab) [address] [place], [address], 10/04/2021 14:20:18 10/05/19 22 10/04/2021 LIPID PANEL triglyceride s 160 mg/dL 0-150 high NIH LUMA NSUS REPOR T RECOM MENDA TION FOR TRIGL YCERI ELIZABETH: ADULT CHILD LOW RISK: <150 ----- BODER LINE: 150-1 99 ----- HIGH RISK: >200 ----- Not Available [facility] (Lab) [address] [place], [address], 10/04/2021 14:20:18 10/05/19 22 10/04/2021 LIPID PANEL HDL cholesterol 51 mg/dL 40- Not Available [facility] [place] (Lab) [address] [place], [address], 10/04/2021 14:20:18 10/05/19 22 10/04/2021 LIPID PANEL [...] WILL NOT BE REPOR MYRNA. Not Available [facility] (Lab) [address] [place], [address], 10/04/2021 14:20:18 10/05/19 22 10/04/2021 COMPR EHENS MAYDA METAB OLIC PANEL sodium 139 mmol/ L 137-14 5 Not Available [facility] (Lab) [address] [place], [address], 10/04/2021 14:20:15 10/05/19 22 10/04/2021 COMPR EHENS MAYDA METAB OLIC PANEL potassium 3.9 mmol/ L 3.5-5. 1 Not Available [facility] (Lab) [address] [place], [address], 10/04/2021 14:20:15 10/05/19 22 10/04/2021 COMPR EHENS MAYDA METAB OLIC PANEL chloride 107 mmol/ L 98-107 Not Available [facility] (Lab) [address] [place], [address], 10/04/2021 14:20:15 10/05/19 22 10/04/2021 COMPR EHENS MAYDA METAB OLIC PANEL carbon dioxide 27 mmol/ L 22-30 Not Available [facility] (Lab) [address] [place], [address], 10/04/2021 14:20:15 10/05/19 22 10/04/2021 COMPR EHENS MAYDA METAB OLIC PANEL anion gap 8.9 mmol/ L 14-22 low Not Available [facility] (Lab) [address] [place], [address], 10/04/2021 14:20:15 10/05/19 22 10/04/2021 COMPR EHENS MAYDA METAB OLIC PANEL glucose 101 mg/dL 70-99 high Not Available [facility] (Lab) [address] [place], [address], 10/04/2021 14:20:15 10/05/19 22 10/04/2021 COMPR EHENS MAYDA METAB OLIC PANEL BUN 11 mg/dL 8-19 Not Available [facility] (Lab) [address] [place], [address], 10/04/2021 14:20:15 10/05/19 22 10/04/2021 COMPR EHENS MAYDA METAB OLIC PANEL creatinine 0.69 mg/dL 0.66-1 .25 Not Available [facility] (Lab) [address] [place], [address], 10/04/2021 14:20:15 10/05/19 22 10/04/2021 COMPR EHENS MAYDA METAB OLIC PANEL GFR >60 Refer ence Range : Harwood ge GFR Healt hy Adult : >60 [...] or ethni c subgr oups, such as Hisnh nics. Outsi de the valid ated mena [...] s/kdo qi/gf r_cal culat or Not Available [facility] (Lab) [address] [place], [address], 10/04/2021 14:20:15 10/05/19 22 10/04/2021 COMPR EHENS MAYDA METAB OLIC PANEL alkaline phosphatase 81 U/L 38-126 Not Available [facility] [place] (Lab) [address] [place], [address], 10/04/2021 14:20:15 10/05/19 22 10/04/2021 COMPR EHENS MAYDA METAB OLIC PANEL alanine aminotransfe rase 26 U/L 0-35 Not Available [facility] (Lab) [address] [place], [address], 10/04/2021 14:20:15 10/05/19 22 10/04/2021 COMPR EHENS MAYDA METAB OLIC PANEL aspartate aminotransfe rase 31 U/L 15-37 Not Available [facility] (Lab) [address] [place], [address], 10/04/2021 14:20:15 10/05/19 22 10/04/2021 COMPR EHENS MAYDA METAB OLIC PANEL bilirubin, total 0.80 mg/dL 0.20-1 .30 Not Available [facility] (Lab) [address] [place], [address], 10/04/2021 14:20:15 10/05/19 22 10/04/2021 COMPR EHENS MAYDA METAB OLIC PANEL calcium 9.1 mg/dL 8.4-10 .2 Not Available [facility] (Lab) [address] [place], [address], 10/04/2021 14:20:15 10/05/19 22 10/04/2021 COMPR EHENS MAYDA METAB OLIC PANEL total protein 6.9 g/dL 6.3-8. 2 Not Available [facility] (Lab) [address] [place], [address], 10/04/2021 14:20:15 10/05/19 22 10/04/2021 COMPR EHENS MAYDA METAB OLIC PANEL albumin 4.1 g/dL 3.4-5. 0 Not Available [facility] (Lab) [address] [place], [address], 10/04/2021 14:20:15 10/05/19 22 10/04/2021 COMPR EHENS MAYDA METAB OLIC PANEL globulin 2.8 g/dL 2.6-4. 2 Not Available [facility] (Lab) [address] [place], [address], 10/04/2021 14:20:15 10/05/19 22 10/04/2021 COMPR EHENS MAYDA METAB OLIC PANEL A/G ratio 1.5 ratio 1.0-2. 0 Not Available [facility] (Lab) [address] [place], [address], 10/04/2021 14:20:15 10/05/19 22 10/04/2021 CBC/C OMPLE TE BLD COUNT W/DIF F white blood cells 3.4 x10'3 /uL 4.2-10 .8 low Not Available [facility] (Lab) [address] [place], [address], 10/04/2021 13:56:21 10/05/19 22 10/04/2021 CBC/C OMPLE TE BLD COUNT W/DIF F red blood cells 4.75 x10'6 /uL 3.80-5 .20 Not Available [facility] (Lab) [address] [place], [address], 10/04/2021 13:56:21 10/05/19 22 10/04/2021 CBC/C OMPLE TE BLD COUNT W/DIF F hemoglobin 13.8 g/dL 12.0-1 5.6 Not Available [facility] (Lab) [address] [place], [address], 10/04/2021 13:56:21 10/05/19 22 10/04/2021 CBC/C OMPLE TE BLD COUNT W/DIF F hematocrit 42.8 % 35.7-4 5.7 Not Available [facility] (Lab) [address] [place], [address], 10/04/2021 13:56:21 10/05/19 22 10/04/2021 CBC/C OMPLE TE BLD COUNT W/DIF F mean red cell volume 90.1 fL 82.0-9 9.0 Not Available [facility] (Lab) [address] [place], [address], 10/04/2021 13:56:21 10/05/19 22 10/04/2021 CBC/C OMPLE TE BLD COUNT W/DIF F mean red cell hemoglobin 29.1 pg 27.0-3 3.0 Not Available [facility] (Lab) [address] [place], [address], 10/04/2021 13:56:21 10/05/19 22 10/04/2021 CBC/C OMPLE TE BLD COUNT W/DIF F mean RBC HGB concentratio n 32.2 g/dL 31.0-3 6.0 Not Available [facility] (Lab) [address] [place], [address], 10/04/2021 13:56:21 10/05/19 22 10/04/2021 CBC/C OMPLE TE BLD COUNT W/DIF F red cell distribution width 13.2 % 11.8-1 5.5 Not Available [facility] (Lab) [address] [place], [address], 10/04/2021 13:56:21 10/05/19 22 10/04/2021 CBC/C OMPLE TE BLD COUNT W/DIF F platelets 171 x10'3 /uL 150-40 0 Not Available [facility] (Lab) [address] [place], [address], 10/04/2021 13:56:21 10/05/19 22 10/04/2021 CBC/C OMPLE TE BLD COUNT W/DIF F mean platelet volume 10.5 fL 9.0-12 .4 Not Available [facility] (Lab) [address] [place], [address], 10/04/2021 13:56:21 10/05/19 22 10/04/2021 CBC/C OMPLE TE BLD COUNT W/DIF F neutrophils 42.0 % 39.0-7 2.0 Not Available [facility] (Lab) [address] [place], [address], 10/04/2021 13:56:21 10/05/19 22 10/04/2021 CBC/C OMPLE TE BLD COUNT W/DIF F lymphocytes 41.3 % 16.0-4 7.0 Not Available [facility] (Lab) [address] [place], [address], 10/04/2021 13:56:21 10/05/19 22 10/04/2021 CBC/C OMPLE TE BLD COUNT W/DIF F monocytes 10.8 % 5.0-12 .0 Not Available [facility] (Lab) [address] [place], [address], 10/04/2021 13:56:21 10/05/19 22 10/04/2021 CBC/C OMPLE TE BLD COUNT W/DIF F eosinophils 4.7 % 1.0-7. 0 Not Available [facility] (Lab) [address] [place], [address], 10/04/2021 13:56:21 10/05/19 22 10/04/2021 CBC/C OMPLE TE BLD COUNT W/DIF F basophils 0.9 % 0.0-2. 0 Not Available [facility] (Lab) [address] [place], [address], 10/04/2021 13:56:21 10/05/19 22 10/04/2021 CBC/C OMPLE TE BLD COUNT W/DIF F immature granulocytes 0.3 % 0.00-0 .50 Not Available [facility] (Lab) [address] [place], [address], 10/04/2021 13:56:21 10/05/19 22 10/04/2021 CBC/C OMPLE TE BLD COUNT W/DIF F neutrophils, absolute count 1.45 x10'3 /uL 1.5-8. 0 low Not Available [facility] (Lab) [address] [place], [address], 10/04/2021 13:56:21 10/05/19 22 10/04/2021 CBC/C OMPLE TE BLD COUNT W/DIF F lymphocytes, absolute count 1.42 x10'3 /uL 1.07-3 .43 Not Available [facility] (Lab) [address] [place], [address], 10/04/2021 13:56:21 10/05/19 22 10/04/2021 CBC/C OMPLE TE BLD COUNT W/DIF F monocytes, absolute count 0.37 x10'3 /uL 0.29-0 .99 Not Available [facility] (Lab) [address] [place], [address], 10/04/2021 13:56:21 10/05/19 22 10/04/2021 CBC/C OMPLE TE BLD COUNT W/DIF F eosinophils, absolute count 0.16 x10'3 /uL 0.02-0 .53 Not Available [facility] (Lab) [address] [place], [address], 10/04/2021 13:56:21 10/05/19 22 10/04/2021 CBC/C OMPLE TE BLD COUNT W/DIF F basophils, absolute count 0.03 x10'3 /uL 0.01-0 .08 Not Available [facility] (Lab) [address] [place], [address], 10/04/2021 13:56:21 10/05/19 22 10/04/2021 CBC/C OMPLE TE BLD COUNT W/DIF F immature granulocytes ,absolute 0.01 x10'3 /uL 0.00-0 .05 Not Available [facility] (Lab) [address] [place], [address], 10/04/2021 13:56:21 10/05/19 22 10/04/2021 CBC/C OMPLE TE BLD COUNT W/DIF F nucleated red blood cells 0.0 % -0 Not Available [facility] (Lab) [address] [place], [address], 10/04/2021 13:56:21 10/05/19 22 10/04/2021 CBC/C OMPLE TE BLD COUNT W/DIF F NRBC# 0.00 x10'3 /uL Not Available [facility] (Lab) [address] [place], [address], 10/04/2021 13:56:21 01/26/20 22 01/31/2022 MISCE LLANE OUS TEST misc test see commen t SENT TO REFER ENCE LAB; SEE SEPAR ATE REPOR T Not Available [facility] (Lab) [address] [place], [address], 01/31/2022 09:47:27 01/26/20 22 01/25/2022 HEMOG LOBIN A1C HA1C 5.3 % 4.0-6. 0 Diabe geetha Scree philipp Crite monae: <5.7% Consi stent with absen ce of diabe geetha 5.7-6 .4% Consi stent with incre ased risk for diabe geetha (pred iabet es) >OR=6 .5% Consi stent with diabe geetha REFER ENCE: Diabe geetha Care 2015, 39(Avery ppl.1 ):s13 -s22 Not Available [facility] (Lab) [address] [place], [address], 01/25/2022 14:43:43 01/26/20 22 01/25/2022 TSH thyroid-stim ulating hormone 5.260 uIU/m L 0.465- 4.680 high Not Available [facility] (Lab) [address] [place], [address], 01/25/2022 12:07:14 01/26/20 22 01/25/2022 T3 FREE free T3 3.0 pg/mL 2.77-5 .27 Not Available [facility] (Lab) [address] [place], [address], 01/25/2022 11:51:13 01/26/20 22 01/25/2022 T4 FREE free T4 1.39 NG/dL 0.78-2 .19 Not Available [facility] (Lab) [address] [place], [address], 01/25/2022 11:51:09 01/26/20 22 01/25/2022 COMPR EHENS MAYDA METAB OLIC PANEL aspartate aminotransfe rase 26 U/L 15-37 Not Available [facility] (Lab) [address] [place], [address], 01/25/2022 11:50:00 01/26/20 22 01/25/2022 COMPR EHENS MAYDA METAB OLIC PANEL bilirubin, total 0.80 mg/dL 0.20-1 .30 Not Available [facility] (Lab) [address] [place], [address], 01/25/2022 11:50:00 01/26/20 22 01/25/2022 COMPR EHENS MAYDA METAB OLIC PANEL calcium 9.5 mg/dL 8.4-10 .2 Not Available [facility] (Lab) [address] [place], [address], 01/25/2022 11:50:00 01/26/20 22 01/25/2022 COMPR EHENS MAYDA METAB OLIC PANEL total protein 7.2 g/dL 6.3-8. 2 Not Available [facility] (Lab) [address] [place], [address], 01/25/2022 11:50:00 01/26/20 22 01/25/2022 COMPR EHENS MAYDA METAB OLIC PANEL albumin 4.2 g/dL 3.4-5. 0 Not Available [facility] (Lab) [address] [facility] [place], [address], 01/25/2022 11:50:00 01/26/20 22 01/25/2022 COMPR EHENS MAYDA METAB OLIC PANEL globulin 3.0 g/dL 2.6-4. 2 Not Available [facility] (Lab) [address] [place], [address], 01/25/2022 11:50:00 01/26/20 22 01/25/2022 COMPR EHENS MAYDA METAB OLIC PANEL A/G ratio 1.4 ratio 1.0-2. 0 Not Available [facility] (Lab) [address] [place], [address], 01/25/2022 11:50:00 01/26/20 22 01/25/2022 COMPR EHENS MAYDA METAB OLIC PANEL sodium 140 mmol/ L 137-14 5 Not Available [facility] (Lab) [address] [place], [address], 01/25/2022 11:50:00 01/26/20 22 01/25/2022 COMPR EHENS MAYDA METAB OLIC PANEL potassium 4.4 mmol/ L 3.5-5. 1 Not Available [facility] (Lab) [address] [place], [address], 01/25/2022 11:50:00 01/26/20 22 01/25/2022 COMPR EHENS MAYDA METAB OLIC PANEL chloride 104 mmol/ L 98-107 Not Available [facility] (Lab) [address] [place], [address], 01/25/2022 11:50:00 01/26/20 22 01/25/2022 COMPR EHENS MAYDA METAB OLIC PANEL carbon dioxide 29 mmol/ L 22-30 Not Available [facility] (Lab) [address] [place], [address], 01/25/2022 11:50:00 01/26/20 22 01/25/2022 COMPR EHENS MAYDA METAB OLIC PANEL anion gap 11.4 mmol/ L 14-22 low Not Available [facility] (Lab) [address] [place], [address], 01/25/2022 11:50:00 01/26/20 22 01/25/2022 COMPR EHENS MAYDA METAB OLIC PANEL glucose 92 mg/dL 70-99 Not Available [facility] (Lab) [address] [place], [address], 01/25/2022 11:50:00 01/26/20 22 01/25/2022 COMPR EHENS MAYDA METAB OLIC PANEL BUN 10 mg/dL 8-19 Not Available [facility] (Lab) [address] [place], [address], 01/25/2022 11:50:00 01/26/20 22 01/25/2022 COMPR EHENS MAYDA METAB OLIC PANEL creatinine 0.74 mg/dL 0.66-1 .25 Not Available [facility] (Lab) [address] [place], [address], 01/25/2022 11:50:00 01/26/20 22 01/25/2022 COMPR EHENS MAYDA METAB OLIC PANEL GFR >60 Refer ence Range : Harwood ge GFR Healt hy Adult : >60 [...] calcu lator is avail able on the [facility] websi te: https :[email or web address] w.javier hahn.o rg/pr ofess ional s/kdo qi/gf r_cal culat or Not Available [facility] (Lab) [address] [place], [address], 01/25/2022 11:50:00 01/26/20 22 01/25/2022 COMPR EHENS MAYDA METAB OLIC PANEL alkaline phosphatase 84 U/L 38-126 Not Available [facility] [place] (Lab) [address] [place], [address], 01/25/2022 11:50:00 01/26/20 22 01/25/2022 COMPR EHENS MAYDA METAB OLIC PANEL alanine aminotransfe rase 19 U/L 0-35 Not Available [facility] (Lab) [address] [place], [address], 01/25/2022 11:50:00 09/02/19 23 09/01/2022 US, bladd er No observ ation record ed. [email or web address] [address] [facility] [address], [place], [address], 09/08/2022 08:27:41 06/21/19 25 06/20/2024 imagi ng/di agnos tic resul t No observ ation record ed. [facility] [address], [place], [address], 06/20/2024 15:35:13 Result Notes None recorded. Problems Name Problem SNOMED Code Status Onset Date Resolution Date Notes Provider Name and Address Organization Details Recorded Time Dyspnea 181604330 Active Not Available [facility] 3 18:20:43 Vitamin D deficiency 94024937 Active 2021 Not Available [facility] 3 18:20:43 Hypothyroidis m 08784753 Active 2021 Not Available [facility] 3 18:20:43 Pulmonary embolism 92766197 Active Not Available [facility] 18:20:44 Prediabetes 459115123 Active 2021 Not Available [facility] 3 18:20:44 Obstructive sleep apnea syndrome 61059967 Active Not Available [facility] 3 18:20:44 Urinary incontinence 383790639 Active 2022 Marilyn Coronado MA [facility] [place] [employer] 10:49:04 Problem Notes None recorded. Procedures Surgical History Date Name Laterality Status Provider Name and Address Organization Details Recorded Time 11/11/19 Cystoscopy (female) completed Andrzej Ayala MD [address] [place] [address], [id number], [facility] [employer] [facility] [employer] 11/10/2022 10:44:05 06/24/19 Colonoscopy completed Not Available [facility] 05/19/19 18:20:10 thyroidectomy completed Not Available [facility] 05/18/2022 18:20:10 Imaging Results None recorded. Procedure Notes None recorded. Medical Equipment None Reported. Allergies Allergen ID Allergen Name Allergen Category Reaction Reaction Severity Criticality Documentation Date Start Date Code Code System Note Provider Name and Address Organization Details Recorded Time 63185 codeine medicatio n vomiting Not available Not available 05/18/2022 2670 RxNorm Not Available [facility] 3 18:22:18 Medications Name Sig Start Date [...] % 100 % 84 /min 98 [degF] 979847. 04 g 150 mm[Hg] 100 mm[Hg] Not Available [facility] 3 18:20:15 Date Recorded Body height Heart rate Body temperature Oxygen saturation Oxygen saturation in Arterial blood by Pulse oximetry Systolic blood pressure Diastolic blood pressure Provider Name and Address Organization Details Last Updated DateTime 3 167.64 cm 80 /min 98.7 [degF] 96 % 96 % 173 mm[Hg] 105 mm[Hg] Marilyn Coronado MA [employer] 3 10:44:52 Date Recorded Body weight Provider Name an d Address Organization Details Last Updated DateTime 09/01/2022 452551.38 g ROMMEL Campbell [employer] 09/01/2022 10:47:10 Date Recorded Body height Provider Name an d Address Organization Details Last Updated DateTime 11/10/2022 167.64 cm Marilyn Coronado MA [employer] 11/10/2022 10:05:31 Social History Question Answer Notes LastModified by [employer] Details LastModified Time Tobacco Smoking Status Former Smoker Quit 5 yrs ago Not Available [facility] 05/18/2022 18:20:04 What Is Your Level Of Caffeine Consumption? Heavy [id number] Information not available 05/18/2022 When Did You Quit Smoking? 1-5yearssin celastcigar ette Information not available 09/01/2022 What Is Your Relationship Status? [id number] Information not available 05/18/2022 Has Tobacco Cessation Counseling Been Provided? No Information not available 09/01/2022 Sex: Female Functional Status Question Answer Note LastModified by [employer] Details LastModified Time Do you use any illicit or recreational drugs? No Information not available 09/01/2022 Do you or have you ever used any other forms of tobacco or nicotine? No Information not available 09/01/2022 What is your level of alcohol consumption? 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 Family History Relationship Description Onset Age of this Age Resolved Age Notes LastModified by Organization Details LastModified Time Unspecified Relation Heart disease Not available 2022 10:46:14 Unspecified Relation Hypertensive disorder Not available 2022 10:46:27 Unspecified Relation Malignant neoplasm of urinary bladder Not available 2022 10:46:37 Medical History Condition Response OBESITY Y BLOOD CLOTS Y HYPERTENSION Y HIGH CHOLESTEROL / HYPERLIPIDEMIA Y DIABETES, TYPE Y HEADACHES/MIGRAINES Y Gynecological HistoryNo gynecological history recorded. Obstetrics History GPAL:G 0 P 0 0 0 0 Past Encounters Encounter ID Performer Location Encounter Start Date Encounter Closed Date Diagnosis/Indication Diagnosis SNOMED-CT Code Diagnosis ICD10 Code Diagnosis Note [id number] Yamila Luna MD _[facility]_ DEFAULT_1 _1 , 07/08/2021 00:00:00 07/08/2021 09:45:34 [id number] Yamila Luna MD [facility] [id number] [facility] [address] [place] [address] 10/12/2021 00:00:00 10/12/2021 10:08:29 [id number] MD ANNE Curiel[facility] [address] [place] [phone] 1 09/01/2022 10:09:56 09/01/2022 11:16:12 Urinary incontinence [id number] R32 Patient given informatio n on urinary incontinen ce and treatment. Will proceed with testing. cysto and Urodynamic s. [id number] MD ANNE Curiel[facility] [address] [place] [phone] 11/10/2022 09:53:30 11/10/2022 10:46:00 Urinary incontinence [id number] R32 findings c/w [facility] .follow up Health Concerns Section Related Observation LastModified by Organization Detai ls LastModified Time None Recorded Concern Status LastModified by Organization Details LastModified Time None Recorded Advance Directives Directive None Recorded Payers Encounter Date Sequence Insurance Name Policy Number Policy Vivas Covered Member ID Vivas Member ID Guarantor Name 09/01/2022 1 [facility] (MEDICARE REPLACEMENT/A DVANTAGE - HMO) [id number] Nory Johansen [id number] Nory Johansen 11/10/2022 1 [facility] (MEDICARE REPLACEMENT/A DVANTAGE - HMO) [id number] Nory Johansen [id number] Nory Johansen Notes Date Note Type Note Provider Name and Address Organization Details Recorded Time 09/01/2022 text/html 61 yo female wit h urinary incontinence both stress and urge. She wears depends. She has one daughter born vaginally. No retention, recurrent uti's or kidney problems. Has multiple medical problems with morbid obesity, DM, recurrent PEs, hypothyroid, lung disease. Andrzej Ayala MD [address] [place] [address], [facility] [address], [place], [address], [place] [facility] [employer] [facility] [employer] 09/01/2022 11:14:56 OBGyn Episode No OBEpisode recorded.
--- OUTSIDE RECORDS SUMMARY | 2024-08-14 09:39 | XMS_ITS | Data Portability ---
Author Organization [facility] Address [address] [facility] [place] [address] Care Team Providers Care Customer Experience Retail Clerk Name Role Phone BIRGIT JEFFERSON Family Medicine Unavailable Assessment No assessment recorded. Plan of Treatment Reminders Order Date Submit Date Provider Last Modified By Organization Details Last Modified Time Details Appointments ANY 15 2024 08:30A M BIRGIT JEFFERSON MD Not available Not available Not available Lab urinalys is, dipstick 2024 025 [email or web address] In-Office Order, Internal Use Only DO Not Attach Compendium DO Not Attach Compendium, Do Not Delete/merge, [id number] 07/19/2024 12:43:03 HbA1c (hemoglo bin A1c), blood 2023 024 [facility], [address] [facility], [facility] [[email or web address]] [address], [place], [address], 03/02/2024 10:36:54 albumin/ creatini ne, mass ratio, urine 2023 024 [facility], [address], [address], [place], [address], 03/02/2024 10:36:49 CMP, serum or plasma 2023 024 [facility], [address], [place], [address], 03/02/2024 10:36:51 urinalys is, dipstick 2023 024 [email or web address] In-Office Order, Internal Use Only DO Not Attach Compendium DO Not Attach Compendium, Do Not Delete/merge, [id number] 03/01/2024 09:53:37 lipid panel, serum 2023 024 [facility], [address] [place] [address] 2, [place], [address], 03/02/2024 10:36:50 TSH, ultra-se nsitive, serum 2023 024 [facility], [address] [place] [address] 2, [place], [address], 03/02/2024 10:36:52 Hepatiti s C IgG Ab, qual, serum 2023 024 [facility], [address] [place] [address] 2, [place], [address], 04/19/2024 09:40:06 influenz a virus A + B + SARS-CoV -2 (COVID19 ) Ag panel, rapid IA, upper respirat ory specimen 2023 024 [email or web address] In-Office Order, Internal Use Only DO Not Attach Compendium DO Not Attach Compendium, Do Not Delete/merge, [id number] 07/14/2023 12:46:22 Referral None recorded . Procedures None recorded . Surgeries None recorded . Imaging US, pelvis, complete - CT scan showed possible uterine fibroid vs left ovarian mass, about 3.9 cm in diameter 2024 025 [facility] (Im[facility]), [address] [place] [address] [address], [place], [address], 08/13/2024 10:14:25 LDCT, chest, for lung cancer screenin g - former smoker with about 39-40 pack-yea rs; quit about 7 years ago 2023 024 [facility], [address] [place] [address] [address], [place], [address], 05/22/2024 02:47:47 Medication Orders estradio l 0.01% (0.1 mg/gram) vaginal cream 2024 025 [facility] #54872, [address], [place], [id number], 07/19/2024 13:25:31 losartan 50 mg tablet 2023 024 [facility] #85953, [address], [place], [id number], 03/01/2024 09:53:43 tramadol 50 mg tablet 2023 024 [facility] #64235, [address], [place], [id number], 03/01/2024 09:53:46 ezetimib e 10 mg tablet 2023 024 [facility] #61626, [address], [place], [id number], 03/01/2024 09:53:45 atorvast atin 10 mg tablet 2023 025 [facility] #33886, [address], [place], [id number], 05/30/2024 10:10:30 levothyr oxine 137 mcg tablet 2023 024 [facility] #92673, [address], [place], [id number], 03/01/2024 09:53:43 docusate sodium 100 mg capsule 2023 024 [facility] #39051, [address], [place], [id number], 08/31/2023 08:54:19 tramadol 50 mg tablet 2023 024 [facility] #90429, [address], [place], [id number], 08/31/2023 08:54:18 amoxicil mirella 875 mg-potas sium clavulan ate 125 mg tablet 2023 024 [facility] #68708, [address], [place], [id number], 08/31/2023 08:29:23 fluticas one propiona te 50 mcg/actu ation nasal spray,bunn spension 2023 024 [id number], [address], [place], [id number], 07/14/2023 13:22:42 Patient TargetsNo targets recorded. Patient Instructions Encounter Date Encounter Id Patient Instructions Last Modified By Organization Details Last Modified Time 07/14/2023 [id number] upper respirator y infection (cold): care instructions [email or web address] Not available 07/14/2023 12:19:37 08/31/2023 [id number] A healthy lifestyle: care instructions Not available 08/31/2023 16:31:42 03/01/2024 [id number] advance care planning: care instructions [id number] Not available 03/01/2024 09:53:37 preventing falls : care instructions [email or web address] Not available 03/01/2024 09:53:36 A healthy lifestyle: care instructions [email or web address] Not available 03/01/2024 09:53:37 AD8 Dementia Screening Interview [email or web address] Not available 03/01/2024 09:53:37 eating healthy foods: care instructions [email or web address] Not available 03/01/2024 09:53:36 Reason for Referral [...] DO Not Attach Compendium, Do Not Delete/merge, [id number] 07/14/2023 12:19:31 07/14/19 24 07/14/2023 influ evangelina virus A + B + SARS- CoV-2 (COVI D19) Ag panel , rapid IA, upper respi rator y speci men Flu B negati ve Not Available In-Office Order Internal Use Only DO Not Attach Compendium DO Not Attach Compendium, Do Not Delete/merge, [id number] 07/14/2023 12:19:31 07/14/19 24 07/14/2023 influ evangelina virus A + B + SARS- CoV-2 (COVI D19) Ag panel , rapid IA, upper respi rator y speci men Rapid SARS CoV 2 Ag, QL IA, respiratory specimen negati ve Not Available In-Office Order Internal Use Only DO Not Attach Compendium DO Not Attach Compendium, Do Not Delete/merge, [id number] 07/14/2023 12:19:31 03/01/20 24 03/02/2024 ALBUM IN/CR EATIN INE RATIO ,URIN E creatinine, urine 13.8 mg/dL notest ab. Not Available [facility] ([facility]) [address], [place], [address], 03/02/2024 10:36:48 03/01/20 24 03/02/2024 ALBUM IN/CR EATIN INE RATIO ,URIN E albumin, urine 10.9 ug/mL notest ab. Not Available [facility] ([facility]) [address], [place], [address], 03/02/2024 10:36:48 03/01/20 24 03/02/2024 ALBUM IN/CR EATIN INE RATIO ,URIN E alb/creat ratio 79 mg/g_ creat 0-29 above high normal Fay l: 0 - 29 Moder ately incre ased: 30 - 300 Sever dayana incre ased: >300 Not Available [facility] ([facility]) [address], [place], [address], 03/02/2024 10:36:48 03/01/20 24 03/02/2024 LIPID PANEL cholesterol, total 180 mg/dL 100-19 9 Not Available [facility] ([facility]) [address] [place], [address], 03/02/2024 10:36:50 03/01/20 24 03/02/2024 LIPID PANEL triglyceride s 141 mg/dL 0-149 Not Available [facility] ([facility]) [address] [place], [address], 03/02/2024 10:36:50 03/01/20 24 03/02/2024 LIPID PANEL HDL cholesterol 48 mg/dL >39 Not Available [facility] ([facility]) [address] [place], [address], 03/02/2024 10:36:50 03/01/20 24 03/02/2024 LIPID PANEL VLDL cholesterol alvin 25 mg/dL 5-40 Not Available [facility] ([facility]) [address] [place], [address], 03/02/2024 10:36:50 03/01/20 24 03/02/2024 LIPID PANEL LDL chol calc ([facility]) 107 mg/dL 0-99 above high normal Not Available [facility] ([facility]) [address] [place], [address], 03/02/2024 10:36:50 03/01/20 24 03/02/2024 COMP. METAB OLIC PANEL (14) glucose 91 mg/dL 70-99 Not Available [facility] ([facility]) [address] [place], [address], 03/02/2024 10:36:51 03/01/20 24 03/02/2024 COMP. METAB OLIC PANEL (14) BUN 13 mg/dL 8-27 Not Available [facility] ([facility]) [address] [place], [address], 03/02/2024 10:36:51 03/01/20 24 03/02/2024 COMP. METAB OLIC PANEL (14) creatinine 0.80 mg/dL 0.57-1 .00 Not Available [facility] ([facility]) [address], [place], [address], 03/02/2024 10:36:51 03/01/20 24 03/02/2024 COMP. METAB OLIC PANEL (14) eGFR 83 mL/mi n/1.7 3 >59 Not Available [facility] ([facility]) [address], [place], [address], 03/02/2024 10:36:51 03/01/20 24 03/02/2024 COMP. METAB OLIC PANEL (14) BUN/creatini ne ratio 16 12-28 Not Available [facility] ([facility]) [address], [place], [address], 03/02/2024 10:36:51 03/01/20 24 03/02/2024 COMP. METAB OLIC PANEL (14) sodium 142 mmol/ L 134-14 4 Not Available [facility] ([facility]) [address], [place], [address], 03/02/2024 10:36:51 03/01/20 24 03/02/2024 COMP. METAB OLIC PANEL (14) potassium 4.6 mmol/ L 3.5-5. 2 Not Available [facility] ([facility]) [address], [place], [address], 03/02/2024 10:36:51 03/01/20 24 03/02/2024 COMP. METAB OLIC PANEL (14) chloride 103 mmol/ L 96-106 Not Available [facility] ([facility]) [address], [place], [address], 03/02/2024 10:36:51 03/01/20 24 03/02/2024 COMP. METAB OLIC PANEL (14) carbon dioxide, total 25 mmol/ L 20-29 Not Available [facility] ([facility]) [address], [place], [address], 03/02/2024 10:36:51 03/01/20 24 03/02/2024 COMP. METAB OLIC PANEL (14) calcium 9.6 mg/dL 8.7-10 .3 Not Available [facility] ([facility]) [address], [place], [address], 03/02/2024 10:36:51 03/01/20 24 03/02/2024 COMP. METAB OLIC PANEL (14) protein, total 7.1 g/dL 6.0-8. 5 Not Available [facility] ([facility]) [address], [place], [address], 03/02/2024 10:36:51 03/01/20 24 03/02/2024 COMP. METAB OLIC PANEL (14) albumin 4.4 g/dL 3.9-4. 9 Not Available [facility] ([facility]) [address] [place], [address], 03/02/2024 10:36:51 03/01/20 24 03/02/2024 COMP. METAB OLIC PANEL (14) globulin, total 2.7 g/dL 1.5-4. 5 Not Available [facility] ([facility]) [address], [place], [address], 03/02/2024 10:36:51 03/01/20 24 03/02/2024 COMP. METAB OLIC PANEL (14) bilirubin, total 0.7 mg/dL 0.0-1. 2 Not Available [facility] ([facility]) [address], [place], [address], 03/02/2024 10:36:51 03/01/20 24 03/02/2024 COMP. METAB OLIC PANEL (14) alkaline phosphatase 91 IU/L 44-121 Not Available [facility] ([facility]) [address], [place], [address], 03/02/2024 10:36:51 03/01/20 24 03/02/2024 COMP. METAB OLIC PANEL (14) AST (SGOT) 21 IU/L 0-40 Not Available [facility] ([facility]) [address], [place], [address], 03/02/2024 10:36:51 03/01/20 24 03/02/2024 COMP. METAB OLIC PANEL (14) ALT (SGPT) 20 IU/L 0-32 Not Available [facility] ([facility]) [address], [place], [address], 03/02/2024 10:36:51 03/01/20 24 03/02/2024 TSH RFX ON ABNOR MAL TO FREE T4 TSH 2.240 uIU/m L 0.450- 4.500 Not Available [facility] ([facility]) [address], [place], [address], 03/02/2024 10:36:52 03/01/20 24 03/02/2024 HEMOG LOBIN A1C hemoglobin A1C 5.9 % 4.8-5. 6 above high normal Predi abete s: 5.7 - 6.4 Diabe geetha: >6.4 Glyce rachid contr ol for adult s with diabe geetha: <7.0 Not Available [facility] ([facility]) [address], [place], [address], 03/02/2024 10:36:54 03/01/20 24 03/01/2024 urina lysis , dipst ick Leukocytes Negati ve Not Available In-Office Order Internal Use Only DO Not Attach Compendium DO Not Attach Compendium, Do Not Delete/merge, [id number] 03/01/2024 09:27:58 03/01/20 24 03/01/2024 urina lysis [...] 03/01/2024 urina lysis , dipst ick Specific Eugene 1.005 Not Available In-Off ice Order Internal [...] DO Not Attach Compendium, Do Not Delete/merge, [id number] 03/01/2024 09:27:58 03/01/20 24 03/01/2024 urina lysis , dipst ick Appearance Clear Not Available In-Offi ce Order Internal Use Only DO Not Attach Compendium DO Not Attach Compendium, Do Not Delete/merge, [id number] 03/01/2024 09:27:58 03/01/20 24 03/01/2024 urina lysis , dipst ick Color Yellow Not Available In-Office Order Internal Use Only DO Not Attach Compendium DO Not Attach Compendium, Do Not Delete/merge, [id number] 03/01/2024 09:27:58 04/18/19 25 04/19/2024 INTER PRETA TION: interpretati on: Commen t Not infec bertram with HCV unles s early or acute infec tion is suspe cted (whic h may be delay ed in an immun ocomp romis ed indiv idual ), or other evide nce exist s to indic ate HCV infec tion. Not Available [facility] ([facility]) [address], [place], [address], 04/19/2024 09:40:05 04/18/19 25 04/19/2024 HCV ANTIB LILIAN RFX TO QUANT PCR HCV Ab NON REACTI VE nonrea ctive Not Available [facility] ([facility]) [address], [place], [address], 04/19/2024 09:40:06 07/20/19 25 07/19/2024 urina lysis , dipst ick Leukocytes Negati ve Not Available In-Office Order Internal Use Only DO Not Attach Compendium DO Not Attach Compendium, Do Not Delete/merge, [id number] 07/19/2024 12:30:53 07/20/19 25 07/19/2024 urina lysis [...] 07/19/2024 urina lysis , dipst ick Specific Eugene 1.005 Not Available In-Off ice Order Internal [...] DO Not Attach Compendium, Do Not Delete/merge, [id number] 07/19/2024 12:30:53 07/20/19 25 07/19/2024 urina lysis , dipst ick Glucose Negati ve Not Available In-Office Order Internal Use Only DO Not Attach Compendium DO Not Attach Compendium, Do Not Delete/merge, [id number] 07/19/2024 12:30:53 07/20/19 25 07/19/2024 urina lysis , dipst ick Appearance Clear Not Available In-Offi ce Order Internal Use Only DO Not Attach Compendium DO Not Attach Compendium, Do Not Delete/merge, [id number] 07/19/2024 12:30:53 07/20/19 25 07/19/2024 urina lysis , dipst ick Color Yellow Not Available In-Office Order Internal Use Only DO Not Attach Compendium DO Not Attach Compendium, Do Not Delete/merge, [id number] 07/19/2024 12:30:53 01/08/20 24 01/08/2024 MAMMO , scree philipp, digit al, bilat eral No observ ation record ed. [facility] [address] [place], [address], 01/08/2024 15:20:25 05/22/19 25 05/03/2024 LDCT, chest , for lung cance r scree philipp No observ ation record ed. [facility] [address], [place], [address], 05/23/2024 09:42:47 06/21/19 25 06/20/2024 CT, angio gram, abdom en + pelvi s, w/ contr ast No observ ation record ed. [email or web address], [place], [address], 07/19/2024 12:17:20 08/14/19 25 08/09/2024 US, pelvi s, compl ete No observ ation record ed. [facility] [address], [place], [address], 08/13/2024 10:14:25 Result Notes None recorded. Problems Name Problem SNOMED Code Status Onset Date Resolution Date Notes Provider Name and Address Organization Details Recorded Time Aneurysm of ascendin g aorta 730063637 Active 2017 4.0 cm in 2019 -> 4.4 cm in 2022 BIRGTI JEFFERSON MD Attn: Milena milligan,[address], [place], [address], [place] [facility] 15:49:15 Acute follicul itis 983788449 Active 2017 Shelly Manrique [place] [facility] 10:06:36 Lethargy 890255755 Active 2017 Shel[place] [facility] 10:06:37 Eczema 04077212 Active 2017 Shelly [place] [facility] 10:06:37 Cellulit is of lower limb 797812901 Completed 201711/02/2022 BIRGIT JEFFERSON MD Attn: Milena milligan,[address] [facility], [place], [address], [place] [facility] 12:00:58 Acute sinusiti s 25186262 Active 2018 Shelly [place] [facility] 10:06:37 Screenin g for malignan t neoplasm of breast Completed 201804/21/2022 BIRGIT JEFFERSON MD Attn: Milena milligan,[address] [facility], [place], [address], [place] [facility] 13:19:24 Venous insuffic iency of leg 291042365 Active 2018 Shel[place] [facility] 10:06:37 Acute urinary tract infectio n 301433292 Completed 201904/14/2022 BIRGIT JEFFERSON MD Attn: Milena milligan,[address] [facility], [place], [address], [place] [facility] 15:48:37 Leukopen ia 70951109 Active 2019 Shelly [place] [facility] 10:06:37 Osteoart hritis of right knee joint 35739279830 9100 Active 2020 moderate see x-ray 05/20/2020 Shelly [place] [facility] 10:06:37 Increase d frequenc y of urinatio n 293837190 Active 2020 BIRGIT JEFFERSON MD Attn: Milena milligan,[address] [place], [address], [place] [facility] 12:00:21 Ganglion of foot 031834020 Active 2021 Shelly [place] [facility] 10:06:37 Thyroidi tis 80916338 Active 2021 Shel[place] [facility] 10:06:36 Administ ration of diphther ia and tetanus vaccine Completed 202104/14/2022 BIRGIT JEFFERSON MD Attn: Milena milligan,[address] [facility], [place], [address], [place] [facility] 15:48:42 Essentia l hyperten morena 04112788 Active 2021 BIRGIT JEFFERSON MD Attn: Milena milligan,[address] [place], [address], [place] [facility] 15:49:30 Urgent desire to urinate 68707812 Active 2021 Deandre Fonseca PA-C Attn: Milena milligan,[address] [facility], [place], [address], [place] [facility] 12:49:58 Body mass index 40+ - severely obese 783290986 Active 2022 BIRGIT JEFFERSON MD Attn: Milena milligan,[address] [place], [address], [place] [facility] 12:00:25 Type 2 diabetes mellitus 16353966 Active 2022 BIRGIT JEFFERSON MD Attn: Milena milligan,[address] [place], [address], [place] [facility] 12:01:36 History of polyp of colon 893319669 Active 2023 BIRGIT JEFFERSON MD Attn: Milena milligan,[address] [place], [address], [place] [facility] 09:52:19 Hyperlip idemia 51260190 Active BIRGIT JEFFERSON MD Attn: Milena milligan,[address] [place], [address] [facility] 12:01:17 Hyperten sive disorder 65507470 Active BIRGIT JEFFERSON MD Attn: Galorebecca milligan,[address] [place], [address], [place] [facility] 15:49:33 Ankle pain 099587621 Active Shel[place] [facility] 10:06:37 Arthriti s 0989588 Active Shelly [place] [facility] 10:06:36 Obesity 873405504 Active Shel[place] [facility] 10:06:36 Disorder of vitamin B12 869389094 Active Shel[place] [facility] 10:06:37 Ringing in ear 493199240 Active Shel[place] [facility] 10:06:36 Allergic rhinitis 15198780 Active BIRGIT JEFFERSON MD Attn: Milena milligan,[address] [place], [address], [place] [facility] 15:48:39 Tobacco user 782781543 Completed 11/02/2022 quit April 16, 2015 BIRGIT JEFFERSON MD Attn: Galorebecca milligan,[address] [place], [address], [place] [facility] 12:01:32 Hyperthy roidism 99108286 Completed 08/09/2016 Deandre Fonseca PA-C Attn: Milena milligan,[address] [facility], [place], [address], [place] [facility] 12:22:51 Disorder of vitamin D 246119544 Active Shel[place] [facility] 10:06:37 Hypothyr oidism 66248702 Active thyroide ctomy in 1999. BIRGIT JEFFERSON MD Attn: Milena srini,[address] [facility], [place], [address] [facility] 12:00:48 Dysuria 82724018 Completed 11/02/2022 BIRGIT JEFFERSON MD Attn: Milena srini,[address] [facility], [place], [address], [place] [facility] 12:01:12 Edema 279569229 Completed 04/14/2022 BIRGIT JEFFERSON MD Attn: Galorebecca milligan,[address] [facility], [place], [address] [facility] 15:49:26 Rheumato id arthriti s 96317854 Active BIRGIT JEFFERSON MD Attn: Galorebecca milligan,[address] [facility], [place], [address], [place] [facility] 12:00:36 Dyspnea 768012911 Completed 11/02/2022 BIRGIT JEFFERSON MD Attn: Galorebecca milligan,[address] [facility], [place], [address], [place] [facility] 12:01:09 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 [place] [facility] 10:06:37 Cellulit is of lower limb 952578197 Completed 11/02/2022 BIRGIT JEFFERSON MD Attn: Milena srini,[address] [place], [address], [place] [facility] 12:00:55 Pulmonar y embolism 22830547 Active Shel[place] [facility] 10:06:37 Deep venous thrombos is of lower extremit y 671495163 Active [place] [facility] 10:06:37 Edema of lower extremit y 319438597 Active [place] [facility] 10:06:37 Chronic obstruct gonzalez pulmonar y disease 35759165 Active Shel[place] [facility] 10:06:37 Low back pain 881994422 Active 2016 Shel[place] [facility] 10:06:36 Administ ration of influenz a vaccine Completed 201604/14/2022 BIRGIT JEFFERSON MD Attn: Milena milligan,[address] [place], [address] [facility] 15:48:33 Screenin g for malignan t neoplasm of colon Completed 201604/21/2022 BIRGIT JEFFERSON MD Attn: Milena milligan,[address] [place], [address], [place] [facility] 13:19:26 Problem Notes None recorded. Procedures Surgical History Date Name Laterality Status Provider Name and Address Organization Details Recorded Time 01/08/20 24 Date of Last Mammogram completed Nimo Mullen [place] 03/01/2024 09:04:57 01/11/20 23 colonoscopy completed VANDANA Hogan [facility] 03/01/2024 09:08:11 04/09/19 23 Date of Last Pap Smear completed VANDANA Hogan [facility] 03/01/2024 09:04:33 03/21/19 20 colonoscopy completed VANDANA Hogan [facility] 04/18/2023 09:01:54 10/25/20 18 Endovenous laser vein addon completed Millie Solitario [place] 03/07/2018 09:51:03 Removal of thyroid completed Katja Larson MA [place] 06/23/2014 14:56:15 Cholecystectomy completed Katja Larson MA [facility] 06/23/2014 14:56:15 Tubal Ligation completed Katja Larson MA [facility] SI 06/23/2014 14:56:15 Imaging Results None recorded. Procedure Notes None recorded. Medical Equipment None Reported. Allergies Allergen ID Allergen Name Allergen Category Reaction Reaction Severity Criticality Documentation Date Start Date Code Code System Note Provider Name and Address Organization Details Recorded Time 169900 metformin medicatio n diarrhea moderate Not available 10/29/2021 6809 RxNorm Nimo MullenVANDANA, [facility] SI 3 15:49:35 72704 Effexor medicatio n Not available Not available Not available 06/23/2014 45754 2 RxNorm KatjaVANDANA Rouse, [facility] SI 5 14:49:02 53294 codeine medicatio n vomiting Not available Not available 06/23/2014 2670 RxNorm Katja NeoVANDANA ulrich, [facility] SI 5 14:49:02 Medications Name Sig Start Date [...] route in the morning for 10 days. 07/21 completed Not Available Not Available [...] Not Available Vitals Date Recorded Body height Body mass index (BMI) Body weight Oxygen saturation Oxygen saturation in Arterial blood by Pulse oximetry Heart rate Respiratory rate Body temperature Systolic blood pressure Diastolic blood pressure Provider Name and Address Organization Details Last Updated DateTime 5 162.56 cm 55.8 kg/m2 396494. 87 g 97 % 97 % 76 /min 16 /min 97.5 [degF] 139 mm[Hg] 84 mm[Hg] Kerrie Horton MA [facility] SIF 5 09:33:09 Date Recorded Body height Oxygen saturation Oxygen saturation in Arterial blood by Pulse oximetry Heart rate Body temperature Body mass index (BMI) Body weight Systolic blood pressure Diastolic blood pressure Provider Name and Address Organization Details Last Updated DateTime 4 162.56 cm 98 % 98 % 74 /min 97.7 [degF] 50.5 kg/m2 853011. 16 g 145 mm[Hg] 90 mm[Hg] Kerrie Drummond MA [facility] SIF 4 12:23:44 Date Recorded Body height Body mass index (BMI) Body weight Oxygen saturation Oxygen saturation in Arterial blood by Pulse oximetry Heart rate Body temperature Systolic blood pressure Diastolic blood pressure Provider Name and Address Organization Details Last Updated DateTime 5 162.56 cm 57.6 kg/m2 334464. 24 g 96 % 96 % 82 /min 97.6 [degF] 145 mm[Hg] 82 mm[Hg] Nimo Mullen [facility] S[facility] 5 11:56:16 Date Recorded Body height Body mass index (BMI) Body weight Body temperature Heart rate Oxygen saturation Oxygen saturation in Arterial blood by Pulse oximetry Systolic blood pressure Diastolic blood pressure Provider Name and Address Organization Details Last Updated DateTime 4 162.56 cm 52.2 kg/m2 331495. 43 g 97.9 [degF] 73 /min 97 % 97 % 115 mm[Hg] 71 mm[Hg] Nimo Mullen [facility] 4 08:28:51 Date Recorded Body height Body mass index (BMI) Body weight Oxygen saturation Oxygen saturation in Arterial blood by Pulse oximetry Heart rate Body temperature Systolic blood pressure Diastolic blood pressure Provider Name and Address Organization Details Last Updated DateTime 4 162.56 cm 53.8 kg/m2 087035. 46 g 97 % 97 % 76 /min 97.7 [degF] 138 mm[Hg] 78 mm[Hg] Nimo Mullen [place] [facility] 08:52:36 Social History Question Answer Notes LastModified by Organizat ion Details LastModified Time Tobacco Smoking Status Former Smoker Quit 04/16/15 Joann Franks [place] null, [place] [facility] 09/04/2017 12:12:51 Do You Have An Advance [...] anxious, or unable to sleep at night)? [id number] Information not available 03/07/2023 Family History Relationship [...] Skin Problems N Anemia N Heart Attack ([place]) N Diabetes N Ovarian Cancer N Blood [...] completed BIRGIT JEFFERSON MD Attn: Accounting,[address] [facility], [place], [address], [facility] 05/30/2024 10:03:57 SARS-COV-2 (COVID-19) vaccine, UNSPECIFIED 1 completed BIRGIT JEFFERSON MD Attn: Accounting,[address] [place], [place], [address] [place] [address], [facility] 05/30/2024 10:03:57 Hep A, adult 0 completed BIRGIT JEFFERSON MD Attn: Accounting,[address] [place], [place], [address] [place] [address], [place] [facility] 05/31/2023 09:08:01 Hep A, adult 9 completed BIRGIT JEFFERSON MD Attn: Accounting,[address] [place], [place], [address] [place] [address], [facility] 05/31/2023 09:08:01 COVID-19, mRNA, LNP-S, PF, kimberly-sucrose, 30 mcg/0.3 mL 3 completed BIRGIT JEFFERSON MD Attn: Accounting,[address] [place], [place], [address] [place] [address], [place] [facility] 05/31/2023 09:08:21 COVID-19, mRNA, LNP-S, PF, kimberly-sucrose, 30 mcg/0.3 mL 4 completed BIRGIT JEFFERSON MD Attn: Accounting,[address] [place], [place], [address] [place] [address], [place] [facility] 03/01/2024 09:23:28 Influenza, MDCK, trivalent, PF 4 completed BIGRIT JEFFERSON MD Attn: Accounting,[address] [place], [place], [address] [place] [address], [place] [facility] 03/01/2024 09:23:28 Influenza, split virus, quadrivalent, preservative 7 completed Not Available [facility] 04/06/2019 02:46:04 Influenza, split virus, quadrivalent, PF 8 completed Not Available [facility] 04/06/2019 02:44:20 Influenza, split virus, quadrivalent, preservative 9 completed Not Available [facility] 04/06/2019 02:38:14 Influenza, split virus, quadrivalent, preservative [...] completed Deandre Fonseca PA-C Attn: Accounting,[address] [place], [address], [place] [facility] 12/30/2021 15:15:31 COVID-19, mRNA, LNP-S, PF, 30 mcg/0.3 mL dose, kimberly-sucrose 2 completed April Gruber [place], [place] [facility] 02/28/2022 09:48:24 Pneumococcal conjugate PCV20, polysaccharide COX640 conjugate, adjuvant, PF 4 completed Nimo Mullen [place], [place] [facility] 03/01/2024 09:55:17 Past Encounters Encounter ID Performer Location Encounter Start Date Encounter Closed Date Diagnosis/Indication Diagnosis SNOMED-CT Code Diagnosis ICD10 Code Diagnosis Note [id number] DEXTER Ruiz (Adult Med) [address] [place] [address] 06/23/2014 14:23:43 06/23/2014 17:39:58 Allergic rhinitis 88384765 Ankle pain 849593663 Arthritis 4988305 Disorder o f vitamin B12 837326604 Disorder of vitamin D 557491538 Hyperlipidemia 28901789 Hyperthyroidism 24527970 Obesity 062507442 Ringing in ear 978736666 Hypothyroidism 68078651 Adult heal th examination 735595389 Dysuria 53541349 [id number] MD Isac Gleason (Adult Med) [address] [place] [address] [id number] 08/29/2014 14:45:28 08/29/2014 15:57:20 Adult health examination 926810655 Allergic rhinitis 42626459 Ankle pain 187180575 Arthritis 3705343 Disorder o f vitamin B12 189976725 Disorder of vitamin D 717313222 Dysuria 72377654 Hyperlipidemia 30385749 Hypertensive disorder 18089098 Hypothyroidism 08666727 Obesity 512257273 Edema 338580754 [id number] DEXTER Ruiz (Adult Med) [address] [place] [address] [id number] 0 11/07/2014 14:34:29 11/07/2014 17:39:38 Adult health examination 249238814 Allergic rhinitis 42529561 Arthritis 7953510 Disorder o f vitamin B12 433711851 Disorder of vitamin D 145132071 Dysuria 65161667 Hyperlipidemia 68407985 Hypertensive disorder 17418754 Hypothyroidism 72637778 Rheumatoid arthritis 95347609 see labs CCP & RF: 10/24/14 Dyspnea 249960333 Ankle pain 782361912 Edema 375734400 [id number] MD Isac Srinivasan ([employer]) [address] [place] [address] [phone] 0 12/15/2014 14:35:25 12/15/2014 17:37:42 Screening for malignant neoplasm of breast 906449228 Menopausal syndrome 529083458 [id number] MD Isac Gleason (Adult Med) [address] [place] [address] [id number] 0 01/12/2015 14:26:21 01/12/2015 15:33:44 Adult health examination 651014062 Z00.00 Allergic rhinitis 540668 04 J30.9 Ankle pain 699701716 M25 .579 Arthritis 9023529 M19.90 Disorder o f vitamin B12 552425155 D51.1 Disorder of vitamin D 38 0542474 E55.9 Dyspnea 039050162 R06.00 Hyperlipidemia 59240168 E78.5 Hypertensive disorder 38 812987 I10 Hypothyroidism 50271178 E03.9 Obesity 785344578 E66.9 Rheumatoid arthritis 698 94678 M06.9 see labs CCP & RF: 10/24/14 Ringing in ear 025775935 H93.19 Tobacco user 822718258 Z 72.0 [id number] DEXTER Ruiz (Adult Med) [address] [place] [address] [id number] 03/16/2015 15:18:56 03/16/2015 16:28:29 Cellulitis of lower limb 090179944 L03.119 [id number] DEXTER Ruiz (Adult Med) [address] [place] [address] [id number] 0 04/27/2015 09:23:36 04/27/2015 10:10:21 Pulmonary embolism 84486141 I26.99 Deep venou s thrombosis of lower extremity 399564900 I82.402 [id number] DEXTER Ruiz (Adult Med) [address] [place] [address] 95567-111 0 05/15/2015 09:33:24 05/15/2015 10:29:05 Cellulitis of lower limb 252463314 L03.119 Disorder of vitamin D 38 2315879 E55.9 Edema 296577488 R60.9 Hyperlipidemia 67474500 E78.5 Dyspnea 694440895 R06.00 Deep venou s thrombosis of lower extremity 316988503 I82.402 [id number] DEXTER Ruiz (Adult Med) [address] [place] [address] [id number] 0 06/12/2015 09:43:13 06/12/2015 10:48:40 Deep venous thrombosis of lower extremity 679592191 I82.402 Disorder o f vitamin B12 539234499 D51.1 Disorder of vitamin D 38 5016292 E55.9 Dyspnea 587244612 R06.00 Hyperlipidemia 55848500 E78.5 Obesity 141350735 E66.9 Pulmonary embolism 80725 003 I26.99 Rheumatoid arthritis 698 00172 M06.9 see labs CCP & RF: 10/24/14 Tobacco user 361690127 Z 72.0 off tobacco 2 months and 1 day [id number] DEXTER Ruiz (Adult Med) [address] [place] [address] [id number] 0 07/17/2015 10:04:10 07/17/2015 10:50:35 Rheumatoid arthritis 69618108 M06.9 see labs CCP & RF: 10/24/14 Edema of l ower extremity 517427279 R60.0 Allergic rhinitis 212625 04 J30.9 Deep venou s thrombosis of lower extremity 881297711 I82.402 Disorder o f vitamin B12 741163256 D51.1 Disorder of vitamin D 38 1313012 E55.9 Pulmonary embolism 84434 003 I26.99 Hypothyroidism 51059029 E03.9 [id number] Maisha Conroy MD [facility] (Adult Med) [address] [place] [address] [id number] 0 09/17/2015 09:28:16 09/17/2015 10:24:48 Allergic rhinitis 94967411 J30.9 Deep venou s thrombosis of lower extremity 999464349 I82.402 Disorder o f vitamin B12 735140803 D51.1 Disorder of vitamin D 38 0677005 E55.9 Hyperlipidemia 47866357 E78.5 Edema of l ower extremity 183050125 R60.0 Obesity 606430395 E66.9 Pulmonary embolism 68076 003 I26.99 Rheumatoid arthritis 698 19018 M06.9 see labs CCP & RF: 10/24/14 Hypothyroidism 96652082 E03.9 Screening for malignant neoplasm of colon 723818927 Z12.11 Chronic ob structive pulmonary disease 12473716 J44.9 [id number] Maisha Conroy MD [facility] (Adult Med) [address] [place] [address] [id number] 0 11/12/2015 09:38:41 11/13/2015 10:06:50 Chronic obstructive pulmonary disease 90124776 J44.9 Disorder o f vitamin B12 571347853 E53.8 Disorder of vitamin D 38 7790579 E55.9 Edema of l ower extremity 155586671 R60.0 Hyperlipidemia 10806999 E78.5 Hypothyroidism 78932609 E03.9 Obesity 968932003 E66.9 Pulmonary embolism 71211 003 I26.99 Rheumatoid arthritis 698 26042 M06.9 see labs CCP & RF: 10/24/14 Tobacco user 024648805 Z 72.0 off tobacco 2 months and 1 day; off tobacco since [id number] MD Isac Gleason (Adult Med) [address] [place] [address] [id number] 0 05/16/2016 09:34:01 05/16/2016 10:09:23 Chronic obstructive pulmonary disease 67135387 J44.9 Edema 768540687 R60.9 Hypothyroidism 04364637 E03.9 Hyperlipidemia 88955992 E78.5 Rheumatoid arthritis 698 46246 M06.9 see labs CCP & RF: 10/24/14 Edema of l ower extremity 257871269 R60.0 [id number] MD Isac Gleason (Adult Med) [address] [place] [address] [phone] 0 07/11/2016 09:34:13 07/11/2016 10:25:50 Rheumatoid arthritis 50617653 M06.9 see labs CCP & RF: 10/24/14 Pulmonary embolism 50106 003 I26.99 Hyperlipidemia 84743947 E78.5 Obesity 030355262 E66.9 Hypothyroidism 82959913 E03.9 Deep venou s thrombosis of lower extremity 777018859 I82.402 Disorder o f vitamin B12 241426498 E53.8 Disorder of vitamin D 38 7473841 E55.9 Hypertensive disorder 38 955435 I10 Chronic ob structive pulmonary disease 60012554 J44.9 Dyspnea 679425978 R06.00 Edema of l ower extremity 679749960 R60.0 [id number] DEXTER Ruiz (Adult Med) [address] [place] [address] 80941-739 0 08/22/2016 10:13:42 08/22/2016 11:06:10 Edema 540759008 R60.9 Low back pain 304890134 M54.5 Chronic ob structive pulmonary disease 58581034 J44.9 Hypothyroidism 56747486 E03.9 [id number] MD Isac Gleason (Adult Med) [address] [place] [address] [id number] 0 10/24/2016 09:34:52 10/24/2016 17:12:40 Hypothyroidism 25869733 E03.9 [id number] MD Isac Gleason (Adult Med) [address] [place] [address] [id number] 0 01/03/2017 09:46:12 01/03/2017 10:36:20 Hypothyroidism 10392836 E03.9 Disorder o f vitamin B12 732091869 E53.8 Disorder of vitamin D 38 8874396 E55.9 Edema 818609020 R60.9 Arthritis 0146375 M19.90 Tobacco user 769574073 Z 72.0 Administra tion of influenza vaccine 13623748 Z23 Screening for malignant neoplasm of colon 938586508 Z12.11 [id number] Maisha Conroy MD [facility] (Adult Med) [address] [place] [address] [id number] 0 03/28/2017 09:37:35 03/28/2017 10:11:01 Obesity 601785153 E66.9 Hypothyroidism 94007599 E03.9 Cellulitis of lower limb 125830954 L03.119 Hyperlipidemia 92120718 E78.5 Edema 286045116 R60.9 Rheumatoid arthritis 698 63810 M06.9 see labs CCP & RF: 10/24/[id number] Maisha Conroy MD [facility] (Adult Med) [address] [place] [address] [id number] [id number] 05/23/2017 09:18:23 05/23/2017 10:08:05 Acute folliculitis 735438174 L73.9 Hypothyroidism 01575177 E03.9 Hyperlipidemia 61443218 E78.5 Pulmonary embolism 45715 003 I26.99 Rheumatoid arthritis 698 53531 M06.9 see labs CCP & RF: 10/24/14 Obesity 991994863 E66.9 Lethargy 915006189 R53.8 3 Disorder of vitamin D 38 6136227 E55.9 Deep venou s thrombosis of lower extremity 007376929 I82.184 [id number] Maisha Conroy MD [facility] (Adult Med) [address] [place] [address] [phone] 0 07/04/2017 09:29:51 07/04/2017 12:59:49 Cellulitis of lower limb 253138089 L03.119 Hyperlipidemia 39417448 E78.5 Eczema 41518655 L30.9 Chronic ob structive pulmonary disease 71251208 J44.9 Pulmonary embolism 97716 003 I26.99 Rheumatoid arthritis 698 15174 M06.9 see labs CCP & RF: 10/24/14 Obesity 811878005 E66.9 Disorder of vitamin D 38 9581144 E55.9 Disorder o f vitamin B12 255802486 E53.8 Hypertensive disorder 38 550209 I10 [id number] Maisha Conroy MD [facility] (Adult Med) [address] [place] [address] [id number] 0 09/04/2017 11:26:52 09/05/2017 09:22:27 Rheumatoid arthritis 03507168 M06.9 see labs CCP & RF: 10/24/14 Hyperlipidemia 40792801 E78.5 Hypothyroidism 21595687 E03.9 Pulmonary embolism 44859 003 I26.99 Low back pain 593730273 M54.5 Tobacco user 676379732 Z 72.0 Chronic ob structive pulmonary disease 86191438 J44.9 Arthritis 3191764 M19.90 Disorder of vitamin D 38 9478477 E55.9 Deep venou s thrombosis of lower extremity 402371642 I82.974 [id number] Maisha Conroy MD [facility] (Adult Med) [address] [place] [address] [id number] 0 10/12/2017 10:05:18 10/16/2017 10:59:39 Cellulitis of lower limb 539864920 L03.119 Aneurysm o f ascending aorta 554319368 I71.2 Low back pain 568935031 M54.5 Tobacco user 110011785 Z 72.0 Chronic ob structive pulmonary disease 00707593 J44.9 Hypertensive disorder 38 678154 I10 Disorder o f vitamin B12 811949092 E53.8 Disorder of vitamin D 38 2661211 E55.9 Obesity 010690417 E66.9 Hyperlipidemia 52753779 E78.5 Pulmonary embolism 00120 003 I26.99 Rheumatoid arthritis 698 80265 M06.9 see labs CCP & RF: 10/24/14 [id number] [facility] [address] [place] [address] 72865-822 0 11/06/2017 09:24:42 11/06/2017 10:20:03 Chronic obstructive pulmonary disease 58292921 J44.9 Deep venou s thrombosis of lower extremity 365313663 I82.402 Hypothyroidism 14681629 E03.9 Obesity 168778008 E66.9 Hyperlipidemia 65992177 E78.5 Pulmonary embolism 45822 003 I26.99 Rheumatoid arthritis 698 32003 M06.9 see labs CCP & RF: 10/24/14 Hypertensive disorder 38 204761 I10 Cellulitis of lower limb 060552923 L03.056 [id number] Maisha Conroy MD [facility] (Adult Med) [address] [place] [address] 97940-015 0 01/09/2018 11:54:16 01/09/2018 13:07:01 Hyperlipidemia 78246092 E78.5 Edema of l ower extremity 961432627 R60.0 Hypertensive disorder 38 821295 I10 Hypothyroidism 33670262 E03.9 Rheumatoid arthritis 698 65787 M06.9 see labs CCP & RF: 10/24/14 Disorder of vitamin D 38 3995586 E55.9 Administra tion of influenza vaccine 64884130 Z23 Aneurysm o f ascending aorta 299146137 I71.2 Chronic ob structive pulmonary disease 04819344 J44.9 Dyspnea 861093249 R06.00 Pulmonary embolism 52803 003 I26.99 Obesity 370374125 E66.9 Deep venou s thrombosis of lower extremity 556227316 I82.402 Disorder o f vitamin B12 695512552 E53.8 Arthritis 0749366 M19.90 [id number] Maisha Conroy MD [facility] (Adult Med) [address] [place] [address] 07147-041 0 03/07/2018 09:31:53 03/07/2018 10:15:43 Chronic obstructive pulmonary disease 86053525 J44.9 Dyspnea 867715861 R06.00 Screening for malignant neoplasm of colon 163261585 Z12.11 Low back pain 278765145 M54.5 Edema of l ower extremity 508688076 R60.0 Tobacco user 976425393 Z 72.0 Arthritis 5806399 M19.90 Hypertensive disorder 38 686429 I10 Disorder of vitamin D 38 0313858 E55.9 Deep venou s thrombosis of lower extremity 229714811 I82.402 Hypothyroidism 94619533 E03.9 Obesity 744429729 E66.9 Hyperlipidemia 08348523 E78.5 Pulmonary embolism 51961 003 I26.99 [id number] Maisha Conroy MD [facility] (Adult Med) [address] [place] [address] [id number] 0 05/09/2018 09:18:26 05/11/2018 09:02:08 Acute sinusitis 44670581 J01.90 Hypothyroidism 73846223 E03.9 Rheumatoid arthritis 698 17118 M06.9 see labs CCP & RF: 10/24/14 Disorder o f vitamin B12 705335551 E53.8 Disorder of vitamin D 38 9114854 E55.9 Hyperlipidemia 02910666 E78.5 Obesity 000049697 E66.9 Screening for malignant neoplasm of breast 029846341 Z12.31 Aneurysm o f ascending aorta 019446955 I71.2 Low back pain 250966161 M54.5 Edema of l ower extremity 075701981 R60.0 Chronic ob structive pulmonary disease 18661624 J44.9 Tobacco user 947389540 Z 72.0 Cellulitis of lower limb 109754020 L03.119 Hypertensive disorder 38 168163 I10 Arthritis 8373293 M19.90 [id number] MD [facility]ac Gleason (Adult Med) [address] [place] [address] [id number] 0 07/09/2018 09:52:36 07/09/2018 10:30:35 Acute sinusitis 93771105 J01.90 Hypothyroidism 23002409 E03.9 Aneurysm o f ascending aorta 405958611 I71.2 Low back pain 627840248 M54.5 Tobacco user 398155662 Z 72.0 Chronic ob structive pulmonary disease 94789163 J44.9 Disorder of vitamin D 38 4386733 E55.9 Deep venou s thrombosis of lower extremity 295081542 I82.402 Obesity 318869885 E66.9 Hyperlipidemia 18725650 E78.5 Pulmonary embolism 52260 003 I26.99 Allergic rhinitis 604013 04 J30.9 Rheumatoid arthritis 698 17861 M06.9 see labs CCP & RF: 10/24/14 [id number] MD [facility]ac Gleason (Adult Med) [address] [place] [address] 59728-600 0 09/07/2018 09:47:28 09/10/2018 08:53:07 Edema of lower extremity 669541658 R60.0 Rheumatoid arthritis 698 31811 M06.9 see labs CCP & RF: 10/24/14 Acute sinusitis 33110483 J01.90 Hypothyroidism 08102008 E03.9 Aneurysm o f ascending aorta 421092514 I71.2 Low back pain 336068438 M54.5 Tobacco user 812884009 Z 72.0 Chronic ob structive pulmonary disease 74751451 J44.9 Arthritis 3394683 M19.90 Hyperlipidemia 36406435 E78.5 Hypertensive disorder 38 232469 I10 Disorder o f vitamin B12 500950858 E53.8 Disorder of vitamin D 38 2826437 E55.9 Deep venou s thrombosis of lower extremity 490474759 I82.402 Obesity 004096655 E66.9 Pulmonary embolism 99697 003 I26.99 Allergic rhinitis 237299 04 J30.9 [id number] DEX[facility] (Adult Med) [address] [place] [address] 15154-299 0 11/05/2018 17:00:34 11/05/2018 17:33:18 Edema of lower extremity 231117590 R60.0 Disorder o f vitamin B12 758231440 E53.8 Disorder of vitamin D 38 9003236 E55.9 Hypothyroidism 59119525 E03.9 Aneurysm o f ascending aorta 379897377 I71.2 Low back pain 307274786 M54.5 Chronic ob structive pulmonary disease 64501221 J44.9 Arthritis 2510757 M19.90 Deep venou s thrombosis of lower extremity 826560882 I82.402 Pulmonary embolism 22049 003 I26.99 Allergic rhinitis 846738 04 J30.9 Rheumatoid arthritis 698 05415 M06.9 see labs CCP & RF: 10/24/14 [id number] MD [facility] Gleason (Adult Med) [address] [place] [address] 90334-694 0 12/28/2018 09:47:56 12/28/2018 10:43:04 Rheumatoid arthritis 43712351 M06.9 see labs CCP & RF: 10/24/14 Edema of l ower extremity 644898641 R60.0 Deep venou s thrombosis of lower extremity 203342710 I82.402 Administra tion of influenza vaccine 14486673 Z23 [id number] MD [facility]ac Gleason (Adult Med) [address] [place] [address] [phone] 0 02/27/2019 09:29:39 02/27/2019 10:16:50 Hyperlipidemia 89739114 E78.5 Low back pain 636414971 M54.5 Obesity 946977904 E66.9 Rheumatoid arthritis 698 82201 M06.9 see labs CCP & RF: 10/24/14 Pulmonary embolism 85610 003 I26.99 Hypothyroidism 38878241 E03.9 Disorder of vitamin D 38 7202835 E55.9 Disorder o f vitamin B12 009792714 E53.8 Chronic ob structive pulmonary disease 90767122 J44.9 Screening for malignant neoplasm of colon 675171874 Z12.11 Allergic rhinitis 781907 04 J30.9 Aneurysm o f ascending aorta 889283506 I71.2 Deep venou s thrombosis of lower extremity 382023876 I82.402 Hypertensive disorder 38 725059 I10 [id number] [facility] (Adult Med) [address] [place] [address] [phone] 0 04/02/2019 14:34:34 04/03/2019 11:51:15 Constipation 04739879 K59.00 Hx of recent screening colonoscop y [...] Patient and her plan to go to [facility] upon leaving office [id number] MD [facility] Gleason (Adult Med) [address] [place] [address] 64779-938 0 04/12/2019 10:46:49 04/16/2019 11:59:35 Hypothyroidism 71319351 E03.9 Rheumatoid arthritis 698 53474 M06.9 see labs CCP & RF: 8/7/15 Acute urin jessica tract infection 998312135 N39.0 Leukopenia 01267570 D72. 819 Allergic rhinitis 383309 04 J30.9 Arthritis 7408015 M19.90 Chronic ob structive pulmonary disease 12750924 J44.9 Deep venou s thrombosis of lower extremity 040649936 I82.402 Disorder o f vitamin B12 969816758 E53.8 Disorder of vitamin D 38 8875457 E55.9 Hyperlipidemia 40693985 E78.5 Pulmonary embolism 81725 003 I26.99 Venous ins ufficiency of leg 971699172 I87.2 [id number] Maisha Conroy MD [facility] (Adult Med) [address] [place] [address] 78673-812 0 04/30/2019 09:17:11 04/30/2019 10:00:49 Cellulitis of lower limb 252864421 L03.119 Edema of l ower extremity 643929732 R60.0 Hyperlipidemia 19837544 E78.5 Hypothyroidism 19748546 E03.9 Leukopenia 61855423 D72. 819 Low back pain 166755605 M54.5 Pulmonary embolism 57981 003 I26.99 Aneurysm o f ascending aorta 284953601 I71.2 Allergic rhinitis 650362 04 J30.9 Chronic ob structive pulmonary disease 82764350 J44.9 [id number] Maisha Conroy MD [facility] (Adult Med) [address] [place] [address] 35086-857 0 05/29/2019 11:20:21 05/29/2019 11:48:29 Screening for malignant neoplasm of breast 068809888 Z12.31 Obesity 211494657 E66.9 Pulmonary embolism 12405 003 I26.99 Hypothyroidism 03498929 E03.9 Hyperlipidemia 59469548 E78.5 Allergic rhinitis 183071 04 J30.9 Aneurysm o f ascending aorta 086715226 I71.2 Chronic ob structive pulmonary disease 81601132 J44.9 Deep venou s thrombosis of lower extremity 758654741 I82.402 Disorder of vitamin D 38 7829685 E55.9 Rheumatoid arthritis 698 09741 M06.9 see labs CCP & RF: 10/24/14 Venous ins ufficiency of leg 034850931 I87.2 [id number] Maisha Conroy MD [facility] (Adult Med) [address] [place] [address] [id number] 0 08/01/2019 08:04:32 08/01/2019 10:29:42 Constipation 79378734 K59.00 Allergic rhinitis 909743 04 J30.9 Aneurysm o f ascending aorta 259527255 I71.2 Chronic ob structive pulmonary disease 61716705 J44.9 Deep venou s thrombosis of lower extremity 834361635 I82.402 Disorder of vitamin D 38 3828089 E55.9 Hyperlipidemia 90127336 E78.5 Hypertensive disorder 38 809489 I10 Hypothyroidism 89250426 E03.9 Low back pain 853605433 M54.5 Pulmonary embolism 13986 003 I26.99 Tobacco user 311961528 Z 72.0 Venous ins ufficiency of leg 277397618 I87.2 Rheumatoid arthritis 698 02769 M06.9 see labs CCP & RF: 10/24/14 [id number] Maisha Conroy MD [facility] (Adult Med) [address] [place] [address] 44050-430 0 09/26/2019 09:47:57 09/26/2019 10:30:21 Rheumatoid arthritis 48312409 M06.9 see labs CCP & RF: 10/24/14 Hypothyroidism 45338032 E03.9 Allergic rhinitis 565628 04 J30.9 Aneurysm o f ascending aorta 274034860 I71.2 Deep venou s thrombosis of lower extremity 369807357 I82.402 Chronic ob structive pulmonary disease 23536013 J44.9 Disorder o f vitamin B12 369375786 E53.8 Disorder of vitamin D 38 0055244 E55.9 Hyperlipidemia 47846314 E78.5 Hypertensive disorder 38 263159 I10 Low back pain 925167604 M54.5 Pulmonary embolism 91232 003 I26.99 Venous ins ufficiency of leg 682161579 I87.2 [id number] Maisha Conroy MD [facility] (Adult Med) [address] [place] [address] [phone] 0 11/27/2019 07:55:08 12/03/2019 05:57:18 Edema of lower extremity 650221581 R60.0 Rheumatoid arthritis 698 50799 M06.9 see labs CCP & RF: 10/24/14 Allergic rhinitis 589394 04 J30.9 Aneurysm o f ascending aorta 608745450 I71.2 Disorder o f vitamin B12 099738212 E53.8 Disorder of vitamin D 38 9098183 E55.9 Hyperlipidemia 50464490 E78.5 Hypertensive disorder 38 368035 I10 Hypothyroidism 58445714 E03.9 Leukopenia 73265926 D72. 819 Arthritis 8876736 M19.90 Chronic ob structive pulmonary disease 89607446 J44.9 Deep venou s thrombosis of lower extremity 327827813 I82.402 Pulmonary embolism 09777 003 I26.99 Venous ins ufficiency of leg 343151883 I87.2 [id number] [facility] [address] [place] [address] 55248-797 0 01/21/2020 08:03:24 01/21/2020 10:48:32 Edema of lower extremity 565155938 R60.0 Administra tion of influenza vaccine 34836226 Z23 Aneurysm o f ascending aorta 595650455 I71.2 Arthritis 9642720 M19.90 Chronic ob structive pulmonary disease 82944005 J44.9 Deep venou s thrombosis of lower extremity 568750489 I82.402 Disorder o f vitamin B12 440256449 E53.8 Disorder of vitamin D 38 2213632 E55.9 Hyperlipidemia 22629711 E78.5 Hypothyroidism 32856145 E03.9 Low back pain 839456985 M54.5 Pulmonary embolism 08962 003 I26.99 Rheumatoid arthritis 698 97118 M06.9 see labs CCP & RF: 10/24/14 Venous ins ufficiency of leg 100617309 I87.2 Allergic rhinitis 359457 04 J30.9 Hypertensive disorder 38 059875 I10 Leukopenia 56456997 D72. 237 [id number] MD [facility] (Adult Med) [address] [place] [address] [phone] 0 03/23/2020 09:04:10 03/23/2020 11:54:07 Rheumatoid arthritis 64076346 M06.9 see labs CCP & RF: 10/24/14 Hypothyroidism 16027826 E03.9 Arthritis 1336726 M19.90 Chronic ob structive pulmonary disease 83188414 J44.9 Deep venou s thrombosis of lower extremity 217089545 I82.402 Disorder o f vitamin B12 712822296 E53.8 Disorder of vitamin D 38 9703042 E55.9 Edema 840804534 R60.9 Hypertensive disorder 38 341375 I10 Leukopenia 96518525 D72. 819 Low back pain 178274131 M54.5 Tobacco user 620913591 Z 72.0 Venous ins ufficiency of leg 422926061 I87.2 [id number] Maisha Conroy MD [facility] (Adult Med) [address] [place] [address] [phone] 0 05/21/2020 08:06:33 05/21/2020 09:48:49 Chronic obstructive pulmonary disease 17938592 J44.9 Acute sinusitis 62458320 J01.90 Allergic rhinitis 588775 04 J30.9 Rheumatoid arthritis 698 65277 M06.9 see labs CCP & RF: 10/24/14 Arthritis 7622080 M19.90 Deep venou s thrombosis of lower extremity 047846190 I82.402 Disorder o f vitamin B12 966051070 E53.8 Disorder of vitamin D 38 4362149 E55.9 Hyperlipidemia 87472492 E78.5 Hypertensive disorder 38 044272 I10 Hypothyroidism 92848774 E03.9 Low back pain 586862037 M54.5 Pulmonary embolism 38647 003 I26.99 Venous ins ufficiency of leg 215493092 I87.2 [id number] Maisha Conroy MD [facility] (Adult Med) [address] [place] [address] 87787-290 0 07/21/2020 08:10:46 07/21/2020 12:40:13 Hyperlipidemia 53950772 E78.5 Depression screening 171 676458 Z13.31 Allergic rhinitis 358220 04 J30.9 Aneurysm o f ascending aorta 762011842 I71.2 Chronic ob structive pulmonary disease 10823198 J44.9 Deep venou s thrombosis of lower extremity 382460648 I82.402 Disorder o f vitamin B12 314037747 E53.8 Disorder of vitamin D 38 8642033 E55.9 Hypertensive disorder 38 978725 I10 Hypothyroidism 94500811 E03.9 Low back pain 691634356 M54.5 Obesity 398124658 E66.9 Pulmonary embolism 63999 003 I26.99 Rheumatoid arthritis 698 26962 M06.9 see labs CCP & RF: 10/24/14 Tobacco user 468231075 Z 72.0 Venous ins ufficiency of leg 307054032 I87.2 [id number] Maisha Conroy MD [facility] (Adult Med) [address] [place] [address] [phone] 0 08/21/2020 09:42:33 08/21/2020 12:29:38 Rheumatoid arthritis 68440395 M06.9 see labs CCP & RF: 10/24/14 Acute sinusitis 84617849 J01.90 Cellulitis of lower limb 194725049 L03.119 Allergic rhinitis 901723 04 J30.9 Pulmonary embolism 26129 003 I26.99 Osteoarthr itis of right knee joint 4251712702 86573 M17.11 Obesity 745621918 E66.9 Low back pain 255149959 M54.5 Hypothyroidism 00522048 E03.9 Hypertensive disorder 38 741753 I10 Hyperlipidemia 92459567 E78.5 Disorder of vitamin D 38 2855793 E55.9 Disorder o f vitamin B12 831113635 E53.8 Aneurysm o f ascending aorta 197462751 I71.2 Chronic ob structive pulmonary disease 55030626 J44.9 [id number] Maisha Conroy MD [facility] (Adult [facility]) [address] [place] [address] [phone] 0 09/23/2020 11:51:39 09/23/2020 12:54:02 Allergic rhinitis 02549281 J30.9 Arthritis 5083874 M19.90 Chronic ob 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 Deep venou s thrombosis of lower extremity 032808301 I82.402 Disorder o f vitamin B12 339933686 E53.8 Disorder of vitamin D 38 6393572 E55.9 Hyperlipidemia 54691546 E78.5 Hypertensive disorder 38 802787 I10 Hypothyroidism 83813086 E03.9 Low back pain 409036144 M54.5 Pulmonary embolism 96653 003 I26.99 Rheumatoid arthritis 698 81419 M06.9 see labs CCP & RF: 10/24/14 Venous ins ufficiency of leg 036169295 I87.2 Tobacco user 471930946 Z 72.0 [id number] [facility] [address] [place] [address] 82728-440 0 11/02/2020 10:39:01 11/02/2020 12:34:01 Allergic rhinitis 01595445 J30.9 Arthritis 1187109 M19.90 Chronic ob structive pulmonary disease 57933487 J44.9 Deep venou s thrombosis of lower extremity 168916212 I82.402 Disorder o f vitamin B12 710580129 E53.8 Disorder of vitamin D 38 9610329 E55.9 Hyperlipidemia 85371219 E78.5 Hypertensive disorder 38 293248 I10 Hypothyroidism 42527604 E03.9 Low back pain 269564202 M54.5 Pulmonary embolism 88572 003 I26.99 Rheumatoid arthritis 698 91697 M06.9 see labs CCP & RF: 10/24/14 Venous ins ufficiency of leg 853360840 I87.2 Tobacco user 531263993 Z 72.0 Cellulitis of lower limb 535170360 L03.119 Increased frequency of urination 101316147 R35.0 [id number] [facility] [address] [place] [address] [phone] 0 12/03/2020 10:26:26 12/03/2020 11:07:55 Acute urinary tract infection 190201956 N39.0 Allergic rhinitis 087339 04 J30.9 Disorder o f vitamin B12 163663365 E53.8 Disorder of vitamin D 38 2921494 E55.9 Hyperlipidemia 00023683 E78.5 Hypertensive disorder 38 400753 I10 Hypothyroidism 70403244 E03.9 Low back pain 275097862 M54.5 Rheumatoid arthritis 698 55362 M06.9 see labs CCP & RF: 10/24/14 Pulmonary embolism 22314 003 I26.99 Venous ins ufficiency of leg 579702526 I87.2 Tobacco user 994084419 Z 72.0 [id number] [facility] [address] [place] [address] [phone] 0 01/06/2021 11:39:54 01/07/2021 12:06:29 Rheumatoid arthritis 55488593 M06.9 see labs CCP & RF: 10/24/14 Constipation 48522888 K5 9.00 Acute urin jessica tract infection 471043449 N39.0 Administra tion of influenza vaccine 05324788 Z23 Chronic ob structive pulmonary disease 13689162 J44.9 Dysuria 13637460 R30.9 Hyperlipidemia 25944437 E78.5 Hypertensive disorder 38 944005 I10 Hypothyroidism 24823174 E03.9 Increased frequency of urination 011908569 R35.0 Obesity 375362165 E66.9 Pulmonary embolism 65905 003 I26.99 Tobacco user 758211282 Z 72.0 Venous ins ufficiency of leg 109994451 I87.2 [id number] MD [facility] (Adult Med) [address] [place] [address] [phone] 0 02/17/2021 10:39:50 02/17/2021 12:50:25 Rheumatoid arthritis 95539941 M06.9 see labs CCP & RF: 10/24/14 Acute urin jessica tract infection 942647983 N39.0 Aneurysm o f ascending aorta 738673538 I71.2 Chronic ob structive pulmonary disease 35295757 J44.9 Deep venou s thrombosis of lower extremity 761606566 I82.402 Hyperlipidemia 32837504 E78.5 Hypertensive disorder 38 697397 I10 Hypothyroidism 84100031 E03.9 Low back pain 161997707 M54.50 Pulmonary embolism 51159 003 I26.99 Venous ins ufficiency of leg 149056182 I87.2 Allergic rhinitis 632461 04 J30.9 Arthritis 0291353 M19.90 Disorder of vitamin D 38 0008356 E55.9 Disorder o f vitamin B12 609223900 E53.8 [id number] [facility] (Peds) [address] [place] [address] [phone] 0 02/17/2021 11:23:34 02/18/2021 08:15:00 Administration of SARS-CoV-2 mRNA vaccine 8397854158 Z23 [id number] MD [facility] (Adult Med) [address] [place] [address] [phone] 0 04/12/2021 10:25:28 04/12/2021 11:41:31 Rheumatoid arthritis 62270932 M06.9 see labs CCP & RF: 10/24/14 Eczema 68912712 L30.9 Allergic rhinitis 884652 04 J30.9 Aneurysm o f ascending aorta 961111975 I71.2 Arthritis 2997939 M19.90 Chronic ob structive pulmonary disease 16996404 J44.9 Deep venou s thrombosis of lower extremity 415348729 I82.402 Disorder o f vitamin B12 797371025 E53.8 Disorder of vitamin D 38 2879200 E55.9 Hyperlipidemia 03669546 E78.5 Hypertensive disorder 38 813582 I10 Hypothyroidism 45519428 E03.9 Obesity 405077593 E66.9 Pulmonary embolism 61841 003 I26.99 Tobacco user 785824755 Z 72.0 Venous ins ufficiency of leg 596723005 I87.2 [id number] MD [facility] (Adult Med) [address] [place] [address] [phone] 0 05/21/2021 09:48:53 05/21/2021 10:47:49 Disorder of vitamin B12 173903169 E53.8 Disorder of vitamin D 38 7554423 E55.9 Hyperlipidemia 97628041 E78.5 Hypertensive disorder 38 472402 I10 Hypothyroidism 24898507 E03.9 Pulmonary embolism 72325 003 I26.99 Venous ins ufficiency of leg 977074301 I87.2 Leukopenia 49335980 D72. 819 Osteoarthr itis of right knee joint 2419534416 86930 M17.11 Rheumatoid arthritis 698 53481 M06.9 see labs CCP & RF: 10/24/14 Allergic rhinitis 626194 04 J30.9 Aneurysm o f ascending aorta 312668600 I71.2 Arthritis 2462935 M19.90 Chronic ob structive pulmonary disease 95727383 J44.9 Deep venou s thrombosis of lower extremity 456026762 I82.402 Low back pain 347583062 M54.50 Tobacco user 593847587 Z 72.0 [id number] MD [facility] (Adult Med) [address] [place] [address] [phone] 0 06/23/2021 09:27:45 06/24/2021 11:23:21 Administration of diphtheria and tetanus vaccine 80062041 Z23 Allergic rhinitis 973972 04 J30.9 Aneurysm o f ascending aorta 261517059 I71.2 Arthritis 2095564 M19.90 Chronic ob structive pulmonary disease 25984080 J44.9 Deep venou s thrombosis of lower extremity 667134942 I82.402 Disorder o f vitamin B12 332876707 E53.8 Disorder of vitamin D 38 8841857 E55.9 Hyperlipidemia 72896544 E78.5 Hypertensive disorder 38 183816 I10 Hypothyroidism 82211840 E03.9 Leukopenia 93046995 D72. 819 Low back pain 512642867 M54.50 Osteoarthr itis of right knee joint 2009992150 74612 M17.11 Pulmonary embolism 08668 003 I26.99 Rheumatoid arthritis 698 52569 M06.9 see labs CCP & RF: 10/24/14 Thyroiditis 71348736 E06 .9 Venous ins ufficiency of leg 165428352 I87.2 [id number] Maisha Conroy MD [facility] (Adult Med) [address] [place] [address] [phone] 0 08/23/2021 10:17:45 08/24/2021 11:21:06 Hypothyroidism 98875675 E03.9 Rheumatoid arthritis 698 96384 M06.9 see labs CCP & RF: 10/24/14 Allergic rhinitis 216369 04 J30.9 Aneurysm o f ascending aorta 288453898 I71.2 Arthritis 9251322 M19.90 Chronic ob structive pulmonary disease 79522570 J44.9 Deep venou s thrombosis of lower extremity 307261614 I82.402 Disorder o f vitamin B12 113287109 E53.8 Hyperlipidemia 47107608 E78.5 Low back pain 111945075 M54.50 Obesity 536669891 E66.9 Pulmonary embolism 93656 003 I26.99 Venous ins ufficiency of leg 992306926 I87.2 Disorder of vitamin D 38 2434083 E55.9 [id number] Maisha Conroy MD [facility] (Adult Med) [address] [place] [address] [phone] 0 09/24/2021 11:05:51 09/27/2021 09:27:34 Essential hypertension 19389443 I10 Screening for malignant neoplasm of breast 402108697 Z12.31 [id number] MD [facility] (Adult Med) [address] [place] [address] [phone] 0 10/29/2021 12:17:21 11/01/2021 13:38:58 Chronic obstructive pulmonary disease 41469326 J44.9 Essential hypertension 60745201 I10 Hypothyroidism 98357944 E03.9 Allergic rhinitis 578974 04 J30.9 Aneurysm o f ascending aorta 560381260 I71.2 Arthritis 1425482 M19.90 Deep venou s thrombosis of lower extremity 902111731 I82.402 Disorder o f vitamin B12 555908144 E53.8 Disorder of vitamin D 38 5160218 E55.9 Hyperlipidemia 91232760 E78.5 Low back pain 090861428 M54.50 Obesity 245287150 E66.9 Osteoarthr itis of right knee joint 6204436712 13955 M17.11 Pulmonary embolism 24406 003 I26.99 Rheumatoid arthritis 698 58526 M06.9 see labs CCP & RF: 10/24/14 Venous ins ufficiency of leg 274352767 I87.2 [id number] MD [facility] (Adult Med) [address] [place] [address] 03880-977 0 11/29/2021 12:29:29 12/20/2021 18:47:47 Urgent desire to urinate 43743984 R39.15 Edema of l ower extremity 264914401 R60.0 Essential hypertension 00326043 I10 Chronic ob structive pulmonary disease 52094735 J44.9 Arthritis 6353107 M19.90 Acute sinusitis 75979501 J01.90 Bacterial vaginosis 4197 23731 N76.0 Urinary incontinence 165 220489 R32 Rheumatoid arthritis 698 09016 M06.9 see labs CCP & RF: 10/24/14 [id number] MD [facility] (Adult Med) [address] [place] [address] [phone] 0 12/30/2021 09:18:29 12/31/2021 16:01:41 Acute sinusitis 74373545 J01.90 Allergic rhinitis 890634 04 J30.9 Arthritis 5025686 M19.90 Chronic ob structive pulmonary disease 91041695 J44.9 Disorder o f vitamin B12 064549965 E53.8 Eczema 12306237 L30.9 Edema of l ower extremity 044850051 R60.0 Essential hypertension 91213178 I10 Hyperlipidemia 88448726 E78.5 Increased frequency of urination 987781531 R35.0 Obesity 901924131 E66.9 Pulmonary embolism 23071 003 I26.99 Rheumatoid arthritis 698 31274 M06.9 see labs CCP & RF: 10/24/14 Thyroiditis 32374719 E06 .9 Tobacco user 632800996 Z 72.0 Constipation 51732828 K5 9.00 Administra tion of influenza vaccine 20624728 Z23 [id number] MD [facility]ac Ame[facility]quita (Adult Med) [address] [place] [address] [phone] 0 02/16/2022 11:32:32 02/18/2022 12:02:58 Low back pain 803349308 M54.50 Cont tramadol [id number] [facility] (Peds) [address] [place] [address] [phone] 0 02/28/2022 09:27:17 03/02/2022 08:57:58 Administration of SARS-CoV-2 mRNA vaccine 7333766088 Z23 [id number] MD Louis GELLER ([employer] [employer] [facility]) [address] [place] [address] 03/22/2022 15:26:53 03/23/2022 11:14:14 Screening for malignant neoplasm of cervix 840043281 Z12.4 - Due for co-testing ; collected today Hypothyroidism 18562230 E03.9 - Last TSH wnl on 10/29/21- Continue follow up with endocrinol ogy Screening for malignant neoplasm of respiratory tract 514930282 Z12.2 Z87.891 - Former smoker with 39 pack-years ; quit smoking in 2016 (7 years ago)- Does meet criteria for annual low-dose CT chest; ordered today Prediabetes 926675975 R7 3.03 - Last A1c 5.7% on 10/29/21- Continue follow up with endocrinol ogy Essential hypertension 51027651 I10 - BP not at goal today- Continue follow up with cardiology History of polyp of colon 611491004 Z86.010 - History of polyps removed at colonoscop y on 03/21/2019; recommende d 3 year follow up [id number] MD Louis GELLER ([employer]) [address] [place] [address] 08/08/2022 15:49:54 08/09/2022 14:28:20 Increased frequency of urination 738055652 R35.0 R39.15 N39.3 - Suspect overactive bladder [...] Body mass index 40+ - severely obese 868619610 Z68.43 - Provided patient with chair exercises today- Continue no-sugar or sugar substitute drinks Constipation 63616497 K5 9.00 - Stable with nightly docusate; refilled today Rheumatoid arthritis 698 17505 M06.9 - Refilled anthony tramadol Hypothyroidism 13719969 E03.9 - Last TSH wnl on 10/29/21- f/u TSH w/ reflex free T4- Continue follow up with endocrinol ogy; may need new referral due to current endocrinol ogist frequently having to reschedule appointmen ts with patient Type 2 catia betes mellitus 24400254 E11.9 - Would like to come off of metformin if possible- f/u A1c [id number] MD Louis GELLER ([employer]) [address] [place] [address] 11/02/2022 10:11:15 11/03/2022 16:14:11 Screening for malignant neoplasm of breast 782279968 Z12.31 - Due for screening mammogram; ordered today Rheumatoid arthritis 698 31906 M06.9 - Refilled home tramadol- Follows with specialist at [facility]- Will be restarting Humira soon Increased frequency of urination 707942958 R35.0 R39.15 N39.3 - 08/08/22: Suspect overactive bladder in addition to pelvic floor dysfunctio n. Referred to urology and pelvic floor PT.- 11/02/22: Has cystoscopy scheduled for next week. Urodynamic testing with urology continues to get reschedule d. Continue following with urologist. Patient has declined pelvic floor PT until urology workup is completed. Type 2 catia betes mellitus 55029842 E11.9 - Last A1c 5.5% on 08/08/22. Weaned off of metformin as of visit on 11/02/22.- LDL: On ezetimibe only. Lipid panel ordered 11/02/22.- Nephropath y screening: serum labs and microalbum in testing ordered 11/02/22- Retinopath y screening: patient to schedule ophtho follow up- Neuropathy screening: to be performed at visit in 3 months Body mass index 40+ - severely obese 786082728 Z68.42 - Down 7 pounds from visit in July- Continue lifestyle changes as previously discussed [id number] [facility] [address] [place] [address] 03/07/2023 08:46:31 03/08/2023 11:36:17 Rheumatoid arthritis 17590337 M06.9 - No need for home tramadol refills at this time. Back on Humira; continue following with rheumatizzy cifuentes at [facility] - will appreciate recommenda tions. Advised to lose additional weight by rheumatizzy gist. Increased frequency of urination 280630909 R35.0 R39.15 N39.3 - 08/08/22: Suspect overactive [...] transferri ng to a different office. Sees Alfredo Ibanezon, PA, at [facility] now. Was told she has a small bladder. Type 2 catia betes mellitus 34165543 E11.9 - Last A1c 5.5% on 08/08/22. Weaned off of metformin as of visit on 11/02/22 with updated A1c 5.4%- LDL: On ezetimibe with LDL 137 on 11/02/22; restarted atorvastat in. f/u new lipid panel- Nephropath y screening: wnl on 11/02/22- Retinopath y screening: reports negative screening done prior to 02/2023- Neuropathy screening: performed 03/07/23 Body mass index 40+ - severely obese 446303152 Z68.42 - Continue lifestyle changes as previously discussed. Will monitor weight while on Ozempic.- Exercise limited by pain from rheumatoid arthritis Muscle pain 21354762 M79 .10 - Cramping at night since starting atorvastat in- f/u BMP and total CK to evaluate for statin-rel ated myopathy vs electrolyt e abnormalit y contributi ng to muscle cramping [id number] MD [facility] ([employer]) [address] [place] [address] 04/18/2023 08:42:04 04/19/2023 10:05:36 Type 2 diabetes mellitus 70725073 E11.9 - On Ozempic, now increasing to 0.5 mg weekly- Last A1c 5.4% on 11/02/22- LDL: At goal with LDL 98 on 03/07/23 on ezetemibe and atorvastat in- Nephropath y screening: wnl on 11/02/22- Retinopath y screening: reports negative screening done prior to 02/2023- Neuropathy screening: performed 03/07/23 Rheumatoid arthritis 698 08100 M06.9 - Back on Humira; continue following with rheumatizzy cifuentes at [facility] - will appreciate recommenda tions. Advised to lose additional weight by rheumatizzy cifuentes. Body mass index 40+ - severely obese 197170043 Z68.42 - Continue lifestyle changes as previously discussed. Will monitor weight while on Ozempic.- Exercise limited by pain from rheumatoid arthritis [id number] MD [facility] ([facility]) [address] [place] [address] 05/31/2023 08:31:17 06/16/2023 09:55:19 Type 2 diabetes mellitus 43476698 E11.9 - Did not tolerate Ozempic due to GI side effects; discontinu ed 05/31/23- Last A1c 5.4% on 11/02/22- LDL: At goal with LDL 98 on 03/07/23 on ezetemibe and atorvastat in- Nephropath y screening: wnl on 11/02/22- Retinopath y screening: reports negative screening done prior to 02/2023- Neuropathy screening: performed 03/07/23 Body mass index 40+ - severely obese 279958206 Z68.42 - Continue lifestyle changes as previously discussed. Advised adequate protein intake and continued daily walks.- Exercise limited by pain from rheumatoid arthritis [id number] MD Louis GELLER ([employer]) [address] [place] [address] 07/14/2023 12:11:33 07/19/2023 19:21:10 Acute upper respiratory infection 51149873 J06.9 - Discussed supportive care at home with emphasis on maintainin g adequate hydration - Provided anticipato ry guidance for when to call office and/or seek emergency treatment - Follow up as needed Essential hypertension 43794600 I10 - BP not at goal today- Continue follow up with cardiology Acute sinusitis 35042999 J01.90 - History and exam most suggestive of acute sinusitis- Will treat with abx: amox-clav 875-125 BID x7d- Recommende d nasal irrigation and fluticason e nasal spray for further symptom management - RTC if no improvemen t in symptoms with abx [id number] MD Louis GELLER ([employer]) [address] [place] [address] 08/31/2023 08:18:08 08/31/2023 21:21:54 Rheumatoid arthritis 79469062 M06.9 - Back on Humira; continue following with rheumatizzy cifuentes at [facility] - will appreciate recommenda tions. Advised to lose additional weight by rheumatizzy cifuentes.- Refilled home tramadol 50 mg BID Constipation 99973543 K5 9.00 - Stable with nightly docusate; refilled today Obesity 067618203 E66.01 Z68.43 - Continue lifestyle changes as previously discussed. 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 Provided copy of POLST forms and reviewed documents with patient.- Return to clinic after discussing wishes for care to sign POLST and to get copies of documents scanned into chart [facility] care team falls assessment done 277725457 Z76.89 - High risk for falls based on STEAYESHA Fall Risk questionna jelani and interview with patient- Provided handout on preventing falls, safety at home Screening for cardiovascular system disease 580397502 Z13.6 - Advised regular physical activity and nutritious diet. Handout on healthy foods provided. Infection screening 0467 49398 Z11.9 - Low risk of STIs- Immunizati on record reviewed and relevant vaccines recommende d Screening for cancer 158 02410 Z12.9 - Reviewed USPSTF A&B recommenda tions for cancer screenings ; tests/refe rrals ordered as indicated Administra tion of viral vaccine 18031847 Z23 Administra tion of pneumococcal vaccine 19326066 Z23 History of polyp of colon 211390258 Z86.0100 - Reports normal colonoscop y in 2022 with recommende d 5 year follow up. Will obtain outside report to confirm. Obesity 190258864 Z68.43 E66.813 - Continue lifestyle changes as previously discussed. Patient not interested in making further dietary changes as of 08/31/23.- Exercise limited by pain from rheumatoid arthritis Dysuria 59851251 R30.0 - Discussed negative dipstick results with patient; no concern for UTI at this time Screening for malignant neoplasm of respiratory tract 466840101 Z12.2 Z87.891 - Former smoker with 39 pack-years ; quit smoking in 2016 (7 years ago)- Does meet criteria for annual low-dose CT chest; ordered today Hepatitis C screening 41 1765089 Z11.59 - Once in lifetime screening per USPSTF recommenda tions Essential hypertension 37453248 I10 - Chronic, controlled - Follows with cardiology - Continue losartan 50 mg daily Hyperlipidemia 65758230 E78.5 - Chronic, controlled - Continue ezetimibe 10 mg daily- Patient has not had atorvastat in filled since 90d supply in September. Will send in refills now, as patient should be on moderate-i ntensity statin for history of diabetes. Hypothyroidism 00199922 E03.9 - Chronic, controlled . Last TSH wnl on 10/29/21 and 07/2022.- Continue levothyrox ine 137 mcg daily pending normal repeat TSH Rheumatoid arthritis 698 62502 M06.9 - On Humira and leflunomid e; continue following with rheumatolo gist at [facility] - will appreciate recommenda tions. Advised to lose additional weight by rheumatolo gist but patient not interested in doing this.- Refilled home tramadol 50 mg BID Type 2 catia betes mellitus 57967914 E11.9 - Chronic, diet-contr olled. Last A1c [...] in 3 months for DM2 foot exam [id number] MD Chelle GELLERhalto ([employer]) [address] [place] [address] 05/30/2024 09:21:21 05/31/2024 14:24:23 Type 2 diabetes mellitus 69282760 E11.21 - Did not tolerate Ozempic in [...] B: due Venous ins ufficiency of leg 497617004 I87.2 - Advised patient to use compressio n stockings first thing in the morning to reduce edema Hyperlipidemia 07184259 E78.5 - Chronic, not at goal. Recommende [...] LDL, but patient prefers to discuss with cardiologi , who she sees within the next couple of weeks. Peripheral vascular disease 023857477 I73.9 - Home assessment through insurance using [employer] shows mild/moder ate disease bilaterall y (0.89-0.30 )- Patient on Xarelto for history of DVT/PE Depression screening 171 971684 Z13.31 - Negative PHQ-9 [id number] MD Louis GELLER ([employer]) [address] [place] [address] 07/19/2024 11:15:14 07/22/2024 14:36:25 Pelvic mass 87347202 R19.00 - 3.[address] scan, unclear if an exophytic mass of the uterus vs an ovarian mass- F/u pelvic ultrasound to further characteri ze this lesion Increased frequency of urination 961530085 R35.0 - 08/08/22: Suspect overactive bladder in [...] office. Sees ROSY Salinas, at [facility] Office now. Was told she has a small bladder.- 07/19/24: Reviewed urologist note from September 2023. Patient uses solifenaci n for symptoms. Reviewed negative dipstick results with the patient. Genitourin jessica syndrome of menopause [id number] N95.8 - Suspect pain with urination and some of the urinary frequency symptoms may be related to GSM- Will treat empiricall y with a vaginal estrogen Lumbar sprain [id number] S33.5XXA - Right-side d lumbar paraspinal muscle [...] Vivas Member ID Guarantor Name 07/14/2023 1 [facility] (MEDICARE REPLACEMENT/A DVANTAGE - HMO) [id number] Nory Uribeber [id number] Grazyna Johansen 08/31/2023 1 [facility] (MEDICARE REPLACEMENT/A DVANTAGE - HMO) [id number] Nory Paula Eleno [id number] Grazyna Eleno 03/01/2024 1 [facility] (MEDICARE REPLACEMENT/A DVANTAGE - HMO) [id number] Nory Paula Laurel [id number] Grazyna Johansen 05/30/2024 1 [facility] (MEDICARE REPLACEMENT/A DVANTAGE - HMO) [id number] Nory Johansen [id number] Grazyna Johansen 07/19/2024 1 [facility] (MEDICARE REPLACEMENT/A DVANTAGE - HMO) [id number] Nory Johansen [id number] Grazyna Johansen Notes Date Note Type Note Provider [...] frequency. BIRGIT JEFFERSON MD Attn: Accounting[address] [place], [address], [facility] 07/18/2023 22:34:14 08/31/2023 text/html Weight loss- Has gained weight since stopping Ozemepic, as patient states she has decided not to watch what she eats- Has been trying to go on walks more and spend time in the garden since the weather is better - [employer] Dr. Newton moving offices to [facility] in [place] BIRGIT JEFFERSON MD Attn: Accounting[address] [place], [address], [facility] 08/31/2023 16:32:28 03/01/2024 text/html Medicare Annual Wellness VisitHealth Risk Assessment (HRA) form: completed by patient and reviewed The following were reviewed and updated in chart:- Past Medical History- Past Surgical History- Medications (OTC and Rx)- Allergies- Family History- Social History Immunizations:- Influenza: UTD- COVID: UTD- RSV (age 60+ with risk factors, age 75+): due- Tdap (if not done in past 10 years): UTD- Pneumococcal: due - PCV20 recommended- Shingles (age 50+): due - will consider at another date USPSTF A and B recommendationsCVD risk- AAA screening - one-time US (men who have ever smoked, age 65-75): N/A- CVD prevention - healthy diet and physical activity counseling: due- HTN screening: see vitals- Prediabetes, DM2 screening (ages 35-70 with overweight or obesity): due- Statin use for primary prevention of CVD - if 10-year CVD risk 10%+ (ages 40-75): UTD - on atorvastatin 10 mg daily- Weight loss to prevent obesity-related morbidity/mortality: due Infection risk- STI counseling - if increased risk for infection: N/A - not sexually active- Syphilis screening - if increased risk for infection: N/A- HepB screening - if increased risk for infection: N/A- HepC screening - once in lifetime: due- HIV screening (up to age 65 + increased risk for infection): UTD - neg in 2014- PrEP - if increased risk of HIV: N/A- Latent TB screening - if increased risk for infection: N/A Cancer screening- Breast cancer screening (ages 40-74) - mammo every 2 years: UTD - BI-RADS 1 (12/2023)- Cervical cancer screening - co-testing every 5 years (ages 30-65): UTD - NILM, neg hr-HPV (03/2022)- Colon cancer screening - colonoscopy vs stool-based testing (ages 45-75): UTD - polyps removed during colonoscopy in 2019 with 3 year follow up recommended; states had it done in 2022 with 5 year follow up due to no polyps- Lung cancer screening - annual LDCT chest (ages 50-80 with 20 pack-year smoking history AND current smoking or quit within past 15 years): due - former smoker, 1 ppd from age 16 till 2016 (39 years) = 39 pack-years Mental health- Depression screening: see PHQ-2/PHQ-9- Anxiety screening (under age 65): UTD - done today Substance use- Tobacco use screening + cessation counseling: see scanned HRA- Unhealthy alcohol use screening + counseling: see scanned HRA- Unhealthy drug use screening: see scanned HRA Bone health- Fall prevention - recommend exercise (age 65+): N/A - age- Osteoporosis screening - DEXA (women ages 65+): N/A - age UTI concerns- Dysuria for past couple of weeks- Has chronic bladder issues, which causes baseline urinary frequency BIRGIT JEFFERSON MD Attn: Accounting[address] [place], [address], [facility] [place]/01/2024 17:43:03 05/30/2024 text/html Diabetes follow upSymptoms- Vision problems: no- Numbness/tingling: no- Hypoglycemia: no- Chest pain: no- Nausea, vomiting, diarrhea: no- Ulcerations or sores: no- Pain in legs when walking: no- Had someone from insurance come to the house yesterday and had A1c checked, which was 4.4%- Also had leg circulation testing done BIRGIT JEFFERSON MD Attn: Accounting[address] [place], [address], [facility] [place] 05/30/2024 12:36:14 07/19/2024 text/html Abnormal CT scan [...] leg BIRGIT JEFFERSON MD Attn: Accounting[address] [place], [address], [facility] [place]/19/2024 17:39:00 OBGyn Episode Ob Episode Information Episode Created Date Number of Fetuses Patient Bloodtype Patient rh Status Prepregnancy Weight lbs Domestic Partner Domestic Partner Phone Father Name Plant Custodian Status 03/22/19 1 CLOSED Fetus Data First Name Last Name Admitted to NICU Weight (g) Sex Living Outcome Pediatric Complications Fetus ID Race Codes Race Delivery Type 2522.87 8704 F Prematur e [id number] Vaginal Bacilio Calculation Initial Bacilio Date Initial [...] Domestic Partner Domestic Partner Phone Father Name Plant Custodian Status 03/22/19 1 CLOSED Fetus Data First Name Last Name Admitted to NICU Weight (g) Sex Living Outcome Pediatric Complications Fetus ID Race Codes Race Delivery Type 595.112 704 F Prematur e [id number] Vaginal Bacilio Calculation Initial Bacilio Date Initial [...] Domestic Partner Domestic Partner Phone Father Name Plant Custodian Status 03/22/19 1 CLOSED Fetus Data First Name Last Name Admitted to NICU Weight (g) Sex Living Outcome Pediatric Complications Fetus ID Race Codes Race Delivery Type 1105.40 3704 M Prematur e [id number] Bacilio Calculation Initial Bacilio Date Initial Exam [...]
[2024-08-15 06:44] LABS: CA-125 5 U/mL (<35)
== END 2024-08-14 09:35 | disposition home or self-care (01) ==
PROVIDERS: PCP Family Medicine; Visit Provider Obstetrics & Gynecology
DX: D39.10 Neoplasm of uncertain behavior of unspecified ovary (principal)
CPT/HCPCS: 36415; 86304

== ENCOUNTER 2024-11-19 13:01 | Outpatient (CLI) | payer MEDICARE, SELFPAY ==
--- NOTE | ~2024-11-19 | US_ITS ---
EXAMINATION: US pelvic complete w TV INDICATION: Follow-up left ovarian cyst Comparison:No prior studies for comparison. TECHNIQUE: Multiple transabdominal and endovaginal sonographic images of the pelvis performed. FINDINGS: The uterus measures 4.8 x 4.7 x 2.9 cm. The endometrial complex measures 3 mm. The left ovary measures 5.6 x 3.3 x 3.5 cm and contains a simple cyst measuring 4.9 x 2.7 x 2.2 cm. There is no free fluid in the pelvis. There are no abnormal masses seen on either side. IMPRESSION: 1. Simple cyst of the left ovary measuring 4.9 cm, likely benign. Consider follow-up ultrasound in 6-12 months to assess for resolution or stability. Reviewed, dictated and finalized at location O. IMPRESSION: 1. Simple cyst of the left ovary measuring 4.9 cm, likely benign. Consider foll ow-up ultrasound in 6-12 months to assess for resolution or stability.
--- OUTSIDE RECORDS SUMMARY | 2024-11-19 13:16 | XMS_ITS | Clinical Summary ---
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
== END 2024-11-19 13:02 | disposition home or self-care (01) ==
PROVIDERS: PCP Family Medicine; Visit Provider Obstetrics & Gynecology
DX: N83.292 Other ovarian cyst, left side (principal); N94.89 Other specified conditions associated with female genital organs and menstrual cycle
CPT/HCPCS: 76830; 76856